=== PATIENT | male | born 1940 | race Caucasian/White ===

== ENCOUNTER 2020-04-15 13:35 | Outpatient (CLI) | payer MEDICARE, BC, SELFPAY | END 2020-04-15 13:36 | disposition home or self-care (01) | LOC: ANHCOVIDVC 13:35 | PROVIDERS: PCP Urology | DX: Z23 Encounter for immunization (principal) | CPT/HCPCS: 0001A; 91300 ==

== ENCOUNTER 2020-05-06 13:25 | Outpatient (CLI) | payer MEDICARE, BC, SELFPAY | END 2020-05-06 13:26 | disposition home or self-care (01) | LOC: ANHCOVIDVC 13:25 | PROVIDERS: PCP Urology | DX: Z23 Encounter for immunization (principal) | CPT/HCPCS: 0002A; 91300 ==

== ENCOUNTER 2020-09-10 15:49 | Outpatient (CLI) | payer MEDICARE, BC, SELFPAY ==
--- NOTE | ~2020-09-10 | XR_ITS ---
EXAMINATION: XR abdomen/kub 1V INDICATION: Right flank pain TECHNIQUE: Supine views of the abdomen were obtained on 2 radiographs. COMPARISON: None FINDINGS: There is a 9 mm calcification projecting in the expected location of the proximal right ure ter at the level of the L4 vertebral body. Stones measuring 7 mm and 5 mm are present in the right ki dney. There are multiple stones of the left kidney which measure up to 11 mm. There are phleboliths o f the pelvis. The bowel gas pattern is normal. There is moderate osteoarthritis of the hips. The visu alized lung bases are clear. Surgical clips in the right upper quadrant are likely from prior cholecy stectomy. IMPRESSION: 1. 9 mm stone projecting in the expected location of the proximal right ureter. 2. Bilateral nephrolithiasis. Reviewed, dictated and finalized at location A.
--- NOTE | ~2020-09-10 | CT_ITS ---
EXAMINATION: CT abdomen pelvis wo con EXAM DATE: 09/10/2020 16:18 INDICATION: Right flank pain. TECHNIQUE: Spiral CT of the abdomen and pelvis was performed without contrast. Axial, coronal and sag ittal images were reviewed. The dose-length product (DLP) for this examination was 413.18 mGy-cm. T he exposure was tailored according to patient size (auto mA exposure control), and iterative reconstr uction (ASIR) was used as additional dose reduction technique. There is no prior study for compariso n. FINDINGS: There is a right renal mass measuring 2.2 cm off the lower pole of the right kidney, hemorr hagic cyst versus renal cell cancer. There is a right proximal ureteral stone measuring 8 mm. There i s mild to moderate right-sided obstructive nephropathy. Multiple other bilateral calyceal stones, up to about 1 cm on the left. There is moderate prostatomegaly. Small bilateral inguinal fat-containing hernias. The bladder is unremarkable. The liver, spleen, adrenal glands and pancreas are unremarka ble. There are cholecystectomy clips. There is no retroperitoneal or pelvic lymphadenopathy. There are no findings to suggest appendicitis. The stomach and small bowel are unremarkable. There is expected amount of colonic stool. There is moderate sigmoid colonic diverticulosis. There is no a djacent inflammatory change to suggest diverticulitis. No free intraperitoneal gas. The heart is normal in size. There are no pericardial or pleural effusions. The lung bases are unremarkable. Th ere are no osteoblastic or osteolytic lesions identified. IMPRESSION: 1. Right-sided hemorrhagic cyst versus renal cell cancer. Follow-up ultrasound or contrast-enhanced CT recommended. 2. Right proximal ureteral 7 mm stone, mild to moderate obstructive nephropathy. 3. Bilateral nephrolithiasis. 4. Moderate sigmoid diverticulosis. 5. Moderate prostatomegaly. Reviewed, dictated and finalized at location B. IMPRESSION: 1. Right-sided hemorrhagic cyst versus renal cell cancer. Follow-up ultrasound or contrast-enhanced CT recommended. 2. Right proximal ureteral 7 mm stone, mild to moderate obstructive nephropath y. 3. Bilateral nephrolithiasis. 4. Moderate sigmoid diverticulosis. 5. Moderate prostatomegaly.
== END 2020-09-10 15:50 | disposition home or self-care (01) ==
LOC: ANHIMG 15:54
PROVIDERS: PCP Internal Medicine; Visit Provider Nurse Practitioner Adult Health
DX: K57.30 Diverticulosis of large intestine without perforation or abscess without bleeding (principal); N40.0 Benign prostatic hyperplasia without lower urinary tract symptoms; N20.2 Calculus of kidney with calculus of ureter
CPT/HCPCS: 74018; 74176

== ENCOUNTER 2020-09-23 10:51 | Outpatient (CLI) | payer MEDICARE, BC, SELFPAY ==
--- NOTE | ~2020-09-23 | XR_ITS ---
EXAMINATION: XR abdomen/kub 1V INDICATION: Right ureteral stone followup TECHNIQUE: Supine views of the abdomen were obtained on 2 radiographs. COMPARISON: 09/10/2020 FINDINGS: The previously described 9 mm right proximal ureteral stone is no longer identified. There are smaller stones, likely stone fragments, in the expected location of the distal right ureter which measure up to 4 mm. Stones measuring 7 mm and 5 mm are present in the right kidney. There are multip le stable stones of the left kidney which measure up to 11 mm. The bowel gas pattern is normal. There is moderate osteoarthritis of the hips. There are phleboliths of the left pelvis. IMPRESSION: 1. Likely interval treatment of the previously described right proximal ureteral stone with small sto ne fragments in the expected location of the distal right ureter. Reviewed, dictated and finalized at location B. IMPRESSION: 1. Likely interval treatment of the previously described right proximal uretera l stone with small stone fragments in the expected location of the distal right ureter.
== END 2020-09-23 10:52 | disposition home or self-care (01) ==
PROVIDERS: PCP Internal Medicine; Visit Provider Nurse Practitioner Adult Health
DX: N20.1 Calculus of ureter (principal)
CPT/HCPCS: 74018

== ENCOUNTER 2020-09-30 16:24 | Outpatient (CLI) | payer MEDICARE, BC, SELFPAY ==
[2020-09-30 17:07] LABS: Hematocrit 43.3 % (42.0-52.0); Hemoglobin 14.8 g/dL (14.0-18.0)
== END 2020-09-30 16:25 | disposition home or self-care (01) ==
PROVIDERS: PCP Internal Medicine; Referring Provider Anesthesiology; Visit Provider Urology
DX: N20.1 Calculus of ureter (principal); D64.9 Anemia, unspecified; Z01.818 Encounter for other preprocedural examination
CPT/HCPCS: 36415; 85014; 85018; 87086

== ENCOUNTER 2020-10-02 05:17 | Day surgery (SDC) | payer MEDICARE, BC, SELFPAY ==
[2020-09-30 15:43] VITALS: BMI 30.4
--- NOTE | ~2020-10-02 | XR_ITS ---
EXAMINATION: XR retrograde pyelo w/stent RT DATE: 10/02/2020 10:51 INDICATION: Right internal ureteral stent placement TECHNIQUE: Fluoroscopic images from a right internal ureteral stent placement are submitted for max varma 19 seconds of fluoroscopy time. 11 fluoroscopic images. FINDINGS: There is a right double-J internal ureteral stent projecting in expected position, with proximal [place] loop at the level of the renal pelvis and distal loop in the pelvis within the bladder lumen. IMPRESSION: 1. Right internal ureteral stent placement. Please refer to real-time procedural findings for kelley romero. Reviewed, dictated and finalized at location A. IMPRESSION: 1. Right internal ureteral stent placement. Please refer to real-time procedu ral findings for details.
--- NOTE | 2020-10-02 08:34 | ECG_ITS ---
Measurements Intervals [place] Rate: 88 P: 0 ID: [id number] QRS: -12 QRSD: 106 T: 12 QT: 375 QTc: 456 Interpretive Statements SINUS RHYTHM WITH FIRST DEGREE AV BLOCK DELAYED PRECORDIAL R/S TRANSITION BORDERLINE T WAVE ABNORMALITY- INFERIOR LEADS BASELINE ARTIFACT- I, II, AVR, AVF ABNORMAL ECG Electronically Signed On 10-02-2020 9:44:54 CDT by Titus Thompson D.O.
--- NOTE | 2020-10-02 08:38 | WPDHPUPDATE1 ---
History and Physical Update Update Date/Time: 10/02/20 08:38 History and Physical has been reviewed, including an updated exam of the patient. There are NO changes in the patient's condition. Risks, benefits, and alternatives have been discussed and questions answered. Patient agrees to proceed with procedure.
[2020-10-02] MEDS: LACTATED RINGERS 1,000 ML 30 ML IV CONT (08:44)
[2020-10-02 08:49] VITALS: BP 148/85; PULSE 93; RESP 18; TEMP 36.9; O2SAT 99
--- NOTE | 2020-10-02 09:00 | WPDHPUPDATE1 ---
History and Physical Update Update Date/Time: 10/02/20 09:00 History and Physical has been reviewed, including an updated exam of the patient. There are NO changes in the patient's condition. Risks, benefits, and alternatives have been discussed and questions answered. Patient agrees to proceed with procedure. Proceed with cysto, right retrograde, right ureteroscopy with stone extraction , stent possible laser
--- NOTE | 2020-10-02 09:11 | WPDANESEPPF ---
Anes - Initial Pre Proc Eval Procedure: Operation Date: 10/02/20 10:00 Proposed Procedures p Cystoscopy, Right Ureteroscopy, Right Retrograde Pyelogram, Right Stone Extraction, Possible Right Stent Placement, - Angel Howell MD s Possible Holmium Laser Procedure - Angel Howell MD Date/Time: 10/02/20 09:11 Surgeon: Angel Howell MD Pre Op Diagnosis: right ureteral stone Patient Data Age: 80 Gender: M Height: 1.83 m Weight: 101.6 kg Last Vital Signs Temp 36.9 C 10/02/20 08:49 Pulse 93 10/02/20 08:49 Resp 18 10/02/20 08:49 BP 148/85 H 10/02/20 08:49 Pulse Ox 99 10/02/20 08:49 Allergies Allergy/AdvReac Type Severity Reaction Status Date / Time No Known Allergies Allergy Verified 10/02/20 08:48 Home Medications Medication Instructions Recorded Confirmed Type allopurinol 300 mg PO DAILY 09/30/20 10/02/20 History amlodipine 10 mg PO HS 09/30/20 10/02/20 History atorvastatin 40 mg PO HS 09/30/20 10/02/20 History calcium carbonate [Caltrate 600] 600 mg PO BID 09/30/20 10/02/20 History ferrous sulfate 325 mg PO DAILY 09/30/20 10/02/20 History hydrocodone-acetaminophen 1 tablet PO Q4-6H PRN 09/30/20 10/02/20 History irbesartan 150 mg PO QAM 09/30/20 10/02/20 History magnesium 200 mg PO DAILY 09/30/20 10/02/20 History multivitamin [Multiple Vitamin] 1 tablet PO DAILY 09/30/20 10/02/20 History omega-3 fatty acids-vitamin E 1 cap PO BID 09/30/20 10/02/20 History [Fish Oil] ondansetron 4 mg PO QID PRN 09/30/20 10/02/20 History selenium 200 mcg PO DAILY 09/30/20 10/02/20 History ustekinumab [Stelara] 90 mg SUBCUT USEASDIRECTD 09/30/20 10/02/20 History vitamin B complex 1 cap PO DAILY 09/30/20 10/02/20 History Patient hx anesthesia problems: none Family hx anesthesia problems: none [facility] Past Medical History Medical History (Updated 10/02/20 @ 09:12 by Robbie Valle MD) HTN (hypertension) Hyperlipidemia Obesity BOSSMAN (obstructive sleep apnea) Surgical History Surgical History (Updated 10/02/20 @ 09:12 by Robbie Valle MD) H/O lithotripsy Social History Social History Smoking status: Former smoker Tobacco type: cigars Smoking end date: 08/13/84 Additional smoking assessment comments: 3 CIGARS/DAY X 10 Alcohol intake: current Drinks per week: 5 Substance use: never Living arrangements: with family Additional living arrangements comments: Spiritual care concerns: No Anes - Eval Final PreProcedure Day of Procedure 10/02/20 09:11 Patient weight: obese Heart: regular rate and rhythm Lungs: clear to auscultation Airway: Mallampati scale class II Neurological: alert and oriented Last oral intake: >/= 8 hours ASA classification: III Emergent: no Anesthetic plan: proceed Anesthesia type and monitoring: general GIVS and standard monitoring Informed Consent: The patient's anesthetic plan and its attendant risks and benefits were discussed with the patient/family/POA. Questions were solicited and answers provided to the satisfaction of the patient/family/POA.
[2020-10-02] MEDS: ceFAZolin 2 GM/D5W 50 ML 2 GM/50 ML BAG IVPB (09:49)
[2020-10-02] MEDS: LIDOCAINE HCL 2% JELLY 5 ML TUBE 1 APPLIC MUCOUS MEM (10:40)
--- NOTE | 2020-10-02 10:44 | W.PM.PROC2 ---
Procedure Note - Detailed Date of Procedure 10/02/20 Pre-op Diagnosis right ureteral stone, right renal stone Post-op Diagnosis same Procedure Performed Cystoscopy, right retrograde pyelogram, right ureteroscopy with stone extraction, holmium laser of right renal calculus, right ureteral stent placement 4.8 Pan[place]ian contour Surgeon Angel Howell MD Anesthesia general Description of Procedure Patient is taken the operative suite correctly identified. Once anesthesia was obtained he was placed in dorsal lithotomy position and prepped and draped usual sterile fashion. Nineteen Panamanian scope inserted the bladder. He does have an enlarged prostate. The right ureteral orifice was cannulated with a guidewire. We dilated with an 810 dilator. Rigid ureteral scope was inserted. He has a very large fragment in the distal ureter which we were able to actually extract and sent for analysis. There were no residual stones in the distal ureter. He had also had a couple of small fragments in the bladder which were retrieved sent for analysis. The ureteral access sheath was then placed. Mini flexible ureteroscope was inserted up in the kidney. He had 1 stone that was in a calyx just for treating from mucosa. We used the holmium laser fiber to fragment this multiple small pieces of retrieve some of those. He had another stone located in a more medial calyx which the scope could not fully flex to get into. We were able to fragment the tip of this off. At this point we terminated procedure. The stone may not be an issue going forward if it is will deal with it appropriately at that time. Pyelogram was then performed to confirm placement of the stent. 4.8 Panamanian contour stent was then placed with the proximal end coiled in the renal pelvis and the distal. Bladder was drained. 2% viscous lidocaine was inserted into the urethra patient was taken recovery room stable condition. He will follow up in a week's time for stent removal. Drains Yes Packing No Pathology yes Complications No immediate complications Condition stable Disposition PACU
[2020-10-02 10:53] VITALS: BP 129/69; PULSE 75; RESP 14; TEMP 36.7; O2SAT 98
[2020-10-02 11:04] VITALS: BP 125/65; PULSE 74; RESP 14; O2SAT 100
--- NOTE | 2020-10-02 11:15 | SUR.PHASEI ---
PT AWAKE, ALERT, TALKATIVE. DENIES PAIN OR NAUSEA.
[2020-10-02 11:20] VITALS: BP 151/77; PULSE 80; RESP 16; O2SAT 95
--- NOTE | 2020-10-02 11:27 | SUR.PHASEI ---
PT AWAKE AND ALERT. TALKATIVE. DENIES PAIN. READY TO SEE SPOUSE.
[2020-10-02 11:40] VITALS: BP 147/55; PULSE 89
[2020-10-02 12:20] VITALS: BP 156/62; PULSE 92; RESP 20
== END 2020-10-02 12:28 | disposition home or self-care (01) ==
PROVIDERS: PCP Internal Medicine; Visit Provider Urology
PROC: (CPT 52352; principal; 2020-10-02 10:00)
PROC: (CPT 52356; 2020-10-02 10:00)
DX: N20.2 Calculus of kidney with calculus of ureter (principal); I10 Essential (primary) hypertension; E78.5 Hyperlipidemia, unspecified; G47.33 Obstructive sleep apnea (adult) (pediatric); Z87.891 Personal history of nicotine dependence; E66.9 Obesity, unspecified; Z68.30 Body mass index [BMI] 30.0-30.9, adult; I44.0 Atrioventricular block, first degree
CPT/HCPCS: 52356; 74420; 82365; 88300; 93005; A9270; C1769; C1894; C2617; J0690; J1100; J2405; J2704; J3010; J7120; Q9966

== ENCOUNTER 2020-11-24 14:50 | Outpatient (CLI) | payer MEDICARE, BC, SELFPAY ==
--- NOTE | ~2020-11-24 | XR_ITS ---
XR abdomen/kub 1V DATE: 11/24/2020 15:13 INDICATION: Right ureteral stone TECHNIQUE: AP projection, 2 views COMPARISON: 10/02/2020 right retrograde pyelogram. Or directly 09/23/2020 KUB FINDINGS: There is an approximately 8 x 11 mm calcification overlying the proximal left ureter. Multiple calcifications overlie the renal silhouettes. Surgical clips overlie right upper quadrant, likely due to cholecystectomy. The psoas shadows are intact. No visceromegaly is evident. There is no evidence of bowel obstruction. Degenerative changes of the thoracic and lumbar spine. There is a benign lucent lesion of the subtroc hanteric area of the proximal left femur with thin sclerotic margin. IMPRESSION: 11 mm proximal left ureteral calcified calculus Bilateral nephrolithiasis Status post cholecystectomy. Cartilage Reviewed, dictated and finalized at Location A. Reviewed, dictated and finalized at location B.
== END 2020-11-24 14:51 | disposition home or self-care (01) ==
LOC: ANHIMG 14:55
PROVIDERS: PCP Internal Medicine; Visit Provider Urology
DX: N20.2 Calculus of kidney with calculus of ureter (principal); Z90.49 Acquired absence of other specified parts of digestive tract
CPT/HCPCS: 74018

== ENCOUNTER 2020-11-30 10:26 | Outpatient (CLI) | payer MEDICARE, BC, SELFPAY ==
[2020-11-30 10:47] LABS: Hemoglobin 13.6 g/dL (14.0-18.0)
[2020-11-30 10:56] LABS: INR 0.9; Prothrombin Time 12.5 Seconds (11.1-14.7)
[2020-11-30 10:57] LABS: Partial Thromboplastin Time 31.7 SECONDS (22.3-36.8)
== END 2020-11-30 10:27 | disposition home or self-care (01) ==
PROVIDERS: Anesthesiology; PCP Internal Medicine; Visit Provider Urology
DX: N20.0 Calculus of kidney (principal); D64.9 Anemia, unspecified; Z01.818 Encounter for other preprocedural examination
CPT/HCPCS: 36415; 85014; 85018; 85610; 85730; 87077; 87086; 87088; 87186

== ENCOUNTER 2020-12-03 11:29 | Outpatient (CLI) | payer MEDICARE, BC, SELFPAY ==
--- NOTE | ~2020-12-03 | XR_ITS ---
XR abdomen/kub 1V 12/03/2020 11:55 Indication: ESWL Procedure: KUB Comparison: 11/24/2020 Findings: There are left renal stones, largest in the renal pelvis near the expected location of the UPJ measuring 12 x 7 mm. There are cholecystectomy clips. Bowel gas pattern is nonobstructive. There are small right renal stones in the lower pole as well. There are pelvic phleboliths. Moderate lumbar spondylosis. Impression: 1: Bilateral nephrolithiasis. Reviewed, dictated and finalized at location B. Impression: 1: Bilateral nephrolithiasis.
== END 2020-12-03 11:30 | disposition home or self-care (01) ==
LOC: ANHIMG 11:31
PROVIDERS: PCP Internal Medicine; Visit Provider Urology
DX: N20.0 Calculus of kidney (principal)
CPT/HCPCS: 74018

== ENCOUNTER 2020-12-04 02:17 | Day surgery (SDC) | payer MEDICARE, BC, SELFPAY ==
[2020-11-27 13:26] VITALS: BMI 29.2
--- NOTE | 2020-11-27 15:43 | PM.HPGS ---
History of Present Illness History of Present Illness Consent: Risks, benefits, and alternatives have been discussed and questions answered. Patient agrees to proceed with procedure. Chief complaint: kidney stones left upj Narrative: Karen Murphy is a 80 year old male who has recently been troubled by persistent dysuria and urinary tract infections. Evaluation for that led to imaging that demonstrates a calcified 11 mm left proximal ureteral stone. He presents for lithotripsy with possible stent placement. After discussion of options he elects for ESWL. He is aware the risk including, but not limited to, adverse cardiopulmonary events, renal bleeding leading to perinephric hematoma, failure to fracture the stone need for repeat or additional procedures. Review of Systems Cardiovascular: Cardiovascular: Denies chest pain, Denies lightheadedness, Denies palpitations and Denies dyspnea Respiratory: Respiratory: Denies dyspnea Gastrointestinal: Gastrointestinal: Denies diarrhea, Denies nausea and Denies vomiting Genitourinary: Genitourinary: Denies hematuria and Denies dysuria Endocrine: Endocrine: Denies palpitations PMF Past Medical History Medical History HTN (hypertension) Hyperlipidemia Obesity BOSSMAN (obstructive sleep apnea) Surgical History Surgical History H/O lithotripsy Social History Social History Smoking status: Former smoker Tobacco type: cigarettes and cigars Smoking end date: 08/13/84 Additional smoking assessment comments: 3 CIGARS/DAY X 10 Alcohol intake: current Drinks per week: 7 Substance use: never Additional living arrangements comments: Spiritual care concerns: No Meds Home Medications and Allergies Home Medications Medication Instructions Recorded Confirmed Type Stelara 90 mg SUBCUT USEASDIRECTD 09/30/20 11/27/20 History allopurinol 300 mg PO DAILY 09/30/20 11/27/20 History amlodipine 10 mg PO HS 09/30/20 11/27/20 History atorvastatin 40 mg PO HS 09/30/20 11/27/20 History calcium carbonate 600 mg PO BID 09/30/20 11/27/20 History ferrous sulfate 325 mg PO DAILY 09/30/20 11/27/20 History hydrocodone-acetaminophen 1 tablet PO Q4-6H PRN 09/30/20 11/27/20 History irbesartan 150 mg PO QAM 09/30/20 11/27/20 History magnesium 200 mg PO DAILY 09/30/20 11/27/20 History multivitamin 1 tablet PO DAILY 09/30/20 11/27/20 History omega-3 fatty acids-vitamin E 1 cap PO BID 09/30/20 11/27/20 History selenium 200 mcg PO DAILY 09/30/20 11/27/20 History vitamin B complex 1 cap PO DAILY 09/30/20 11/27/20 History sulfamethoxazole-trimethoprim 1 tablet PO BID 11/27/20 11/27/20 History Allergies Allergy/AdvReac Type Severity Reaction Status Date / Time No Known Allergies Allergy Verified 11/27/20 13:25 Exam Const: General: no acute distress Resp: Effort & Inspection: normal respiratory effort GI: Inspection: non-distended GI Palp: No abdominal tenderness and No Guarding due to palpation present (GI) Auscultation: normal bowel sounds Assessment and Plan Assessment and plan (1) Left ureteral stone: Code(s): N20.1 - Calculus of ureter Status: Acute Assessment and Plan: Left ESWL, possible cystoscopy with left ureteral stent placement
--- NOTE | ~2020-12-04 | XR_ITS ---
EXAMINATION: XR abdomen/kub 1V DATE: 12/04/2020 06:48 INDICATION: Kidney stone. TECHNIQUE: A supine view of the abdomen on 2 radiographs was obtained. COMPARISON: CT abdomen and pelvis 09/10/2020 FINDINGS: There are no dilated loops of bowel. Surgical clips in the right upper quadrant are likely from cholecystectomy. There are least 4 stones in right kidney measuring up to 4 mm. There are at mami st 5 stones in left kidney measuring up to 7 mm. There is an 7 x 12 mm stone in proximal left ureter. There are phleboliths in left pelvis. IMPRESSION: 1. Stones in the kidneys and proximal left ureter. Reviewed, dictated and finalized at location A.
--- NOTE | 2020-12-04 06:53 | WPDHPUPDATE1 ---
History and Physical Update Update Date/Time: 12/04/20 06:53 History and Physical has been reviewed, including an updated exam of the patient. There are NO changes in the patient's condition. Risks, benefits, and alternatives have been discussed and questions answered. Patient agrees to proceed with procedure.
--- NOTE | 2020-12-04 07:51 | WPDANESEPPF ---
Anes - Initial Pre Proc Eval Procedure: Operation Date: 12/04/20 08:30 Proposed Procedures p Left Extracorporeal Shock Wave Lithotripsy - Gerard Lombardi MD Date/Time: 12/04/20 07:51 Surgeon: Gerard Lombardi MD Pre Op Diagnosis: kidney stones left upj Patient Data Age: 80 Gender: M Height: 1.83 m Weight: 100.4 kg Allergies Allergy/AdvReac Type Severity Reaction Status Date / Time No Known Allergies Allergy Verified 12/04/20 07:02 Home Medications Medication Instructions Recorded Confirmed Type Stelara 90 mg SUBCUT USEASDIRECTD 09/30/20 11/27/20 History allopurinol 300 mg PO DAILY 09/30/20 12/04/20 History amlodipine 10 mg PO HS 09/30/20 12/04/20 History atorvastatin 40 mg PO HS 09/30/20 12/04/20 History calcium carbonate 600 mg PO BID 09/30/20 12/04/20 History ferrous sulfate 325 mg PO DAILY 09/30/20 12/04/20 History hydrocodone-acetaminophen 1 tablet PO Q4-6H PRN 09/30/20 11/27/20 History irbesartan 150 mg PO QAM 09/30/20 12/04/20 History magnesium 200 mg PO DAILY 09/30/20 12/04/20 History multivitamin 1 tablet PO DAILY 09/30/20 12/04/20 History omega-3 fatty acids-vitamin E 1 cap PO BID 09/30/20 12/04/20 History selenium 200 mcg PO DAILY 09/30/20 12/04/20 History vitamin B complex 1 cap PO DAILY 09/30/20 12/04/20 History Patient hx anesthesia problems: none Family hx anesthesia problems: none Results Review: All pre-operative results and documents have been reviewed as part of the pre-operative evaluation. [facility] Past Medical History Medical History HTN (hypertension) Hyperlipidemia Obesity BOSSMAN (obstructive sleep apnea) Surgical History Surgical History (Updated 12/04/20 @ 07:52 by Robbie Valle MD) H/O colonoscopy H/O lithotripsy Social History Social History Smoking status: Former smoker Tobacco type: cigarettes and cigars Smoking end date: 08/13/84 Additional smoking assessment comments: 3 CIGARS/DAY X 10 Alcohol intake: current Drinks per week: 7 Substance use: never Living arrangements: with family Additional living arrangements comments: Spiritual care concerns: No Anes - Eval Final PreProcedure Day of Procedure 12/04/20 07:51 Patient weight: obese Heart: regular rate and rhythm Lungs: clear to auscultation Airway: Mallampati scale class II Neurological: alert and oriented Last oral intake: >/= 8 hours ASA classification: III Emergent: no Anesthetic plan: proceed Anesthesia type and monitoring: general LMA and standard monitoring Results Review: All pre-operative results and documents have been reviewed as part of the pre-operative evaluation. Informed Consent: The patient's anesthetic plan and its attendant risks and benefits were discussed with the patient/family/POA. Questions were solicited and answers provided to the satisfaction of the patient/family/POA.
[2020-12-04] MEDS: LACTATED RINGERS 1,000 ML 30 ML IV CONT (08:10)
[2020-12-04] MEDS: ceFAZolin 2 GM/D5W 50 ML 2 GM/50 ML BAG IVPB (08:13)
--- NOTE | 2020-12-04 08:37 | W.PM.PROC2 ---
Procedure Note - Detailed Date of Procedure 12/04/20 Pre-op Diagnosis Left proximal ureteral stone Post-op Diagnosis same Procedure Performed Left ESWL Surgeon Gerard Lombardi MD Anesthesia general Description of Procedure The patient was brought to the operative suite where he was placed in the supine position on the Dornier lithotripsy table. The focal point of the lithotripter was placed at a 7x12mm left proximal ureteral calculus. A total of 3000 shocks were delivered at a power setting of 4. There appeared to be good fragmentation of the stone. The patient tolerated the procedure well and was taken to the recovery room in good condition. Estimated Blood Loss 0 Drains No Packing No Pathology none sent Complications No immediate complications Condition stable Disposition PACU
[2020-12-04 09:05] VITALS: BP 113/77; PULSE 87; RESP 8; TEMP 36.5; O2SAT 100
[2020-12-04 09:20] VITALS: BP 116/65; PULSE 78; RESP 17; O2SAT 100
[2020-12-04 09:34] VITALS: BP 125/68; PULSE 81; RESP 16; O2SAT 96
[2020-12-04 09:49] VITALS: BP 123/69; PULSE 86; RESP 16; O2SAT 96
[2020-12-04 10:00] VITALS: BP 149/84; PULSE 89
[2020-12-04 10:20] VITALS: BP 150/71; PULSE 90
== END 2020-12-04 10:31 | disposition home or self-care (01) ==
PROVIDERS: PCP Internal Medicine; Visit Provider Urology
PROC: (CPT 50590; principal; 2020-12-04 08:30)
DX: N20.1 Calculus of ureter (principal); I10 Essential (primary) hypertension; E78.5 Hyperlipidemia, unspecified; G47.33 Obstructive sleep apnea (adult) (pediatric); E66.9 Obesity, unspecified; Z68.30 Body mass index [BMI] 30.0-30.9, adult; Z87.891 Personal history of nicotine dependence
CPT/HCPCS: 50590; 74018; J0690; J1100; J2405; J2704; J3010; J7120

== ENCOUNTER 2020-12-10 14:57 | Outpatient (CLI) | payer MEDICARE, BC, SELFPAY ==
--- NOTE | ~2020-12-10 | XR_ITS ---
XR abdomen/kub 1V 12/10/2020 15:27 Indication: Renal stones. Lithotripsy. Procedure: KUB Comparison: Comparison to multiple prior studies sequentially, with oldest reviewed study dated 09/23. Findings: Stable bilateral renal stone burden compared with 12/04/2020. There are more stones in the left kidney compared with the right. Largest presumably in the left renal pelvis measuring 14 x 7 mm. There are cholecystectomy clips. Bowel gas pattern is nonobstructive. Stable benign-appearing circum scribed radiolucent lesion proximal aspect of the left femur. No acute osseous abnormality. Impression: 1: Stable bilateral nephrolithiasis. Largest stone burden in the left kidney. Reviewed, dictated and finalized at location A. Impression: 1: Stable bilateral nephrolithiasis. Largest stone burden in the left kidney.
== END 2020-12-10 14:58 | disposition home or self-care (01) ==
PROVIDERS: PCP Internal Medicine; Visit Provider Urology
DX: N20.0 Calculus of kidney (principal)
CPT/HCPCS: 74018

== ENCOUNTER 2020-12-24 13:41 | Outpatient (CLI) | payer MEDICARE, BC, SELFPAY ==
--- NOTE | ~2020-12-24 | XR_ITS ---
XR abdomen/kub 1V 12/24/2020 14:06 Indication: Renal stone Procedure: KUB Comparison: Comparison to multiple prior studies sequentially, with oldest reviewed study dated 11/13. Findings: There are left renal stones. There is a left pelvic phlebolith. No pattern is nonobstructiv e. There are small right renal stones. Impression: 1: Bilateral nephrolithiasis. Reviewed, dictated and finalized at location A. SCHEDULER Impression: 1: Bilateral nephrolithiasis.
== END 2020-12-24 13:42 | disposition home or self-care (01) ==
PROVIDERS: PCP Internal Medicine; Visit Provider Urology
DX: N20.0 Calculus of kidney (principal)
CPT/HCPCS: 74018

== ENCOUNTER 2020-12-28 15:47 | Emergency (ER) | payer MEDICARE, BC, SELFPAY ==
--- NOTE | ~2020-12-28 | CT_ITS ---
EXAMINATION: CT abdomen pelvis wo con DATE: 12/28/2020 19:41 INDICATION: Nephrolithiasis presenting with left flank pain. TECHNIQUE: Computed tomography (CT) of the abdomen and pelvis was performed without intravenous contr ast. Automated exposure control and iterative reconstruction technique were employed. The dose-length product was 354.59 mGy-cm. COMPARISON: 09/10/2020 FINDINGS: Minimal dependent atelectasis at the bilateral lung bases. Heart size is normal. No pericardial or pl eural effusion. Aortic valve calcification. Cholecystectomy clips the gallbladder fossa. Mild diffuse hepatic steatosis. Spleen and bilateral adrenal glands are normal. Mild fatty atrophy of the pancrea s. Bilateral nephrolithiasis with 4 stones in the right kidney measuring up to 4 mm and 5 stones in t he left kidney measuring up to 6 mm. 9 x 6 x 5 mm proximal left ureteral stone with mild to moderate left hydroureteronephrosis. Bilateral low-attenuation renal cysts. In addition there are couple indet erminate exophytic renal lesions with greater than simple fluid attenuation measuring 9 mm at the upp er pole of the left kidney and 2.3 cm the lower pole of the right kidney which could represent either proteinaceous/hemorrhagic cysts or solid renal cell carcinomas. There is moderate colonic diverticul osis with a sigmoid predominance. There is no adjacent inflammatory change to suggest diverticulitis . Normal appendix. No bowel obstruction. Bladder is normal. Prostatomegaly. Small fat-containing left inguinal hernia. No free intraperitoneal gas or fluid. No pathologically enlarged abdominal or pelvi c lymphadenopathy. Moderate to severe bilateral sacroiliitis versus osteoarthritis. IMPRESSION: 1. Bilateral nephrolithiasis with obstructing 9 x 6 x 5 mm proximal left ureteral stone with mild to moderate left hydroureteronephrosis. 2. Couple indeterminate exophytic lesions at the left and right kidneys, the larger on the right susy uring 2.3 cm which are equivocal for complex cyst versus renal cell carcinoma. Recommend follow-up pr e and postcontrast MRI or CT. 3. Moderate diverticulosis. 4. Moderate prostatomegaly. Reviewed, dictated and finalized at location A. OR PYTHON DEVELOPER IMPRESSION: 1. Bilateral nephrolithiasis with obstructing 9 x 6 x 5 mm proximal left ureter al stone with mild to moderate left hydroureteronephrosis. 2. Couple indeterminate exophytic lesions at the left and right kidneys, the la rger on the right measuring 2.3 cm which are equivocal for complex cyst versus renal cell carcinoma. Recommend follow-up pre and postcontrast MRI or CT. 3. Moderate diverticulosis. 4. Moderate prostatomegaly.
[2020-12-28 16:01] VITALS: BP 157/82; PULSE 108; RESP 20; TEMP 37.7; O2SAT 99
[2020-12-28 16:20] LABS: Basophils Percent Auto 0.3 % (0.2-1.2); Eosinophils Absolute Auto 0.1 K/mm3 (0-0.3); Hematocrit 39.6 % (42.0-52.0); Hemoglobin 13.3 g/dL (14.0-18.0); Immature Granulocyte Absolute 0.07 K/mm3 (0.00-0.031); Immature Granulocyte Percent A 1.1 % (0-0.5); Lymphocytes Absolute Auto 1.51 K/mm3 (0.9-3.2); Lymphocytes Percent Auto 24.3 % (18.3-44.2); Mean Corpuscular HGB Conc 33.6 g/dl (32-36); Mean Corpuscular Hemoglobin 30.9 pg (26-34); Mean Corpuscular Volume 92.1 fl (80-100); Mean Platelet Volume 10.5 fl (7.4-10.4); Monocytes Absolute Auto 0.5 K/mm3 (0.1-0.6); Monocytes Percent Auto 8.5 % (2.6-8.5); Neutrophils Percent Auto 64.8 % (45.5-73.1); Platelet Count Result 213 k/mm3 (150-375); Red Cell Distribution Width 14.7 % (11.5-14.5); White Blood Count 6.2 K/mm3 (4.5-10.0)
[2020-12-28 16:37] LABS: Alanine Aminotransferase 24 U/L (4-50); Albumin Level 4.3 g/dL (3.5-5.1); Alkaline Phosphatase 125 U/L (38-126); Anion Gap 13 mmol/L (8-16); Aspartate Amino Transferase 26 U/L (17-59); Bilirubin,Total 0.5 mg/dL (0.2-1.3); Blood Urea Nitrogen 24 mg/dL (9-20); Calcium 9.5 mg/dL (8.4-10.2); Carbon Dioxide 22 mmol/L (22-30); Chloride 105 mmol/L (98-107); Estimated CRCL calculation 45 ml/min; Estimated Glomerular Filt Rate 53; Glucose 159 mg/dL (65-110); Lipase 76 U/L (23-300); Potassium 3.9 mmol/L (3.4-5.0); Sodium 140 mmol/L (137-145)
[2020-12-28 17:06] LABS: Add Urine Microscopic? YES; Appearance Urine Cloudy (Clear); Bacteria Urine Trace /hpf; Bilirubin Urine Negative (Negative); Color Urine Yellow (Yellow); Glucose Urine UA Negative (Negative); Ketones Urine Negative (Negative); Leukocyte Esterase Ur 3+ LEU/UL (Negative); Mucus Urine Rare /lpf; Nitrate Urine Negative (Negative); Protein Urine 1+ mg/dL (Negative); Specific Grav Ur 1.013 (1.001-1.035); Urobilinogen Urine Negative mg/dL (<2.0); WBC Urine >75 /hpf
[2020-12-28 17:08] LABS: Blood Urine Negative (Negative)
[2020-12-28 19:30] VITALS: BP 157/82; PULSE 82; RESP 16; TEMP 37.7; O2SAT 99
--- NOTE | 2020-12-28 20:14 | PC.NURSE ---
charted on wrong pt= this patient- at 2008= disregard the notes from 2008 fo this patient.
--- NOTE | 2020-12-28 20:25 | ED.GENADULT ---
HPI - General Adult General Chief complaint: Fever Stated complaint: kidney stone Time Seen by Provider: 12/28/20 19:15 Source: patient Mode of arrival: ambulatory Limitations: no limitations History of Present Illness HPI narrative: Patient is a 80-year-old male male presenting with chief complaint of intermittent left-sided flank pain and fevers over the past week. Patient reports that on 04 December he had a lithotripsy performed by Dr. Contreras. He states that he was told that additional stones were seen that were very large and they were unsure if he will pass it. Patient states that he had a follow-up on December 15 and was told that he has still not passed a large stone and they were going to give an additional 10 days. Patient reports that he has had some intermittent fevers some low-grade and some as high as 102 ?F. Patient reports that he last took Tylenol at 8 AM this morning. Patient denies any nausea or vomiting. He denies any abdominal pain or flank pain at this time. Patient reports that he urinates frequently and notices states of irritation. Patient reports that he saw Dr. Contreras' office and spoke to Sheri the nurse practitioner who directed him to the emergency department. Related Data Home Medications Medication Instructions Recorded Confirmed Stelara 90 mg SUBCUT USEASDIRECTD 09/30/20 11/27/20 allopurinol 300 mg PO DAILY 09/30/20 12/04/20 amlodipine 10 mg PO HS 09/30/20 12/04/20 atorvastatin 40 mg PO HS 09/30/20 12/04/20 calcium carbonate 600 mg PO BID 09/30/20 12/04/20 ferrous sulfate 325 mg PO DAILY 09/30/20 12/04/20 hydrocodone-acetaminophen 1 tablet PO Q4-6H PRN 09/30/20 11/27/20 irbesartan 150 mg PO QAM 09/30/20 12/04/20 magnesium 200 mg PO DAILY 09/30/20 12/04/20 multivitamin 1 tablet PO DAILY 09/30/20 12/04/20 omega-3 fatty acids-vitamin E 1 cap PO BID 09/30/20 12/04/20 selenium 200 mcg PO DAILY 09/30/20 12/04/20 vitamin B complex 1 cap PO DAILY 09/30/20 12/04/20 Allergies Allergy/AdvReac Type Severity Reaction Status Date / Time No Known Allergies Allergy Verified 12/28/20 19:32 Review of Systems Review of Systems: CONSTITUTIONAL: Reports fever, denies chills, or sweats. EYES: Denies visual changes, redness, or discharge. ENT: Denies rhinorrhea, congestion, sore throat, or otalgia. CARDIOVASCULAR: Denies chest pain, palpitations, or edema. RESPIRATORY: Denies cough or dyspnea. GASTROINTESTINAL: Denies abdominal pain, nausea, vomiting, or diarrhea. GENITOURINARY: Reports dysuria and intermittent flank pain denies hematuria. SKIN: Denies rash or itching. MUSCULOSKELETAL: Denies back pain, joint pain, or myalgia. NEUROLOGIC: Denies headache, numbness, dizziness, or weakness. PSYCHIATRIC: Denies anxiety or depression. [facility]LY [facility] Past Medical History Medical History (Updated 12/28/20 @ 20:53 by Jeimy Montiel PA-C) HTN (hypertension) Hyperlipidemia Obesity BOSSMAN (obstructive sleep apnea) Surgical History Surgical History (Updated 12/04/20 @ 07:52 by Robbie Valle MD) H/O colonoscopy H/O lithotripsy Social History Social History Smoking status: Former smoker Tobacco type: cigarettes and cigars Smoking end date: 08/13/84 Additional smoking assessment comments: 3 CIGARS/DAY X 10 Alcohol intake: current Drinks per week: 7 Substance use: never Additional living arrangements comments: Spiritual care concerns: No Exam Narrative: GENERAL: Well-appearing, well-nourished, and in no acute distress. Nontoxic in appearance. HEAD: Normocephalic, atraumatic. EYES: PERRLA and EOMI. ENT: Nares clear, no rhinorrhea or epistaxis. Mucous membranes moist. Oropharynx without tonsillar hypertrophy exudate or other lesions. Bilateral TMs pearly resendez nonbulging CHEST: Clear to auscultation. No respiratory distress. No wheezes rales or rhonchi HEART: Sinus arrhythmia auscultated. ABDOMEN: Soft, nontender, nondistended, n
[2020-12-28 21:13] VITALS: BP 146/74; PULSE 98; RESP 16; TEMP 37.6; O2SAT 99
--- NOTE | 2020-12-28 21:25 | PC.NURSE ---
Cefriaxone hung and given. Medication would not scan due to broken label.
== END 2020-12-28 21:25 | disposition home or self-care (01) ==
PROVIDERS: Emergency Medicine; Emergency Provider Emergency Medicine; PCP Internal Medicine
DX: N13.2 Hydronephrosis with renal and ureteral calculous obstruction (principal); R82.998 Other abnormal findings in urine; I10 Essential (primary) hypertension; E78.5 Hyperlipidemia, unspecified; G47.33 Obstructive sleep apnea (adult) (pediatric); E66.9 Obesity, unspecified; Z68.29 Body mass index [BMI] 29.0-29.9, adult; Z87.891 Personal history of nicotine dependence; K57.90 Diverticulosis of intestine, part unspecified, without perforation or abscess without bleeding; N40.0 Benign prostatic hyperplasia without lower urinary tract symptoms; N28.9 Disorder of kidney and ureter, unspecified
CPT/HCPCS: 36415; 74176; 80053; 81001; 83690; 85025; 87086; 87147; 87181; 87186; 99284

== ENCOUNTER 2021-01-01 02:09 | Day surgery (SDC) | payer MEDICARE, BC, SELFPAY ==
--- NOTE | 2020-12-30 11:17 | PC.NURSE ---
Report to the Outpatient Waiting Room, entrance under the green pavilion located off [facility], at time _1000 on date __01/01/21 . OR Time: _1200 . - You and your visitor will be asked a series of questions to screen for COVID 19 for your protection. - A mask is required within the hospital. - Only one visitor is allowed at this time. Patient visitors will be guided where to wait when not with patient. Preoperative COVID Testing Requirements: No COVID Test needed if: (proof is required; if not received patient will have Rapid Test prior to entry) - Patient has received COVID Vaccine at least 14 days prior to procedure date or - Patient has positive COVID test result within last 90 days of surgery date. COVID Test needed if above criteria is not met If not COVID vaccinated a COVID test must be conducted within 72 hours of surgery and patient is asked to isolate self from time of testing until procedure. You will go to the [facility] for your COVID testing. The [facility] is located at the corner of [address] [facility]. You will only be called if COVID results are positive and your surgeon may reschedule your elective surgery date. Patients may have clear liquids (water, carbonated beverages, clear teas, apple juice) until 3 hours prior to surgery with a maximum of 20 ounces. - No food from midnight until time of surgery - Infants may have breast milk until 4 hours before surgery, infant formula 6 hours prior to surgery. - Children will be allowed to drink immediately following surgery. If applicable, please bring a bottle or sippy cup to assist with drinking. Juice, water, soda, and popsicles are readily available. For infants on formula, please bring formula the day of surgery. Pacifiers are allowed. Take the following medications with a SIP of water the morning of surgery: ___CIPRO,PAIN PILL IF NEEDED Medications to discontinue per physician ___ALL VITAMINS AND SUPPLEMENTS 3 DAYS PRE OP Date to take last dose__12/28/20 Please no make-up, nail bulgarian, hairspray, perfume, deodorant, or body powder the day of surgery. No jewelry (including any body piercings) or valuables the day of surgery, leave them at home. Please take a shower or bath the night before, or the morning of, surgery with an antibacterial soap. Wear comfortable, loose fitting clothing. Children are encouraged to wear pajamas. - Jewelry must be removed prior to entering the operating room. Rings and piercings that are not removed may be cut off. - The hospital will not accept responsibility for valuables. - Please leave all valuables, including medications, at home the day of surgery. If you are going home after surgery, a licensed maintenance truck driver must drive you home. - NO public transportation without another adult. - We recommend that an adult stay with you for 24 hours following discharge. - We also recommend that you do not drive, make important decision, drink alcoholic beverages, or take any drugs that were not prescribed by your health care provider for at least 24 hours after your discharge time. For Pediatric surgeries, we recommend two adults accompany the child home (only one inside the building at this time). Follow any additional instructions given to you from your surgeon. Telephone instructions given to PATIENTS RICK PEREZ and asked if any additional questions and then verbalized understanding. Patient advised to call surgeon office or pre surgery nurse liaison [phone] if any additional questions.
--- NOTE | 2020-12-30 11:21 | PC.NURSE ---
CHRIS STATES NO CHANGE IN HEALTH HX SINCE LAST INTERVIEW ON 12/28/20
[2020-12-30 11:29] VITALS: BMI 29.8
[2021-01-01] VITALS (7 sets, daily range): BP systolic 121–157; BP diastolic 68–83; PULSE 88–107; RESP 16–20; TEMP 36.1–36.5; O2SAT 96–100; BMI 29.7
--- NOTE | ~2021-01-01 | XR_ITS ---
EXAMINATION: XR abdomen/kub 1V DATE: 01/01/2021 10:18 INDICATION: Kidney stone. TECHNIQUE: A supine view of the abdomen on 2 radiographs was obtained. COMPARISON: Abdomen radiographs 12/24/2020, CT abdomen and pelvis 12/28/2020 FINDINGS: There are no dilated loops of bowel. Surgical clips in the right upper quadrant are likely from cholecystectomy. There are 5 mm and 4 mm stones in right kidney. There are 4 visible stones in l eft kidney measuring up to 7 mm. There is a 12 x 6 mm stone in proximal left ureter. There are phlebo liths in left pelvis. IMPRESSION: 1. Stones in the kidneys and proximal left ureter. Reviewed, dictated and finalized at location A. IN[employer] LOUNGE RECEPTIONIST
[2021-01-01] MEDS: LACTATED RINGERS 1,000 ML 30 ML IV CONT (11:00)
--- NOTE | 2021-01-01 11:02 | WPDANESEPPF ---
Anes - Initial Pre Proc Eval Procedure: Operation Date: 01/01/21 12:00 Proposed Procedures p Left Extracorporeal Shock Wave Lithotripsy, - Gerard Lombardi MD s Possible Cystoscopy, Possible Left Ureteral Stent Placement - Gerard Lombardi MD Date/Time: 01/01/21 11:02 Surgeon: Gerard Lombardi MD Pre Op Diagnosis: left ureteral and renal stones Patient Data Age: 80 Gender: M Height: 1.83 m Weight: 99.8 kg Allergies Allergy/AdvReac Type Severity Reaction Status Date / Time No Known Allergies Allergy Verified 12/30/20 11:06 Home Medications Medication Instructions Recorded Confirmed Type Stelara 90 mg SUBCUT USEASDIRECTD 09/30/20 12/30/20 History allopurinol 300 mg PO DAILY 09/30/20 12/30/20 History amlodipine 10 mg PO HS 09/30/20 12/30/20 History atorvastatin 40 mg PO HS 09/30/20 12/30/20 History calcium carbonate 600 mg PO BID 09/30/20 12/30/20 History ferrous sulfate 325 mg PO DAILY 09/30/20 12/30/20 History hydrocodone-acetaminophen 1 tablet PO Q4-6H PRN 09/30/20 12/30/20 History irbesartan 150 mg PO QAM 09/30/20 01/01/21 History magnesium 200 mg PO DAILY 09/30/20 12/30/20 History multivitamin 1 tablet PO DAILY 09/30/20 12/30/20 History omega-3 fatty acids-vitamin E 1 cap PO BID 09/30/20 12/30/20 History selenium 200 mcg PO DAILY 09/30/20 12/30/20 History vitamin B complex 1 cap PO DAILY 09/30/20 12/30/20 History ciprofloxacin HCl [Cipro] 500 mg PO Q12H #14 tablet 12/28/20 01/01/21 Rx Laboratory Tests 01/01/21 10:47 PT Pending INR Pending APTT Pending Patient hx anesthesia problems: none Family hx anesthesia problems: none Results Review: All pre-operative results and documents have been reviewed as part of the pre-operative evaluation. [facility] Past Medical History Medical History HTN (hypertension) Hyperlipidemia Obesity BOSSMAN (obstructive sleep apnea) Surgical History Surgical History H/O colonoscopy H/O lithotripsy Social History Social History Smoking status: Former smoker Tobacco type: cigars Smoking end date: 08/13/84 Additional smoking assessment comments: CIGARS 3 DAY X 10 YRS Alcohol intake: current Drinks per week: 7 Substance use: never Living arrangements: with family Additional living arrangements comments: Spiritual care concerns: No Anes - Eval Final PreProcedure Day of Procedure 01/01/21 11:02 Patient weight: overweight Heart: regular rate and rhythm Lungs: clear to auscultation Airway: Mallampati scale Neurological: alert and oriented Last oral intake: >/= 8 hours ASA classification: III Emergent: no Anesthetic plan: proceed Anesthesia type and monitoring: general LMA and standard monitoring Results Review: All pre-operative results and documents have been reviewed as part of the pre-operative evaluation. Informed Consent: The patient's anesthetic plan and its attendant risks and benefits were discussed with the patient/family/POA. Questions were solicited and answers provided to the satisfaction of the patient/family/POA.
--- NOTE | 2021-01-01 11:23 | WPDHPUPDATE1 ---
History and Physical Update Update Date/Time: 01/01/21 11:23 Pt. in ER recently with infected urine. Today, will plan cysto/left stent placement without ESWL or endoscopic stone manipulation. History and Physical has been reviewed, including an updated exam of the patient. There are NO changes in the patient's condition. Risks, benefits, and alternatives have been discussed and questions answered. Patient agrees to proceed with procedure.
--- NOTE | 2021-01-01 12:39 | W.PM.PROC2 ---
Procedure Note - Detailed Date of Procedure 01/01/21 Pre-op Diagnosis Left ureteral and renal stones Post-op Diagnosis same Procedure Performed Cystoscopy, left retrograde pyelography and left ureteral stent placement Surgeon Gerard Lombardi MD Anesthesia general Description of Procedure The patient was brought to the operative suite where he was prepped and draped in a routine sterile fashion while in the dorsal lithotomy position. A 16F flexible cystoscope was placed in her bladder and the bladder was circumferentially inspected. There were no urethral strictures. The prostatic urethral estimated length was 2.0cm. There was mild obstruction of the prostatic urethra with a small median lobe. The bladder mucosa was without hyperemia. There was no intravesical foreign body or neoplasm. There was a single orthotopic ureteral orifice bilaterally. using an angiographic catheter I obtained a left retrograde pyelogram to ensure proper positioning of the ureteral stent. I advanced .035 glidewire into the left renal pelvis under fluoroscopy. A 4.8F variable length ureteral stent was positioned with the proximal coil in the renal pelvis and the distal coil in the bladder. Scopes and wires were removed after emptying the patient's bladder. Estimated Blood Loss 0 Urine Output 100 Drains Yes Packing No Pathology none sent Complications No immediate complications Condition stable Disposition PACU
--- NOTE | 2021-01-01 13:59 | SUR.PHASEII ---
PT STATED A LITTLE BLOODY ON HIS LAST URINATION, 1344, HE UNDERSTOOD THIS IS EXPECTED AND DISCHARGED HOME WITH , CHRIS.
== END 2021-01-01 14:00 | disposition home or self-care (01) ==
PROVIDERS: PCP Internal Medicine; Visit Provider Urology
PROC: (CPT 50590; principal; 2021-01-01 12:00)
DX: N20.2 Calculus of kidney with calculus of ureter (principal); Z79.51 Long term (current) use of inhaled steroids; I10 Essential (primary) hypertension; E78.5 Hyperlipidemia, unspecified; G47.33 Obstructive sleep apnea (adult) (pediatric); F51.9 Sleep disorder not due to a substance or known physiological condition, unspecified; Z87.891 Personal history of nicotine dependence
CPT/HCPCS: 52332; 36415; 74018; A9270; C1769; C1887; C2617; J1100; J2405; J2704; J3010; J7120; Q9966

== ENCOUNTER 2021-01-12 13:40 | Outpatient (CLI) | payer MEDICARE, BC, SELFPAY ==
[2021-01-12 14:11] LABS: INR 0.9; Partial Thromboplastin Time 26.9 SECONDS (22.3-36.8); Prothrombin Time 12.3 Seconds (11.1-14.7)
== END 2021-01-12 13:41 | disposition home or self-care (01) ==
LOC: ANHSURGERY 13:43
PROVIDERS: PCP Internal Medicine; Visit Provider Urology
DX: Z01.812 Encounter for preprocedural laboratory examination (principal); N20.1 Calculus of ureter; Z51.81 Encounter for therapeutic drug level monitoring; Z79.899 Other long term (current) drug therapy
CPT/HCPCS: 36415; 85610; 85730; 87086

== ENCOUNTER 2021-01-15 00:59 | Day surgery (SDC) | payer MEDICARE, BC, SELFPAY ==
[2021-01-12 13:21] VITALS: BMI 29.2
--- NOTE | 2021-01-12 13:38 | PC.NURSE ---
Report to the Outpatient Waiting Room, entrance under the green pavilion located off [facility], at time _10:00AM on date 01/15/21 . OR Time: _12:00PM . - You and your visitor will be asked a series of questions to screen for COVID 19 for your protection. - A mask is required within the hospital. - Only one visitor is allowed at this time. Patient visitors will be guided where to wait when not with patient. Preoperative COVID Testing Requirements: No COVID Test needed if: (proof is required; if not received patient will have Rapid Test prior to entry) - Patient has received COVID Vaccine at least 14 days prior to procedure date or - Patient has positive COVID test result within last 90 days of surgery date. COVID Test needed if above criteria is not met If not COVID vaccinated a COVID test must be conducted within 72 hours of surgery and patient is asked to isolate self from time of testing until procedure. You will go to the [facility] for your COVID testing. The [facility] is located at the corner of [address] [facility]. You will only be called if COVID results are positive and your surgeon may reschedule your elective surgery date. Patients may have clear liquids (water, carbonated beverages, clear teas, apple juice) until 3 hours prior to surgery with a maximum of 20 ounces. - No food from midnight until time of surgery - Infants may have breast milk until 4 hours before surgery, formula 6 hours prior to surgery. - Children will be allowed to drink immediately following surgery. If applicable, please bring a bottle or sippy cup to assist with drinking. Juice, water, soda, and popsicles are readily available. For infants on formula, please bring formula the day of surgery. Pacifiers are allowed. Take the following medications with a SIP of water the morning of surgery: ___NONE Medications to discontinue per physician ALL VITAMINS/SUPPLEMENTS Date to take last dose____01/12/21 Please no make-up, nail burkinan, hairspray, perfume, deodorant, or body powder the day of surgery. No jewelry (including any body piercings) or valuables the day of surgery, leave them at home. Please take a shower or bath the night before, or the morning of, surgery with an antibacterial soap. Wear comfortable, loose fitting clothing. Children are encouraged to wear pajamas. - Jewelry must be removed prior to entering the operating room. Rings and piercings that are not removed may be cut off. - The hospital will not accept responsibility for valuables. - Please leave all valuables, including medications, at home the day of surgery. If you are going home after surgery, a licensed taxi cab driver must drive you home. - NO public transportation without another adult. - We recommend that an adult stay with you for 24 hours following discharge. - We also recommend that you do not drive, make important decision, drink alcoholic beverages, or take any drugs that were not prescribed by your health care provider for at least 24 hours after your discharge time. For Pediatric surgeries, we recommend two adults accompany the child home (only one inside the building at this time). Follow any additional instructions given to you from your surgeon. Telephone instructions given to ___PATIENT and asked if any additional questions and then verbalized understanding. Patient advised to call surgeon office or pre surgery nurse liaison [phone] if any additional questions.
--- NOTE | 2021-01-12 15:58 | PM.HPGS ---
History of Present Illness History of Present Illness Consent: Risks, benefits, and alternatives have been discussed and questions answered. Patient agrees to proceed with procedure. Chief complaint: left ureteral and renal stones Narrative: Karen Murphy is a 80 year old male Who is status post left renal ESWL for large stones in his left kidney several weeks ago. Was partial fragmentation in passage. He was set up for a 2nd lithotripsy but developed a UTI prompting simple placement of ureteral stent. He now presents for definitive follow-up lithotripsy. He is aware of the risk of this procedure as previously outlined. Review of Systems Cardiovascular: Cardiovascular: Denies chest pain, Denies lightheadedness, Denies palpitations and Denies dyspnea Respiratory: Respiratory: Denies dyspnea Gastrointestinal: Gastrointestinal: Denies diarrhea, Denies nausea and Denies vomiting Genitourinary: Genitourinary: Denies hematuria and Denies dysuria Endocrine: Endocrine: Denies palpitations [facility] Past Medical History Medical History HTN (hypertension) Hyperlipidemia Obesity BOSSMAN (obstructive sleep apnea) Surgical History Surgical History H/O colonoscopy H/O lithotripsy Social History Social History Smoking status: Former smoker Tobacco type: cigars Smoking end date: 08/14/83 Additional smoking assessment comments: CIGARS 3 DAY X 10 YRS Alcohol intake: current Drinks per week: 5 Substance use: never Additional living arrangements comments: Spiritual care concerns: No Meds Home Medications and Allergies Home Medications Medication Instructions Recorded Confirmed Type Stelara 90 mg SUBCUT USEASDIRECTD 09/30/20 01/12/21 History allopurinol 300 mg PO DAILY 09/30/20 01/12/21 History amlodipine 10 mg PO HS 09/30/20 01/12/21 History atorvastatin 40 mg PO HS 09/30/20 01/12/21 History calcium carbonate 600 mg PO BID 09/30/20 01/12/21 History ferrous sulfate 325 mg PO DAILY 09/30/20 01/12/21 History irbesartan 150 mg PO QAM 09/30/20 01/12/21 History magnesium 200 mg PO DAILY 09/30/20 01/12/21 History multivitamin 1 tablet PO DAILY 09/30/20 01/12/21 History omega-3 fatty acids-vitamin E 1 cap PO BID 09/30/20 01/12/21 History selenium 200 mcg PO DAILY 09/30/20 01/12/21 History vitamin B complex 1 cap PO DAILY 09/30/20 01/12/21 History hydrocodone-acetaminophen 1 - 2 tablet PO Q6H PRN #20 tablet 01/01/21 01/12/21 Rx Allergies Allergy/AdvReac Type Severity Reaction Status Date / Time No Known Allergies Allergy Verified 01/12/21 13:20 Exam Const: General: no acute distress Resp: Effort & Inspection: normal respiratory effort GI: Inspection: non-distended GI Palp: No abdominal tenderness and No Guarding due to palpation present (GI) Auscultation: normal bowel sounds Assessment and Plan Assessment and plan (1) Left ureteral stone: Code(s): N20.1 - Calculus of ureter Status: Acute Assessment and Plan: Left ESWL
[2021-01-15] VITALS (7 sets, daily range): BP systolic 123–159; BP diastolic 69–82; PULSE 72–94; RESP 11–16; TEMP 36.9; O2SAT 96–99
--- NOTE | ~2021-01-15 | XR_ITS ---
EXAMINATION: XR abdomen/kub 1V EXAM DATE: 01/15/2021 10:11 INDICATION: ESWL TECHNIQUE: Frontal projection(s) of the abdomen for interpretation. Comparison is made to prior exami nation from 01/01/2021. FINDINGS: Left double-J ureteral stent. Approximately 1 cm stone projecting along its course probabl y at the ureteropelvic junction. Additional bilateral nephrolithiasis indicated. Nonobstructive bowel gas pattern. There are cholecystectomy clips. IMPRESSION: Left UPJ stone. Bilateral nephrolithiasis. Stent in position. Reviewed, dictated and finalized at location B. TH CONSULTANT
--- NOTE | 2021-01-15 06:58 | WPDHPUPDATE1 ---
History and Physical Update Update Date/Time: 01/15/21 06:58 History and Physical has been reviewed, including an updated exam of the patient. There are NO changes in the patient's condition. Risks, benefits, and alternatives have been discussed and questions answered. Patient agrees to proceed with procedure.
[2021-01-15] MEDS: LACTATED RINGERS 1,000 ML 30 ML IV CONT (10:40)
--- NOTE | 2021-01-15 10:59 | WPDANESEPPF ---
Anes - Initial Pre Proc Eval Procedure: Operation Date: 01/15/21 12:00 Proposed Procedures p Left Extracorporeal Shock Wave Lithotripsy, Left Ureteral Stent Exchange - Gerard Lombardi MD Date/Time: 01/15/21 10:59 Surgeon: Gerard Lombardi MD Pre Op Diagnosis: left ureteral and renal stones Patient Data Age: 80 Gender: M Height: 1.83 m Weight: 100.3 kg Last Vital Signs Temp 36.9 C 01/15/21 10:44 Pulse 94 01/15/21 10:44 Resp 16 01/15/21 10:44 BP 150/81 H 01/15/21 10:44 Pulse Ox 98 01/15/21 10:44 Allergies Allergy/AdvReac Type Severity Reaction Status Date / Time No Known Allergies Allergy Verified 01/15/21 10:21 Home Medications Medication Instructions Recorded Confirmed Type Stelara 90 mg SUBCUT USEASDIRECTD 09/30/20 01/12/21 History allopurinol 300 mg PO DAILY 09/30/20 01/12/21 History amlodipine 10 mg PO HS 09/30/20 01/12/21 History atorvastatin 40 mg PO HS 09/30/20 01/12/21 History calcium carbonate 600 mg PO BID 09/30/20 01/12/21 History ferrous sulfate 325 mg PO DAILY 09/30/20 01/12/21 History irbesartan 150 mg PO QAM 09/30/20 01/12/21 History magnesium 200 mg PO DAILY 09/30/20 01/12/21 History multivitamin 1 tablet PO DAILY 09/30/20 01/12/21 History omega-3 fatty acids-vitamin E 1 cap PO BID 09/30/20 01/12/21 History selenium 200 mcg PO DAILY 09/30/20 01/12/21 History vitamin B complex 1 cap PO DAILY 09/30/20 01/12/21 History hydrocodone-acetaminophen 1 - 2 tablet PO Q6H PRN #20 tablet 01/01/21 01/12/21 Rx Patient hx anesthesia problems: none Family hx anesthesia problems: none Results Review: All pre-operative results and documents have been reviewed as part of the pre-operative evaluation. [facility], [facility] Past Medical History Medical History (Updated 01/14/21 @ 13:10 by Renato Mccollum DO) Crohn's disease HTN (hypertension) Hyperlipidemia Obesity BOSSMAN (obstructive sleep apnea) Surgical History Surgical History H/O colonoscopy H/O lithotripsy Social History Social History Smoking status: Former smoker Tobacco type: cigars Smoking end date: 08/14/83 Additional smoking assessment comments: CIGARS 3 DAY X 10 YRS Alcohol intake: current Drinks per week: 5 Substance use: never Living arrangements: with family Additional living arrangements comments: Spiritual care concerns: No Anes - Eval Final PreProcedure Day of Procedure 01/15/21 10:59 Patient weight: obese Heart: regular rate and rhythm Lungs: clear to auscultation and normal air movement Airway: Mallampati scale class II Neurological: alert and oriented Last oral intake: >/= 8 hours ASA classification: III Emergent: no Anesthetic plan: proceed Anesthesia type and monitoring: general LMA and standard monitoring Results Review: All pre-operative results and documents have been reviewed as part of the pre-operative evaluation. Informed Consent: The patient's anesthetic plan and its attendant risks and benefits were discussed with the patient/family/POA. Questions were solicited and answers provided to the satisfaction of the patient/family/POA.
[2021-01-15] MEDS: ceFAZolin 2 GM/D5W 50 ML 2 GM/50 ML BAG IVPB (11:39)
--- NOTE | 2021-01-15 11:46 | SUR.OPER ---
plastic tape over wedding ring finger to hand, tape over ears bilateral hearing aids left in bilateral waiver signed in preop.
--- NOTE | 2021-01-15 12:05 | W.PM.PROC2 ---
Procedure Note - Detailed Date of Procedure 01/15/21 Pre-op Diagnosis Left ureteral and renal stones Post-op Diagnosis same Procedure Performed Left ESWL Surgeon Gerard Lombardi MD Anesthesia general Description of Procedure The patient was brought to the operative suite where he was placed in the supine position on the Dornier lithotripsy table. The focal point of the lithotripter was placed at a 1cm left proximal ureteral calculus. A total of 300 shocks were delivered at a power setting of 6. There appeared to be good fragmentation of the stone. Because of the proximity of this stone to his kidney, I did not treat the renal stone. The patient tolerated the procedure well and was taken to the recovery room in good condition. Drains No Packing No Pathology none sent Complications No immediate complications Condition stable Disposition PACU
== END 2021-01-15 14:01 | disposition home or self-care (01) ==
PROVIDERS: PCP Internal Medicine; Visit Provider Urology
PROC: (CPT 50590; principal; 2021-01-15 12:00)
DX: N20.2 Calculus of kidney with calculus of ureter (principal); I10 Essential (primary) hypertension; E78.5 Hyperlipidemia, unspecified; G47.33 Obstructive sleep apnea (adult) (pediatric); E66.9 Obesity, unspecified; Z68.30 Body mass index [BMI] 30.0-30.9, adult; Z87.891 Personal history of nicotine dependence
CPT/HCPCS: 50590; 74018; J0690; J1100; J2405; J2704; J3010; J7120

== ENCOUNTER 2021-01-28 10:41 | Outpatient (CLI) | payer MEDICARE, BC, SELFPAY ==
--- NOTE | ~2021-01-28 | XR_ITS ---
EXAMINATION: XR abdomen/kub 1V INDICATION: Calcium kidney stones TECHNIQUE: Supine views of the abdomen were obtained on 2 radiographs. COMPARISON: 01/15/2021 FINDINGS: A left internal ureteral stent is in expected position. There is a persistent 12 mm stone a djacent to the proximal stent. No additional stones are identified adjacent to the stent. There are a t least six persistent stones throughout the left kidney which measure two 9 mm. A small cluster of s tones measuring up to 3 mm is seen in the lower pole of the right kidney. The bowel gas pattern is no rmal. There is moderate osteoarthritis of the hips. Surgical clips in the right upper quadrant are kaylie sanchez from prior cholecystectomy. IMPRESSION: 1. Left internal ureteral stent in expected position with unchanged stone adjacent to the proximal st ent. 2. Bilateral nephrolithiasis. Reviewed, dictated and finalized at location A. EASTERN ARCHAEOLOGY LECTURER IMPRESSION: 1. Left internal ureteral stent in expected position with unchanged stone adjac ent to the proximal stent. 2. Bilateral nephrolithiasis.
== END 2021-01-28 10:42 | disposition home or self-care (01) ==
PROVIDERS: PCP Internal Medicine; Visit Provider Urology
DX: N20.0 Calculus of kidney (principal)
CPT/HCPCS: 74018

== ENCOUNTER 2021-02-08 13:19 | Outpatient (CLI) | payer MEDICARE, BC, SELFPAY ==
--- NOTE | ~2021-02-08 | XR_ITS ---
XR abdomen/kub 1V DATE: 02/08/2021 13:38 INDICATION: Calcium kidney stone. Recent lithotripsy. TECHNIQUE: AP projection, 2 views COMPARISON: 01/28/2021 KUB FINDINGS: Stable bilateral calcified nephrolithiasis. Left internal urinary stent is in expected position, unchanged since 01/28/2021. No change in position of 12 mm calcified proximal left ureteral stone L3 level since 01/28/2021. Status post cholecystectomy. The psoas shadows are intact. No visceromegaly is evident. No evidence of bowel obstruction. Benign lucent lesion of the subtrochanteric area of the left femur. IMPRESSION: Left internal urinary stent; no change in position of the 12 mm calcified proximal left u reteral calculus since 01/28/2021 Bilateral nephrolithiasis Reviewed, dictated and finalized at Location A. Reviewed, dictated and finalized at location A. L SALVAGER IMPRESSION: Left internal urinary stent; no change in position of the 12 mm carolann cified proximal left ureteral calculus since 01/28/2021 Bilateral nephrolithiasis
== END 2021-02-08 13:20 | disposition home or self-care (01) ==
LOC: ANHIMG 13:26
PROVIDERS: PCP Internal Medicine; Visit Provider Urology
DX: N20.0 Calculus of kidney (principal)
CPT/HCPCS: 74018

== ENCOUNTER 2021-02-19 01:23 | Day surgery (SDC) | payer MEDICARE, BC, SELFPAY ==
[2021-02-17 10:55] VITALS: BMI 29.9
--- NOTE | 2021-02-17 11:08 | PC.NURSE ---
Report to the Outpatient Waiting Room, entrance under the green pavilion located off [facility], at time __6:15AM on date ___02/19/21____. OR Time: __8:15 AM . - You and your visitor will be asked a series of questions to screen for COVID 19 for your protection. - A mask is required within the hospital. - Only one visitor is allowed at this time. Patient visitors will be guided where to wait when not with patient. Preoperative COVID Testing Requirements: No COVID Test needed if: (proof is required; if not received patient will have Rapid Test prior to entry) - Patient has received COVID Vaccine at least 14 days prior to procedure date or - Patient has positive COVID test result within last 90 days of surgery date. COVID Test needed if above criteria is not met If not COVID vaccinated a COVID test must be conducted within 72 hours of surgery and patient is asked to isolate self from time of testing until procedure. You will go to the [facility] for your COVID testing. The [facility] is located at the corner of [address] from [facility]. You will only be called if COVID results are positive and your surgeon may reschedule your elective surgery date. Patients may have clear liquids (water, carbonated beverages, clear teas, apple juice) until 3 hours prior to surgery with a maximum of 20 ounces. - No food from midnight until time of surgery - Infants may have breast milk until 4 hours before surgery, infant formula 6 hours prior to surgery. - Children will be allowed to drink immediately following surgery. If applicable, please bring a bottle or sippy cup to assist with drinking. Juice, water, soda, and popsicles are readily available. For infants on formula, please bring formula the day of surgery. Pacifiers are allowed. Take the following medications with a SIP of water the morning of surgery: HYDROCODONE NEEDED Medications to discontinue per physician ALL VITAMINS/SUPPLEMENTS 3 DAYS PRE-OP Date to take last dose____02/17/20 Please no make-up, nail spanish, hairspray, perfume, deodorant, or body powder the day of surgery. No jewelry (including any body piercings) or valuables the day of surgery, leave them at home. Please take a shower or bath the night before, or the morning of, surgery with an antibacterial soap. Wear comfortable, loose fitting clothing. Children are encouraged to wear pajamas. - Jewelry must be removed prior to entering the operating room. Rings and piercings that are not removed may be cut off. - The hospital will not accept responsibility for valuables. - Please leave all valuables, including medications, at home the day of surgery. If you are going home after surgery, a licensed intermodal owner operator truck driver must drive you home. - NO public transportation without another adult. - We recommend that an adult stay with you for 24 hours following discharge. - We also recommend that you do not drive, make important decision, drink alcoholic beverages, or take any drugs that were not prescribed by your health care provider for at least 24 hours after your discharge time. For Pediatric surgeries, we recommend two adults accompany the child home (only one inside the building at this time). Follow any additional instructions given to you from your surgeon. Telephone instructions given to __PATIENT and asked if any additional questions and then verbalized understanding. Patient advised to call surgeon office or pre surgery nurse liaison [phone] if any additional questions.
--- NOTE | ~2021-02-19 | XR_ITS ---
EXAMINATION: XR retrograde pyelo w/stent LT DATE: 02/19/2021 11:12 INDICATION: Renal stone extraction and left ureteral stenting. TECHNIQUE: 31 fluoroscopic images of the abdomen and pelvis were obtained during procedure performed by Dr. Lombardi. Radiologist was not present for the imaging or procedure. The amount of fluoroscopy ti me used during this procedure was 1.2 minutes. COMPARISON: None. FINDINGS: Cluster small stones at the lower pole of the left kidney. The stone previously seen at the proximal left ureter is not visualized on the provided images. There is mild hydronephrosis at the left kidney . Final image demonstrates the proximal loop of a left internal ureteral stent coiled in the dilated infundibulum to the calyces at the upper pole of the left kidney. IMPRESSION: 1. Fluoroscopy utilized during urologic procedure including placement of a left internal ureteral dary nt as detailed above. See procedure note for further detail. Reviewed, dictated and finalized at location B. MATIC SPINNING LATHE OPERATOR IMPRESSION: 1. Fluoroscopy utilized during urologic procedure including placement of a left internal ureteral stent as detailed above. See procedure note for further deta il.
--- NOTE | 2021-02-19 06:48 | WPDHPUPDATE1 ---
History and Physical Update Update Date/Time: 02/19/21 06:48 History and Physical has been reviewed, including an updated exam of the patient. There are NO changes in the patient's condition. Risks, benefits, and alternatives have been discussed and questions answered. Patient agrees to proceed with procedure.
[2021-02-19 08:26] VITALS: BP 142/83; PULSE 99; RESP 16; TEMP 37.1; O2SAT 98
[2021-02-19] MEDS: LACTATED RINGERS 1,000 ML 30 ML IV CONT (09:01)
--- NOTE | 2021-02-19 09:22 | WPDANESEPPF ---
Anes - Initial Pre Proc Eval Procedure: Operation Date: 02/19/21 10:15 Proposed Procedures p Left Ureteroscopy, Stone Extraction, Possible Stent Placement - Gerard Lombardi MD s Holmium Laser Procedure - Gerard Lombardi MD Date/Time: 02/19/21 09:22 Surgeon: Gerard Lombardi MD Pre Op Diagnosis: kidney stones Patient Data Age: 80 Gender: M Height: 1.83 m Weight: 102.8 kg Last Vital Signs Temp 37.1 C 02/19/21 08:26 Pulse 99 02/19/21 08:26 Resp 16 02/19/21 08:26 BP 142/83 H 02/19/21 08:26 Pulse Ox 98 02/19/21 08:26 Allergies Allergy/AdvReac Type Severity Reaction Status Date / Time No Known Allergies Allergy Verified 02/19/21 08:41 Home Medications Medication Instructions Recorded Confirmed Type Stelara 90 mg SUBCUT USEASDIRECTD 09/30/20 02/19/21 History allopurinol 300 mg PO DAILY 09/30/20 02/19/21 History amlodipine 10 mg PO HS 09/30/20 02/19/21 History atorvastatin 40 mg PO HS 09/30/20 02/19/21 History calcium carbonate 600 mg PO BID 09/30/20 02/19/21 History ferrous sulfate 325 mg PO DAILY 09/30/20 02/19/21 History irbesartan 150 mg PO QAM 09/30/20 02/19/21 History magnesium 200 mg PO DAILY 09/30/20 02/19/21 History multivitamin 1 tablet PO DAILY 09/30/20 02/19/21 History omega-3 fatty acids-vitamin E 1 cap PO BID 09/30/20 02/19/21 History selenium 200 mcg PO DAILY 09/30/20 02/19/21 History vitamin B complex 1 cap PO DAILY 09/30/20 02/19/21 History hydrocodone-acetaminophen 1 - 2 tablet PO Q6H PRN #20 tablet 01/01/21 02/19/21 Rx Patient hx anesthesia problems: none Family hx anesthesia problems: none Results Review: All pre-operative results and documents have been reviewed as part of the pre-operative evaluation. [facility] Past Medical History Medical History Crohn's disease HTN (hypertension) Hyperlipidemia Obesity BOSSMAN (obstructive sleep apnea) Surgical History Surgical History H/O colonoscopy H/O lithotripsy Social History Social History Smoking status: Former smoker Tobacco type: cigars Smoking end date: 08/14/83 Additional smoking assessment comments: CIGARS 3 DAY X 10 YRS Alcohol intake: current Drinks per week: 5 Substance use: never Living arrangements: with family Additional living arrangements comments: Spiritual care concerns: No Anes - Eval Final PreProcedure Day of Procedure 02/19/21 09:22 Patient weight: obese Heart: regular rate and rhythm Lungs: clear to auscultation Airway: Mallampati scale class II Neurological: alert and oriented Last oral intake: >/= 8 hours ASA classification: III Emergent: no Anesthetic plan: proceed Anesthesia type and monitoring: general LMA and standard monitoring Results Review: All pre-operative results and documents have been reviewed as part of the pre-operative evaluation. Informed Consent: The patient's anesthetic plan and its attendant risks and benefits were discussed with the patient/family/POA. Questions were solicited and answers provided to the satisfaction of the patient/family/POA.
[2021-02-19] MEDS: ceFAZolin 2 GM/D5W 50 ML 2 GM/50 ML BAG IVPB (10:23)
--- NOTE | 2021-02-19 10:40 | SUR.OPER ---
laser safety precautions initiated
[2021-02-19] MEDS: LIDOCAINE HCL 2% GEL UROJET 10 ML PKG MUCOUS MEM (10:42)
[2021-02-19 11:15] VITALS: BP 118/68; PULSE 76; RESP 14; TEMP 36.1; O2SAT 100
--- NOTE | 2021-02-19 11:17 | W.PM.PROC2 ---
Procedure Note - Detailed Date of Procedure 02/19/21 Pre-op Diagnosis Left ureteral stones Post-op Diagnosis same Procedure Performed About cystoscopy, left ureteral stent removal, left ureteroscopy with laser lithotripsy and stone extraction, left retrograde pyelogram and ureteral stent replacement Surgeon Gerard Lombardi MD Anesthesia general Description of Procedure patient brought to the operative suite where he has prepped draped in routine sterile fashion while in dorsal lithotomy position after the uneventful induction of a general anesthetic. He is given 2% xylocaine jelly intraurethrally. Cystoscopy is undertaken with a 19 F rigid cystoscope. The indwelling ureteral stent is brought to the external urethral meatus. A 0.035 in glidewire was advanced in the left renal pelvis. The distal ureter was dilated 1st with an 8 F/10 F dilator and then a 12/14 F access sheath was placed. Ureteroscopy undertaken with a 7.5 F flexible ureteral scope. The large 1 cm proximal ureteral stone is identified. It is not been fractured by prior ESWL. Using a 273 micron holmium laser fiber I fractured the stone a tiny pieces using a dusting technique. All sizable pieces were extracted with a 1.9 F disposable escape stone basket. Retrograde pyelogram was obtained to ensure appropriate placement of 4.58 F variable length ureteral stent with the proximal coil in renal pelvis and distal coil in the bladder. Scopes and wires removed the patient was taken recovery room good condition. Estimated Blood Loss 0 Drains Yes Packing No Pathology yes Complications No immediate complications Condition stable Disposition PACU
[2021-02-19 11:30] VITALS: BP 142/86; PULSE 80; RESP 17; TEMP 36.1; O2SAT 97
[2021-02-19 11:45] VITALS: BP 149/77; PULSE 90; RESP 18; O2SAT 93
[2021-02-19 12:15] VITALS: BP 159/80; PULSE 106; RESP 20
== END 2021-02-19 12:50 | disposition home or self-care (01) ==
PROVIDERS: PCP Internal Medicine; Visit Provider Urology
PROC: (CPT 52352; principal; 2021-02-19 10:15)
PROC: (CPT 52356; 2021-02-19 10:15)
DX: N20.1 Calculus of ureter (principal); I10 Essential (primary) hypertension; E78.5 Hyperlipidemia, unspecified; G47.33 Obstructive sleep apnea (adult) (pediatric); K50.90 Crohn's disease, unspecified, without complications; E66.9 Obesity, unspecified; Z68.30 Body mass index [BMI] 30.0-30.9, adult; Z87.891 Personal history of nicotine dependence
CPT/HCPCS: 52356; 74420; 82365; 88300; A9270; C1769; C1894; C2617; J0690; J1100; J2405; J2704; J7120; Q9966

== ENCOUNTER 2021-02-23 10:16 | Outpatient (CLI) | payer MEDICARE, BC, SELFPAY | END 2021-02-23 10:17 | disposition home or self-care (01) | LOC: ANHLAB 10:20 | PROVIDERS: PCP Internal Medicine; Visit Provider Urology | DX: N20.0 Calculus of kidney (principal) | CPT/HCPCS: 87324 ==

== ENCOUNTER 2021-03-16 15:30 | Outpatient (CLI) | payer MEDICARE, BC, SELFPAY ==
--- NOTE | ~2021-03-16 | XR_ITS ---
EXAMINATION: XR abdomen/kub 1V EXAM DATE: 03/16/2021 15:53 INDICATION: LEFT URETERAL STONE . TECHNIQUE: Frontal projection of the upper abdomen, frontal projection lower abdomen/pelvis for inter pretation. Comparison is made to prior examination from 02/08/2021. Correlation was made with CT abdo men pelvis 03/16/2021. FINDINGS: Small bilateral nephrolithiasis. Left distal ureteral stone was suspected on CT obtained s rasheeda date. This could project over the left aspect of the sacrum, region indicated, but there are also vascular calcifications. Previously seen left double-J ureteral stent has been removed. There is mo derate bilateral sacroiliac osteoarthritis and bilateral hip osteoarthritis. There are cholecystectom y clips. IMPRESSION: 1. Region of left distal ureteral stone indicated. 2. Bilateral nephrolithiasis. Reviewed, dictated and finalized at location G. INE CELL TUBER
--- NOTE | ~2021-03-16 | CT_ITS ---
EXAMINATION: CT abdomen pelvis wo con DATE: 03/16/2021 15:49 INDICATION: Left ureteral stone TECHNIQUE: Computed tomography (CT) of the abdomen and pelvis was performed without intravenous contr ast. Automated exposure control and iterative reconstruction technique were employed. Exam dose: 406 .90 mGy-cm total exam DLP. COMPARISON: 03/16/2021 KUB 12/28/2020 CT abdomen pelvis FINDINGS: Normal heart size. The lung bases are clear. No pericardial or pleural effusion. Status post cholecystectomy. There are bilateral nonobstructive kidney stones, including 3 left renal calculi measuring up to appr oximately 6.3 mm and at least 5 right renal calculi, measuring up to 8.5 mm. There is an approximately 6.4 x 11.6 mm calculus of the distal left ureter with proximal left mild hy droureteronephrosis and some periureteral stranding. There are multiple small stones in the dependent aspect of the urinary bladder. No right ureteral calculus or right-sided hydroureteronephrosis. There is prostate enlargement and calcification. Normal caliber of the abdominal aorta; no evidence of abdominal aortic aneurysm. No intraperitoneal o r retroperitoneal or pelvic mass lesion or adenopathy or ascites. 1.7 cm lower pole right renal probable cyst. There is a 2.1 cm soft tissue mass or hyperdense cyst at the inferior pole of the right kidney with a ttenuation of 38 Hounsfield units; hypernephroma is not excluded. However, this is stable since 2020. Consider renal MRI as clinically appropriate. 1.6 cm left renal upper pole probable cyst. Normal appendix. There is diverticulosis of the sigmoid and to a lesser extent descending colon; no CT evidence of div erticulitis. No bowel obstruction, bowel wall thickening, pneumatosis or intraperitoneal free air. No suspicious osteolytic or osteoblastic lesions are noted. IMPRESSION: Approximately 6.4 x 11.6 mm distal left ureteral calculus with proximal left mild hydrou reteronephrosis and periureteral stranding Bilateral nephrolithiasis Urinary bladder stones Indeterminate 2.1 cm soft tissue mass or proteinaceous or hemorrhagic cyst at the lower pole of the r ight kidney, stable since 09/10/2020. Consider renal MRI as clinically appropriate Bilateral renal cysts Diverticulosis of the left colon; no CT evidence of diverticulitis Status post cholecystectomy Reviewed, dictated and finalized at Location A. Reviewed, dictated and finalized at location B. TIC WELDING OPERATOR IMPRESSION: Approximately 6.4 x 11.6 mm distal left ureteral calculus with pro ximal left mild hydroureteronephrosis and periureteral stranding Bilateral nephrolithiasis Urinary bladder stones Indeterminate 2.1 cm soft tissue mass or proteinaceous or hemorrhagic cyst at t he lower pole of the right kidney, stable since 09/10/2020. Consider renal MRI a s clinically appropriate Bilateral renal cysts Diverticulosis of the left colon; no CT evidence of diverticulitis Status post cholecystectomy
== END 2021-03-16 15:31 | disposition home or self-care (01) ==
LOC: ANHIMG 15:36
PROVIDERS: PCP Internal Medicine; Visit Provider Nurse Practitioner Adult Health
DX: N20.2 Calculus of kidney with calculus of ureter (principal); Z90.49 Acquired absence of other specified parts of digestive tract; N28.1 Cyst of kidney, acquired; K57.30 Diverticulosis of large intestine without perforation or abscess without bleeding; N21.0 Calculus in bladder
CPT/HCPCS: 74018; 74176

== ENCOUNTER 2021-03-19 02:51 | Day surgery (SDC) | payer MEDICARE, BC, SELFPAY ==
--- NOTE | 2021-03-18 09:46 | PC.NURSE ---
Report to the Outpatient Waiting Room, entrance under the green pavilion located off [address], at time __1130 on date _03/19/21 . OR Time: __1329 . - You will be asked a series of questions to screen for COVID 19 for your protection. - A mask is required within the hospital. - No visitors are allowed at this time. Preoperative COVID Testing Requirements: No COVID Test needed if: (proof is required; if not received patient will have Rapid Test prior to entry) - Patient has received COVID Vaccine at least 14 days prior to procedure date or - Patient has positive COVID test result within last 90 days of surgery date. COVID Test needed if above criteria is not met If not COVID vaccinated a COVID test must be conducted within 72 hours of surgery and patient is asked to isolate self from time of testing until procedure. You will go to the [facility] for your COVID testing. The [facility] site is located at the corner of [address] [facility]. You will only be called if COVID results are positive and your surgeon may reschedule your elective surgery date. Patients may have clear liquids (water, carbonated beverages, clear teas, apple juice) until 3 hours prior to surgery with a maximum of 20 ounces. - No food from midnight until time of surgery - Infants may have breast milk until 4 hours before surgery, infant formula 6 hours prior to surgery. - Children will be allowed to drink immediately following surgery. If applicable, please bring a bottle or sippy cup to assist with drinking. Juice, water, soda, and popsicles are readily available. For infants on formula, please bring formula the day of surgery. Pacifiers are allowed. Take the following medications with a SIP of water the morning of surgery: ____NONE Medications to discontinue per physician __ALL VITAMINS AND SUPPLEMENTS NOW Date to take last dose Please no make-up, nail slovenian, hairspray, perfume, deodorant, or body powder the day of surgery. No jewelry (including any body piercings) or valuables the day of surgery, leave them at home. Please take a shower or bath the night before, or the morning of, surgery with an antibacterial soap. Wear comfortable, loose fitting clothing. Children are encouraged to wear pajamas. - Jewelry must be removed prior to entering the operating room. Rings and piercings that are not removed may be cut off. - The hospital will not accept responsibility for valuables. - Please leave all valuables, including medications, at home the day of surgery. If you are going home after surgery, a licensed miniature train driver must drive you home. - NO public transportation without another adult. - We recommend that an adult stay with you for 24 hours following discharge. - We also recommend that you do not drive, make important decision, drink alcoholic beverages, or take any drugs that were not prescribed by your health care provider for at least 24 hours after your discharge time. For Pediatric surgeries, we recommend two adults accompany the child home (only one inside the building at this time). Follow any additional instructions given to you from your surgeon. Telephone instructions given to _PATIENT and asked if any additional questions and then verbalized understanding. Patient advised to call surgeon office or pre surgery nurse liaison [phone] if any additional questions.
--- NOTE | 2021-03-18 09:48 | PC.NURSE ---
PT STATES NO CHANGE IN HEALTH HX FOR LAST INTERVIEW 02/17/21
[2021-03-18 09:50] VITALS: BMI 29.8
--- NOTE | 2021-03-18 15:15 | P.PNAN_ITS ---
Anes - Eval Pre Procedure Procedure: Operation Date: 03/19/21 13:30 Proposed Procedures p Cystoscopy, Left Ureteroscopy, Left Retrograde Pyelogram, Left Stone Extraction, Left Stent Placement, - Angel Howell MD s Possible Holmium Laser Procedure - Angel Howell MD Date/Time: 03/18/21 15:15 Pre Op Diagnosis: left ureteral stone Patient Data Age: 80 Gender: M Height: 1.83 m Weight: 99.8 kg Allergies Allergy/AdvReac Type Severity Reaction Status Date / Time No Known Allergies Allergy Verified 03/18/21 09:38 Home Medications Medication Instructions Recorded Confirmed Type Stelara 90 mg SUBCUT USEASDIRECTD 09/30/20 03/18/21 History allopurinol 300 mg PO DAILY 09/30/20 03/18/21 History amlodipine 10 mg PO HS 09/30/20 03/18/21 History atorvastatin 40 mg PO HS 09/30/20 03/18/21 History calcium carbonate 600 mg PO BID 09/30/20 03/18/21 History ferrous sulfate 325 mg PO DAILY 09/30/20 03/18/21 History irbesartan 150 mg PO QAM 09/30/20 03/18/21 History magnesium 200 mg PO DAILY 09/30/20 03/18/21 History multivitamin 1 tablet PO DAILY 09/30/20 03/18/21 History omega-3 fatty acids-vitamin E 1 cap PO BID 09/30/20 03/18/21 History selenium 200 mcg PO DAILY 09/30/20 03/18/21 History vitamin B complex 1 cap PO DAILY 09/30/20 03/18/21 History cephalexin 500 mg PO Q8H #9 cap 02/19/21 03/18/21 Rx hydrocodone-acetaminophen 1 - 2 tablet PO Q6H PRN #20 tablet 02/19/21 03/18/21 Rx Patient hx anesthesia problems: none Family hx anesthesia problems: none Results Review: All pre-operative results and documents have been reviewed as part of the pre-operative evaluation. [facility] Past Medical History Medical History Crohn's disease HTN (hypertension) Hyperlipidemia Obesity BOSSMAN (obstructive sleep apnea) Surgical History Surgical History H/O colonoscopy H/O lithotripsy Social History Social History Smoking status: Former smoker Tobacco type: cigars Smoking end date: 08/14/83 Additional smoking assessment comments: CIGARS 3 DAY X 10 YRS Alcohol intake: current Drinks per week: 5 Substance use: never Additional living arrangements comments: Gender identity (if verbalized by the patient): Male Sexual Orientation (if Verbalized by the Patient): Straight or Heterosexual Spiritual care concerns: No Exam Day of Procedure 03/18/21 15:15
[2021-03-19] VITALS (8 sets, daily range): BP systolic 139–150; BP diastolic 68–89; PULSE 76–103; RESP 10–20; TEMP 36.4–37.1; O2SAT 92–100
--- NOTE | ~2021-03-19 | XR_ITS ---
EXAMINATION: XR retrograde pyelo w/stent LT EXAM DATE: 03/19/2021 15:25 INDICATION: Left-sided ureteral stone, stent placement. TECHNIQUE: Fluoroscopy used during XR retrograde pyelo w/stent LT performed by Dr. Angel lanier MD, urologist. The radiologist Sidney Darby M.D. dictating this report of the image(s) availabl e was not present for the procedure. Total fluoroscopic time of 36 seconds. The DAP for this proced ure was 0.67 mGym2. A total of 8 images sent to PACS from the exam. FINDINGS: Cannulated and injected. There is mild left hydronephrosis. A double-J ureteral stent was placed. Correlate with procedure note. IMPRESSION: Mild left hydronephrosis. Stent in position. Reviewed, dictated and finalized at location G. D [employer]
[2021-03-19] MEDS: LACTATED RINGERS 1,000 ML 30 ML IV CONT (12:50)
[2021-03-19 13:10] LABS: Hemoglobin 14.1 g/dL (14.0-18.0)
--- NOTE | 2021-03-19 13:16 | WPDHPUPDATE1 ---
History and Physical Update Update Date/Time: 03/19/21 13:16 History and Physical has been reviewed, including an updated exam of the patient. There are NO changes in the patient's condition. Risks, benefits, and alternatives have been discussed and questions answered. Patient agrees to proceed with procedure. Proceed with cystoscopy, left retrograde pyelogram, left ureteroscopy with stone extraction, possible laser, stent placement
--- NOTE | 2021-03-19 13:32 | WPDANESEFPP ---
Anes - Eval Final PreProcedure Day of Procedure 03/19/21 13:32 Patient weight: overweight Lungs: clear to auscultation Airway: Mallampati scale class II Neurological: alert and oriented Last oral intake: >/= 8 hours ASA classification: III Emergent: no Anesthetic plan: proceed Anesthesia type and monitoring: general LMA and standard monitoring Results Review: All pre-operative results and documents have been reviewed as part of the pre-operative evaluation. Informed Consent: The patient's anesthetic plan and its attendant risks and benefits were discussed with the patient/family/POA. Questions were solicited and answers provided to the satisfaction of the patient/family/POA.
[2021-03-19] MEDS: ceFAZolin 2 GM/D5W 50 ML 2 GM/50 ML BAG IVPB (14:40)
[2021-03-19] MEDS: LIDOCAINE HCL 2% GEL UROJET 10 ML PKG MUCOUS MEM (14:52)
--- NOTE | 2021-03-19 15:25 | W.PM.PROC2 ---
Procedure Note - Detailed Date of Procedure 03/19/21 Pre-op Diagnosis left ureteral stone Post-op Diagnosis same Procedure Performed Cystoscopy, left retrograde pyelogram, left ureteroscopy with holmium laser of stone, stone extraction, left ureteral stent placement 4.8 Turkish contour Surgeon Angel Howell MD Anesthesia general Description of Procedure Patient is taken to the operative suite correctly identified. Once anesthesia was obtained he was placed in dorsal lithotomy position and prepped and draped usual sterile fashion. Twenty-two Turkish scope was inserted bladder there is no tumors noted. The left orifice was cannulated with a guidewire. Rigid ureteral scope was inserted. Multiple stone fragments were seen. The almost had the appearance of a prior lithotripsy. None the less they were too large to retrieve. At this point time an escape basket was used to grasp these. A 273 micron fiber was then used to fragment all the stones. Specimens were retrieved and sent for analysis. Ureteral access sheath was then placed in there were no other stones in the ureter. Pyelogram was then performed to confirm placement of the stent. 4.8 Turkish contour stent was then placed with the proximal end coiled in the renal pelvis and the distal in the bladder. Bladder was drained. 2% viscous lidocaine was inserted into the urethra patient is taken recovery stable condition. She will follow up in a week's time for stent removal. Drains Yes Packing No Pathology yes Complications No immediate complications Condition stable Disposition PACU
[2021-03-19] MEDS: fentaNYL CITRATE INJ (*CRX) 100 MCG/2 ML VIAL 25 MCG IV PUSH ×4 (15:50→16:02)
[2021-03-19] MEDS: OXYBUTYNIN CHLORIDE 5 MG TABLET PO (16:39)
[2021-03-19] MEDS: oxyCODONE HCL (*CRX) 5 MG TAB IR PO (16:40)
== END 2021-03-19 17:12 | disposition home or self-care (01) ==
PROVIDERS: Anesthesiology; PCP Internal Medicine; Visit Provider Urology
PROC: (CPT 52352; principal; 2021-03-19 13:30)
PROC: (CPT 52356; 2021-03-19 13:30)
DX: N13.2 Hydronephrosis with renal and ureteral calculous obstruction (principal); I10 Essential (primary) hypertension; E78.5 Hyperlipidemia, unspecified; G47.33 Obstructive sleep apnea (adult) (pediatric); K50.90 Crohn's disease, unspecified, without complications; E66.9 Obesity, unspecified; Z68.27 Body mass index [BMI] 27.0-27.9, adult; Z87.891 Personal history of nicotine dependence
CPT/HCPCS: 52356; 36415; 74420; 82365; 85014; 85018; 88300; A9270; C1769; C2617; J0690; J1100; J2405; J2704; J3010; J7120; Q9966

== ENCOUNTER 2021-06-08 13:45 | Outpatient (RCR) | payer MEDICARE, BC, SELFPAY ==
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
--- NOTE | 2021-06-08 14:40 | PCPTNOTE ---
Admitting Provider: Attending Provider: Jose Ellis, Patient:Karen Murphy Date of :1940 Physical Therapy Discharge Note Pt referred to therapy due to chronic sacro-iliac pain. He has had symptoms on/off since his 20's with increased pain and limitations since his complications with kidney stones. He has attended 5 therapy visits from 05/11/21 to 06/08/21. As a result of skilled therapy services he reports slight improved pain during the day, but not in the morning. He demonstrates improved trunk motion with slight pain increase. He cont to demonstrate trunk and glut med weakness. Demonstrates improved tissue restriction with joint/muscle flexibility and tissue restriction with palpation. He has been instructed in a HEP and demonstrates compliance and understanding. His therapy goals have been partially met at this time. He has reached maximal potential with skilled therapy services at this time. Will DC skilled therapy services with recommendations for him to f/u with his doctor for additional management of his symptoms. Thank you for referring this patient to [facility]. Please review, sign, date and return this discharge summary BHARATH. I have been updated about the patient's current status and I agree with discharge from the above service at this time. Referring Physician Date
== END 2021-06-09 09:20 | disposition home or self-care (01) ==
LOC: ANHPT 13:45
PROVIDERS: PCP Internal Medicine; Visit Provider Internal Medicine
DX: M53.3 Sacrococcygeal disorders, not elsewhere classified (principal)
CPT/HCPCS: 97110; 97112; 97140; 97161; 97530

== ENCOUNTER 2021-07-18 13:14 | Emergency (ER) | payer MEDICARE, BC, SELFPAY ==
[2021-07-18 13:24] VITALS: BP 147/91; PULSE 100; RESP 18; TEMP 37.4; O2SAT 98
--- NOTE | 2021-07-18 13:25 | ED.FEVER ---
HPI - Fever General Chief Complaint: Urogenital-Male Stated Complaint: fever Time Seen by Provider: 07/18/21 13:25 Source: patient and RN notes reviewed Mode of arrival: ambulatory Limitations: no limitations History of Present Illness HPI Narrative: 81-year-old male presents [facility] with complaints of an intermittent fever at night over the last week. Patient denies any complaints other than having fevers at night. Denies any upper respiratory issues. Denies any chest pain or abdominal pain. Has a history of UTIs and kidney stones. Patient stating he just wants to know the source of his fever is. MD elicited complaint: fever Related Data Home Medications Medication Instructions Recorded Confirmed allopurinol 300 mg tablet 300 mg PO DAILY 09/30/20 03/19/21 amlodipine 10 mg tablet 10 mg PO HS 09/30/20 03/19/21 atorvastatin 40 mg tablet 40 mg PO HS 09/30/20 03/19/21 calcium carbonate 600 mg calcium 600 mg PO BID 09/30/20 03/19/21 (1,500 mg) tablet ferrous sulfate 325 mg (65 mg 325 mg PO DAILY 09/30/20 03/19/21 iron) tablet irbesartan 150 mg tablet 150 mg PO QAM 09/30/20 03/19/21 magnesium 200 mg tablet 200 mg PO DAILY 09/30/20 03/19/21 multivitamin 1 tablet PO DAILY 09/30/20 03/19/21 omega-3 fatty acids-vitamin E 1 cap PO BID 09/30/20 03/19/21 1,000 mg capsule selenium 200 mcg capsule 200 mcg PO DAILY 09/30/20 03/19/21 ustekinumab 90 mg/mL subcutaneous 90 mg subcut USEASDIRECTD 09/30/20 03/18/21 syringe (Stelara) vitamin B complex 1 cap PO DAILY 09/30/20 03/19/21 Allergies Allergy/AdvReac Type Severity Reaction Status Date / Time No Known Allergies Allergy Verified 07/18/21 14:21 Review of Systems Review of Systems: All systems reviewed & are unremarkable except as noted in HPI and below Constitutional: Constitutional: Reports as per HPI, Reports chills and Reports fever(s) Eyes: Eyes: Reports no additional eye complaints ENT: Reports system reviewed and no additional complaints, except as documented Cardiovascular: Cardiovascular: Reports no additional cardiovascular complaints Respiratory: Respiratory: Reports no additional respiratory complaints Gastrointestinal: Gastrointestinal: Reports no additional gastrointestinal complaints Musculoskeletal: Musculoskeletal: Reports no additional musculoskeletal complaints Integumentary/Breasts: Skin/Breast: Reports system reviewed and no additional complaints, except as docu Neurologic: Reports system reviewed and no additional complaints, except as documented Psychiatric: Psychiatric: Reports no additional psychiatric complaints Allergic/Immunologic: Allergic/Immunologic: Reports no additional allergic/immunologic complaints [facility] Past Medical History Medical History Crohn's disease HTN (hypertension) Hyperlipidemia Obesity BOSSMAN (obstructive sleep apnea) Surgical History Surgical History H/O colonoscopy H/O lithotripsy Social History Social History Smoking status: Former smoker Tobacco type: cigars Smoking end date: 08/14/83 Additional smoking assessment comments: CIGARS 3 DAY X 10 YRS Alcohol intake: current Drinks per week: 5 Substance use: never Additional living arrangements comments: Gender identity (if verbalized by the patient): Male Sexual Orientation (if Verbalized by the Patient): Straight or Heterosexual Spiritual care concerns: No Comments At the time of my signature, I reviewed and agree with the nursing past medical, surgical, social, and family history. There is no relevant family history pertinent to the patient complaint. Exam Const: General: no acute distress, alert and ill appearing chronically; not acutely Nutritional Appearance: well nourished Orientation/consciousness: patient oriented x3 Limitations: no limitatio
[2021-07-18 18:54] LABS: SARS-CoV-2 RNA PCR Negative
== END 2021-07-18 14:22 | disposition home or self-care (01) ==
PROVIDERS: Emergency Provider Nurse Practitioner; PCP Internal Medicine
DX: R50.9 Fever, unspecified (principal); R80.9 Proteinuria, unspecified; R31.9 Hematuria, unspecified; Z20.822 Contact with and (suspected) exposure to COVID-19; Z87.891 Personal history of nicotine dependence; I10 Essential (primary) hypertension; E78.5 Hyperlipidemia, unspecified; K50.90 Crohn's disease, unspecified, without complications; E66.9 Obesity, unspecified; Z68.29 Body mass index [BMI] 29.0-29.9, adult; G47.33 Obstructive sleep apnea (adult) (pediatric)
CPT/HCPCS: 81003; 87086; 87804; 99213; C9803; G0463; U0003; U0005

== ENCOUNTER 2021-07-19 15:06 | Outpatient (CLI) | payer MEDICARE, BC, SELFPAY ==
--- NOTE | ~2021-07-19 | XR_ITS ---
XR abdomen/kub 1V 07/19/2021 15:30 Indication: Bilateral kidney stones Procedure: KUB Comparison: Comparison to multiple prior studies sequentially, with oldest reviewed study dated 02/2021. Findings: There are bilateral renal stones. There are cholecystectomy clips. There is nonobstructive bowel gas pattern. No acute osseous abnormality. There is lumbar spondylosis. Impression: 1: Stable bilateral nephrolithiasis. Reviewed, dictated and finalized at location B. Impression: 1: Stable bilateral nephrolithiasis.
== END 2021-07-19 15:07 | disposition home or self-care (01) ==
PROVIDERS: PCP Internal Medicine; Visit Provider Nurse Practitioner Adult Health
DX: N20.0 Calculus of kidney (principal)
CPT/HCPCS: 74018

== ENCOUNTER 2021-07-23 09:18 | Outpatient (CLI) | payer MEDICARE, BC, SELFPAY ==
--- NOTE | ~2021-07-23 | CT_ITS ---
EXAMINATION: CT abdomen pelvis wo con DATE: 07/23/2021 09:41 INDICATION: Gross hematuria. TECHNIQUE: Computed tomography (CT) of the abdomen and pelvis was performed without intravenous contr ast. Automated exposure control and iterative reconstruction technique were employed. The dose-length product was 866.63 mGy-cm. COMPARISON: CT abdomen and pelvis 03/16/2021 FINDINGS: The visualized portions of the lung bases demonstrate mild atelectasis. No pleural effusion . The heart size is normal. There are calcifications of the aortic valve. No pericardial effusion. Th ere is diffuse hepatic steatosis. There are changes of cholecystectomy. The spleen, pancreas, and adr enal glands are normal. There are cysts in the kidneys measuring up to 1.7 cm on the right. There is a 2.5 cm mass of right kidney inferior pole measuring soft tissue attenuation. There is an 8 mm mass of left kidney measuring soft tissue attenuation. There are 8 stones in right kidney measuring up to 6 mm. There are 2 stones in left kidney measuring up to 4 mm. There is a 2 mm stone in the bladder. T he prostate is severely enlarged. There is diverticulosis of the colon without evidence of diverticul itis. There are no dilated loops of bowel. The appendix is normal. There is chronic fat stranding in the small bowel mesentery. There is prominent fat in left inguinal canal that may be a hernia. There are no pathologically enlarged lymph nodes. There is no free intraperitoneal fluid. There is moderate lumbar spondylosis. IMPRESSION: 1. Bilateral nonobstructing kidney stones. 2. 2 mm bladder stone. 3. 2.5 cm right kidney mass and 0.8 cm left kidney mass, which may be hemorrhagic cysts and/or neopla sms. Abdomen MRI without and with contrast is recommended. Reviewed, dictated and finalized at location A. IMPRESSION: 1. Bilateral nonobstructing kidney stones. 2. 2 mm bladder stone. 3. 2.5 cm right kidney mass and 0.8 cm left kidney mass, which may be hemorrhag ic cysts and/or neoplasms. Abdomen MRI without and with contrast is recommended .
--- NOTE | ~2021-07-23 | XR_ITS ---
EXAMINATION: XR abdomen/kub 1V DATE: 07/23/2021 09:38 INDICATION: Gross hematuria. Fever. TECHNIQUE: A supine view of the abdomen on 2 radiographs was obtained. COMPARISON: CT abdomen and pelvis 03/16/2021 FINDINGS: There are no dilated loops of bowel. Surgical clips in the right upper quadrant are likely from cholecystectomy. There are phleboliths in left pelvis. There are stones in the kidneys measuring up to 4 mm on the right. IMPRESSION: 1. Bilateral kidney stones. Reviewed, dictated and finalized at location A. IMPRESSION: 1. Bilateral kidney stones.
== END 2021-07-23 09:19 | disposition home or self-care (01) ==
LOC: ANHIMG 09:18
PROVIDERS: PCP Internal Medicine; Visit Provider Nurse Practitioner Adult Health
DX: R31.0 Gross hematuria (principal); N20.0 Calculus of kidney; N21.0 Calculus in bladder
CPT/HCPCS: 74018; 74176

== ENCOUNTER 2021-07-31 09:52 | Outpatient (CLI) | payer MEDICARE, BC, SELFPAY ==
--- NOTE | ~2021-07-31 | MR_ITS ---
EXAMINATION: MR abdomen wo/w con INDICATION: Bilateral kidney masses TECHNIQUE: Coronal SSFSE ARC, WATER:coronal LAVA-FLEX, Coronal 2D FIESTA FatSat, Axial SSFSE BH ARC, Axial 3D DualEcho BH, Axial SSFSE-IR, Axial DWI b=500, Axial 2D FIESTA FatSat, pre and dynamic postco ntrast Axial LAVA ARC, postcontrast Coronal In and Opposed phase LAVA FLEX COMPARISON: CT, 07/23/2021 CONTRAST: Multihance, 20 cc FINDINGS: The heart size is normal. There is loss of hepatic parenchymal signal on opposed phase imag ing, consistent with hepatic steatosis. The spleen, pancreas, and adrenal glands are normal. The gall bladder is surgically absent. There are multiple cysts of the kidneys, some of which are simple and s ome hemorrhagic. There is a 2.5 cm mass of the right kidney lower pole which demonstrates intermediat e T1 and T2 signal intensity and no enhancement after contrast administration, consistent with a prot einaceous cyst. An 8 mm exophytic lesion of the left mid kidney with similar signal characteristics i s also consistent with a proteinaceous cyst. There are no pathologically enlarged abdominal lymph nod es. No dilated loops of bowel are identified. IMPRESSION: 1. Proteinaceous cysts of the kidneys corresponding to the lesions in question on recent CT. Reviewed, dictated and finalized at location A.
--- NOTE | ~2021-07-31 | MR_ITS ---
EXAMINATION: MR pelvis wo/w con INDICATION: Bilateral kidney masses on CT TECHNIQUE: Coronal SSFSE ARC, WATER:coronal LAVA-FLEX, Coronal 2D FIESTA FatSat, Axial SSFSE BH ARC, Axial 3D DualEcho BH, Axial SSFSE-IR, Axial DWI, Axial 2D FIESTA FatSat, postcontrast Axial LAVA FLEX , postcontrast WATER:coronal,axial, and sagittal LAVA-FLEX COMPARISON: CT, 07/23/2021 CONTRAST: Multihance, 20 cc FINDINGS: No urothelial lesion is identified. The bladder is unremarkable. The prostate is enlarged. There are no pathologically enlarged pelvic lymph nodes. Colonic diverticulosis is noted. There are n o dilated loops of bowel. No abnormal enhancement is present after contrast administration. IMPRESSION: 1. Unremarkable pelvic MRI. Reviewed, dictated and finalized at location A. IMPRESSION: 1. Unremarkable pelvic MRI.
[2021-07-31 10:29] LABS: Estimated Glomerular Filt Rate > 60
== END 2021-07-31 09:53 | disposition home or self-care (01) ==
PROVIDERS: PCP Internal Medicine; Visit Provider Nurse Practitioner Adult Health
DX: N28.1 Cyst of kidney, acquired (principal)
CPT/HCPCS: 72197; 74183; A9577

== ENCOUNTER 2022-12-02 15:08 | Outpatient (CLI) | payer MEDICARE, BC, SELFPAY ==
--- NOTE | ~2022-12-02 | XR_ITS ---
XR abdomen/kub 1V DATE: 12/02/2022 15:24 INDICATION: Bilateral kidney stones. No pain. TECHNIQUE: 2 supine AP views COMPARISON: 07/23/2021 CT abdomen pelvis FINDINGS: There are multiple bilateral renal calcifications. The psoas shadows are intact. No bowel obstruction is detected. Status post cholecystectomy. Degenerative spurring of the thoracic and lumbar spine. 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 IMPRESSION: Bilateral nephrolithiasis Reviewed, dictated and finalized at Location A. Reviewed, dictated and finalized at location B. IMPRESSION: Bilateral nephrolithiasis
== END 2022-12-02 15:09 | disposition home or self-care (01) ==
PROVIDERS: PCP Internal Medicine; Visit Provider Nurse Practitioner Adult Health
DX: N20.0 Calculus of kidney (principal)
CPT/HCPCS: 74018

== ENCOUNTER 2023-01-28 15:53 | Emergency (ER) | payer MEDICARE, BC, SELFPAY ==
--- NOTE | ~2023-01-28 | CT_ITS ---
EXAMINATION: CT cervical spine wo con DATE: 01/28/2023 17:20 INDICATION: trauma TECHNIQUE: Computed tomography (CT) of the cervical spine was performed without intravenous contrast. Automated exposure control and iterative reconstruction technique were employed. The dose-length pro duct was 424.47 mGy-cm. COMPARISON: None. FINDINGS: Vertebral Body Alignment: Intact. Trace multilevel anterolisthesis, likely on a degenerative basis. Craniocervical and atlantoaxial alignment: Moderate degenerative change. Alignment intact. Osseous structures/fracture: No evidence of a lytic or blastic process in the visualized spine. No e vidence of acute fracture. Vertebral body and facet fusion at C2-3. Cervical soft tissues: The paraspinal soft tissues planes are maintained. Degenerative changes: Multilevel moderate degenerative disc disease and facet arthropathy. Multilevel left-sided severe neural foraminal narrowing secondary to degenerative uncovertebral joint and facet change. IMPRESSION: No acute fracture or traumatic malalignment in the cervical spine. Reviewed, dictated and finalized at location K. E TECHNICIAN
--- NOTE | ~2023-01-28 | CT_ITS ---
EXAMINATION: CT brain wo con DATE: 01/28/2023 17:20 INDICATION: head injury . TECHNIQUE: Computed tomography (CT) of the head was performed without intravenous contrast. The mA wa s adjusted according to patient size. Iterative reconstruction technique was employed. The dose-lengt h product was 605.33 mGy-cm. COMPARISON: None. FINDINGS: No acute intracranial hemorrhage or extra-axial fluid collection. No hydrocephalus, mass, or herniation. No acute ischemic infarct. Unremarkable dural venous sinus attenuation. No acute osseous abnormality. Right frontotemporal scalp hematoma/contusion. Retention cyst/polyp in a posterior right ethmoid air cell, the remaining aerated spaces are clear. Mild atrophy and chronic white matter change. Atherosclerotic intracranial calcification. Bilateral l ens replacements. IMPRESSION: No acute intracranial process. Reviewed, dictated and finalized at location K. ER TENDER
[2023-01-28 15:54] VITALS: BP 165/86; PULSE 71; RESP 16; TEMP 36.3; O2SAT 99
--- NOTE | 2023-01-28 16:51 | ED.GENADULT ---
HPI - General Adult General Chief complaint: Head Injury Stated complaint: HEAD INJURY Time Seen by Provider: 01/28/23 16:07 History of Present Illness HPI narrative: 82-year-old male presenting to the emergency department for evaluation after having a fall from bed and injuring his right forehead. Patient is unsure how he fell from bed. Patient does strike his head but had no loss of consciousness. Patient also hit his right ear on a bedside table. Patient did not present to the ED after the injury but present greater than 12 hours after the injury. laceration to right denominational as closely approximated with no active bleeding. Patient denies any other pain or injury. Related Data Home Medications Medication Instructions Recorded Confirmed allopurinol 300 mg tablet 300 mg PO DAILY 09/30/20 08/25/21 amlodipine 10 mg tablet 10 mg PO HS 09/30/20 08/25/21 atorvastatin 40 mg tablet 40 mg PO HS 09/30/20 08/25/21 calcium carbonate 600 mg calcium 600 mg PO BID 09/30/20 08/25/21 (1,500 mg) tablet ferrous sulfate 325 mg (65 mg 325 mg PO DAILY 09/30/20 08/25/21 iron) tablet irbesartan 150 mg tablet 150 mg PO QAM 09/30/20 08/25/21 magnesium 200 mg tablet 200 mg PO DAILY 09/30/20 08/25/21 multivitamin 1 tablet PO DAILY 09/30/20 08/25/21 omega-3 fatty acids-vitamin E 1 cap PO BID 09/30/20 08/25/21 1,000 mg capsule selenium 200 mcg capsule 200 mcg PO DAILY 09/30/20 08/25/21 ustekinumab 90 mg/mL subcutaneous 90 mg subcut USEASDIRECTD 09/30/20 08/25/21 syringe (Stelara) vitamin B complex 1 cap PO DAILY 09/30/20 08/25/21 Allergies Allergy/AdvReac Type Severity Reaction Status Date / Time No Known Allergies Allergy Verified 01/28/23 16:29 Review of Systems Review of Systems: All systems reviewed & are unremarkable except as noted in HPI and below PMFSH Past Medical History Medical History Crohn's disease HTN (hypertension) Hyperlipidemia Obesity BOSSMAN (obstructive sleep apnea) Surgical History Surgical History H/O colonoscopy H/O lithotripsy Social History Social History Smoking status: Former smoker Tobacco type: cigars Smoking end date: 08/14/83 Additional smoking assessment comments: CIGARS 3 DAY X 10 YRS Alcohol intake: current Drinks per week: 5 Substance use: never Living arrangements: with family Additional living arrangements comments: Gender identity (if verbalized by the patient): Male Sexual Orientation (if Verbalized by the Patient): Straight or Heterosexual Spiritual care concerns: No Exam Narrative: APPEARANCE: Well appearing, no pain, no distress, well-nourished. HEAD: normocephalic, forehead laceration EYES: PERRLA/EOMI, conjunctivae clear. NOSE: Normal no drainage EARS:TMS clear with good light reflex. THROAT: Pharynx clear, no exudate. NECK: Supple. No adenopathy, no masses. RESPIRATORY: Airway patent, respirations nonlabored. Clear to auscultation bilaterally, no rales, rhonchi, wheezing. CARDIOVASCULAR: Regular rate and rhythm without murmurs rubs or gallops. ABDOMINAL: Soft, nontender, nondistended, normal bowel sounds MUSCULOSKELETAL: Moves all extremities. Strength/ROM intact, No edema, No calf tenderness. NEURO: Alert. Cranial nerves II through XII intact. Good gait. Good coordination SKIN: Laceration on right denominational with associated hematoma. No active bleeding. Does suture repair was performed Course Course Emergency Course: 82-year-old male presenting ED for evaluation after having a head injury. Laceration was well approximated and hemostasis was achieved. Steri-Strips were placed on the wound. Patient had negative head and neck CT. Patient was updated on results of the workup patient was comfortable with plan discharge and close follow-up with his primary care physician. Rabia
== END 2023-01-28 17:51 | disposition home or self-care (01) ==
PROVIDERS: Emergency Provider Emergency Medicine; PCP Internal Medicine
DX: K50.90 Crohn's disease, unspecified, without complications (principal); E78.5 Hyperlipidemia, unspecified; I10 Essential (primary) hypertension; E66.9 Obesity, unspecified; Z68.29 Body mass index [BMI] 29.0-29.9, adult; G47.33 Obstructive sleep apnea (adult) (pediatric); Z87.891 Personal history of nicotine dependence; W06.XXXA Fall from bed, initial encounter
CPT/HCPCS: 70450; 72125; 99284

== ENCOUNTER 2023-02-17 15:43 | Outpatient (CLI) | payer MEDICARE, BC, SELFPAY ==
--- NOTE | ~2023-02-17 | XR_ITS ---
EXAMINATION: XR abdomen/kub 1V DATE: 02/17/2023 16:03 INDICATION: Bilateral kidney stones. TECHNIQUE: A supine view of the abdomen on 2 radiographs was obtained. COMPARISON: Abdomen radiographs 12/02/2022, CT abdomen and pelvis 07/23/2021 FINDINGS: There are no dilated loops of bowel. Surgical clips in the right upper quadrant are likely from cholecystectomy. The kidneys are obscured by bowel. There are least 4 stones in right kidney and 2 stones in left kidney measuring up to 4 mm on the right. IMPRESSION: 1. Bilateral kidney stones. Reviewed, dictated and finalized at location E. ICATING MACHINE OPERATOR IMPRESSION: 1. Bilateral kidney stones.
== END 2023-02-17 15:44 | disposition home or self-care (01) ==
PROVIDERS: PCP Internal Medicine; Visit Provider Physician Assistant
DX: N20.0 Calculus of kidney (principal)
CPT/HCPCS: 74018

== ENCOUNTER 2024-06-05 13:06 | Outpatient (CLI) | payer MEDICARE, BC, SELFPAY ==
--- NOTE | ~2024-06-05 | XR_ITS ---
XR abdomen/kub 1V Ordering provider: Angel Howell History: . HX BI kidney stones. NO CURRENT SYMPTOMS . Comparison: February 17, 2023 FINDINGS: BOWEL: Nonobstructive bowel gas pattern. ORGANOMEGALY: None. SIGNIFICANT PATHOLOGIC CALCIFICATIONS: Stone is highly suggestive in the left lower ureter which is n ot seen in the previous study and measures 7 mm. Clinical correlation and if warranted noncontrast CT is advised. Bilateral kidney stones are noted. OTHER: No free air is seen under the diaphragm. IMPRESSION: NO ACUTE ABDOMINAL FINDINGS. Bilateral kidney stones. Highly suggestive cyst stone in the left kidney lower ureter. Noncontrast CT is better for evaluation . Reviewed, dictated and finalized at location A. IMPRESSION: NO ACUTE ABDOMINAL FINDINGS. Bilateral kidney stones. Highly suggestive cyst stone in the left kidney lower ureter. Noncontrast CT is better for evaluation.
--- OUTSIDE RECORDS SUMMARY | 2024-06-05 14:43 | XMS_ITS | Encounter Summary ---
Author Organization [facility] Address [address] [place] [address] Phone Care Team Providers Care Linux Network Administrator Name Role Phone Jose Ellis MD Primary Care Provider Encounter Details Date Type Department Care Team (Late st Contact Info) Description 04/11/2017 Orders Only [facility] ProviderSita MD [address] [place] [id number] Social History Tobacco Use Types Packs/Day Years Used Date Smoking Tobacco: Never Smokeless Tobacco: Never Alcohol Use Standard Drinks/Week Comments Yes 0 (1 standard drink = 0.6 oz pur e alcohol) Sex and Gender Information Value Date Recorded Sex Assigned at Not on file Legal 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 Historical Provider LAB BLOOD ORDERABLES Celeste l Result documented in this encounter Visit Diagnoses Not on filedocumented in this encounter Care Teams Linux Network Administrator Relationship Specialty Start Date End Date Jose Ellis MD [address] [facility] [address] [place] [address] PCP - General 05/13/16 documented as of this encounter
--- OUTSIDE RECORDS SUMMARY | 2024-06-05 14:43 | XMS_ITS | Encounter Summary ---
Author Organization [facility] Address [address] [place] [address] Care Team Providers Care Hat Lining Paster Name Role Phone Jose Ellis MD Primary Care Provider Encounter Details Date Type Department Care Team (Late st Contact Info) Description 04/24/2024 Results Follow-Up [facility] Medical Group Primary Care at [facility] [address] [facility] [address] [place] [phone] Jose Ellis MD [facility] [address] Social History Tobacco Use Types Packs/Day Years Used Date Smoking Tobacco: Former Cigars Smokeless Tobacco: Never Alcohol Use Standard Drinks/Week Comments Yes 4 (1 standard drink = 0.6 oz pur e alcohol) AUDIT-C Answer Date Recorded Q1: How often do you have a drink containing alcohol? 4 or more times a week 05/04/2020 Q2: How many drinks containi ng alcohol do you have on a typical day when you are drinking? 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
--- OUTSIDE RECORDS SUMMARY | 2024-06-05 14:43 | XMS_ITS | Encounter Summary ---
Author Organization [facility] Address [address] [facility] [place] [address] Care Team Providers Care Vegetable Worker Name Role Phone Jose Ellis MD Primary Care Provider [phone] Encounter Details Date Type Department Care Team (Late st Contact Info) Description 11/22/2017 Lab Requisition [facility] Care Derm[facility] Lab [address] [facility] [place] [phone] Faisal Narvaez MD [address] [place] [address] Social History Tobacco Use Types Packs/Day Years Used Date Smoking Tobacco: Never Assessed Sex and Gender Information Value Date Recorded Sex Assigned at Not on file Legal 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 Gender Identity Not on file Sexual Orientation Not on file documented as of this encounter Plan of Treatment Not on file documented as of this encounter Procedures Procedure Name Priority Date/Time Associated Diagnosis Comments DERMATOPATHOLOGY Routine 11/21/2017 12:0 0 AM CDT documented in this encounter Results * DERMATOPATHOLOGY (11/21/2017 12:00 AM CDT) Case Report Dermatopathology Report Case: [id number] Authorizing Provider: Faisal Narvaez MD Collected: 11/21/2017 12:00 AM Pathologist: Mackenzie Ferrell MD Received: 11/22/2017 12:20 PM Specimens: A) - Skin, right preauric cheek B) - Skin, right med cheek 3:17 PM [facility] DERMAT[facility]ATHOLOGY [facility]ORAT[facility] Final Diagnosis Specimen A. 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 SKIN, right med cheek: BASAL CELL CARCINOMA (C44.319) NOT PRESENT AT MARGIN 3:17 PM [facility] DERMATOPATHOLOGY [facility]ORAT[facility] Clinical History A: R/O SCC. B: R/O BCC. 3:17 PM [facility]MAT[facility] Gross Description Specimen A: Received is one formalin filled container labeled with the patient's name and designated right preauric cheek. The specimen consists of a shave biopsy measuring [id number]. Jar 0. Specimen B: Received is one formalin filled container labeled with the patient's name and designated right med cheek.The specimen consists of an ellipse measuring [id number] and is oriented with the notch at the 12 o'clock position labeled on the requisition as sup pole. The epidermal surface consists of centrally located [id number] papule. The 12 to 6 o'clock margin is inked green. The 6 o'clock to 12 o'clock margin is inked black. The 12 o'clock tip is submitted in cassette 1. The 6 o'clock tip is submitted in cassette 2. The remainder of the ellipse is serially sectioned and submitted in cassettes 3-4. Jar 0. 3:17 PM [facility] Microscopic Description Specimen A. SKIN, right preauric cheek: There is hyperkeratosis alternating with parakeratosis. There is epidermal hyperplasia with disorderly maturation of keratinocytes with nuclear pleomorphism confined to the lower half of the epidermis. Specimen B. SKIN, right med cheek: Within the dermis there are aggregates of basaloid cells with a high nuclear to cytoplasmic ratio and peripheral palisading. This lesion is not present at the margin of the specimen. The 12 o'clock tip is flipped and bisected. 3:17 PM [facility]MAT[facility]ATHOLOG[facility]OR[facility] Disclaimer An external and internal positive and negative controls are appropriate for the histochemical, immunohistochemical and immunofluorescence stain(s) in this case (if any), except where stated explicitly. The performance characteristics of the stain(s) cited in this report were developed and its performance characteristic determined by the Dermatopathology Laboratory at [facility]. These tests need not be, and therefore are not, approved by the [place] Food and Drug Administration. The tests are used for clinical purposes. Billing Codes Specimen Charges Stain Charges 04641 [id number] 1 1 8 3:17 PM CDT DERMATOPATHOLOGY LABORATORY Embedded Images 8 3:17 PM CDT DERMATOPATHOLOGY LABORATORY Pathology/Cytology TISSUE SPECIMEN FROM SKIN / Unknown 11/21/2017 11/22/2017 12:20 PM CDT Miscellaneous samples (specimen) TISSUE SPECIMEN FROM SKIN / Unknown 11/21/2017 11/22/2017 12:20 PM CDT Faisal Narvaez MD LAB - PATHOLOGY/CYTOLOGY ORD ERABLES Final Result DERMATOPATHOLOGY LABORATORY [facility] - Department of Dermatology [address] [place] [address] [address]th Floor Lab [address] [phone] documented in this encounter Visit Diagnoses Not on filedocumented in this encounter Care Teams Vegetable Worker Relationship Specialty Start Date End Date Jose Ellis MD PCP - General 06/28/17 documented as of this encounter
--- OUTSIDE RECORDS SUMMARY | 2024-06-05 14:43 | XMS_ITS | Encounter Summary ---
Author Organization [facility] Address [address] [place] [address] Care Team Providers Care Purchasing Officer Name Role Phone Jose Ellis MD Primary Care Provider [phone] Encounter Details Date Type Department Care Team (Late st Contact Info) Description 08/12/2020 Lab Requisition [facility] Care [facility] Lab [address] [facility] [place] [phone] Faisal Narvaez MD [address] [place] [address] Social History Tobacco Use Types Packs/Day Years Used Date Smoking Tobacco: Never Smokeless Tobacco: Never Alcohol Use Standard Drinks/Week Comments Yes 0 (1 standard drink = 0.6 oz pur e alcohol) Sex and Gender Information Value Date Recorded Sex Assigned at Not on file 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 Gender Identity Not on file Sexual Orientation Not on file documented as of this encounter Plan of Treatment Not on file documented as of this encounter Procedures Procedure Name Priority Date/Time Associated Diagnosis Comments DERMATOPATHOLOGY Routine 08/11/2020 12:0 0 AM CDT documented in this encounter Results * DERMATOPATHOLOGY (08/11/2020 12:00 AM CDT) Case Report Dermatopathology Report Case: [id number] Authorizing Provider: Faisal Narvaez MD Collected: 08/11/2020 12:00 AM Ordering Location: [facility] Received: 08/12/2020 01:33 PM Pathologist: Holly Erazo MD Specimens: A) - Skin, right upper chest B) - Skin, right upper back 2:04 PM [facility] DERMATOPATHOLOGY [facility]ORATORY Final Diagnosis Specimen A. SKIN, right upper chest: LICHEN PLANUS-LIKE KERATOSIS (BENIGN LICHENOID KERATOSIS) (L82.1) Specimen B. SKIN, right upper back: HYPERPLASTIC (HYPERTROPHIC) ACTINIC KERATOSIS (L57.0) 2:04 PM [facility] DERMATOPATH[facility]Y [facility]OR[facility] Clinical History A: R/O BCC, Cummings, SCC, LPLK. B: R/O BCC, rash nos, SCC. 2:04 PM [facility] DERMATOPATHOLOGY [facility]OR[facility] Gross Description Specimen A: Received is one formalin filled container labeled with the patient's name and designated right upper chest. The specimen consists of a shave biopsy measuring [id number]. Jar 0. Specimen B: Received is one formalin filled container labeled with the patient's name and designated right upper back. The specimen consists of a shave biopsy measuring [id number]. Jar 0. 2:04 PM [facility] DERMATOPATHOLOGY [facility] Microscopic Description Specimen A. SKIN, right upper chest: The epidermis is mildly acanthotic. There is a lichenoid infiltrate with vacuolar changes of basilar keratinocytes and scattered necrotic keratinocytes. Specimen B. SKIN, right upper back: There is hyperkeratosis alternating with parakeratosis. There is epidermal hyperplasia with disorderly maturation of keratinocytes with nuclear pleomorphism confined to the lower half of the epidermis. 2:04 PM [facility] Disclaimer An external and internal positive and negative controls are appropriate for the histochemical, immunohistochemical and immunofluorescence stain(s) in this case (if any), except where stated explicitly. The performance characteristics of the stain(s) cited in this report were developed and its performance characteristic determined by the Dermatopathology Laboratory at [facility], directed by Dr. Rosina Ferrell. These tests need not be, and therefore are not, approved by the [place] Food and Drug Administration. The tests are used for clinical purposes. Billing Codes Specimen Charges Stain Charges 88743 [id number] 1 1 07/01/202 1 2:04 PM CDT DERMATOPATHOLOGY LABORATORY Embedded Images 1 2:04 PM CDT DERMATOPATHOLOGY LABORATORY Pathology/Cytology TISSUE SPECIMEN FROM SKIN / Unknown 08/11/2020 08/12/2020 1:33 PM CDT Miscellaneous samples (specimen) TISSUE SPECIMEN FROM SKIN / Unknown 08/11/2020 08/12/2020 1:33 PM CDT Faisal Narvaez MD LAB - PATHOLOGY/CYTOLOGY ORD ERABLES Final Result DERMATOPATHOLOGY LABORATORY [facility] - Department of Dermatology [facility] Medicine [address] [place] [address], [address] [phone] documented in this encounter Visit Diagnoses Not on filedocumented in this encounter Care Teams Purchasing Officer Relationship Specialty Start Date End Date Jose Ellis MD PCP - General 06/28/17 documented as of this encounter
--- OUTSIDE RECORDS SUMMARY | 2024-06-05 14:43 | XMS_ITS | Clinical Summary ---
Author Organization [facility] Address [address] [place] [address] Care Team Providers Care Associate Professor Of Musicology Name Role Phone Jose Ellis MD Primary Care Provider [phone] Source Comments [facility],non-owned Affiliates and Associated Physician Practices is amultiple site organization consisting of ambulatory clinics and hospital sitesin [place], [place], [place] and [place]. This disclosure is being madepursuant to the Care Everywhere program and may not contain all information available regarding this patient. Last updated 17.[facility] Allergies No known active allergies Medications * Be aware that medications may not be up to date on this document. Alwaysverify current medications with the patient. allopurinol (ZYLOPRIM) 300 MG tablet Take 300 mg by mouth once daily 1 8 Active amLODIPine (NORVASC) 10 MG tablet Take 10 mg by mouth once daily 3 8 Active atorvastatin (LIPITOR) 40 MG tablet Take 40 mg by mouth once daily 3 8 Active B Complex Vitamins (B COMPLEX PO) Take 1 tablet by mouth once daily 7 Active Calcium Carbonate-Rohini min D3 600-400 MG-UNIT Take 1 tablet by mouth once daily 7 Active ferrous sulfate 325 (65 FE) MG tablet Take 325 mg by mouth once daily 4 Active irbesartan (AVAPRO) 150 MG tablet Take 150 mg by mouth once daily 11 8 Active Magnesium Gluconate 550 MG Take 30 mg by mouth once daily 5 Active Multiple Vitamins-Academic Adviser als (MULTI COMPLETE PO) Take 1 tablet by mouth once daily 7 Active OMEGA-3 FATTY ACIDS-VITAMIN E PO Take 2,000 mg by mouth once daily 7 Active Selenium 200 MCG Take 200 mcg by mouth once daily 7 Active ustekinumab (STELARA) 90 MG/ML prefilled syringe Inject 90 mg subcutaneously Every 90 days Active melatonin 3 MG tablet Take 3 mg by mouth once daily Active omeprazole (PRILOSEC) 20 MG capsule Take 20 mg by mouth daily before breakfast Active Active Problems Problem Noted Date Diagnosed Date Subjective tinnitus, bilateral 12/12/2018 Sensorineural hearing loss, bilateral 05/18/2018 Abdominal pain 08/18/2017 Overview (12/08/2017): Overview: Was in the back right hip and right abd yesterday and is now better Urine is dark though - since starting bactrim Nauseated and low grade fever with fatigue Last Assessment & Plan: Getting stat CMP Dark urine 08/18/2017 Overview (12/08/2017): Overview: Started after starting the Bactrim for prostatitis Was having abd/hip/back pain - now improved Nausea, low grade fever, and vomiting. No diarrhea. Last Assessment & Plan: Discussed with Dr. Ellis. Will get stat CMP Push fluids Can use zofran for nausea For now continue the Bactrim Medicare annual wellness visit, subsequent 07/25 Overview (12/08/2017): Last Assessment & Plan: Please see below for a list of your medical conditions and recommendations. BMI 30.0-30.9,adult 01/31/2017 Overview (12/19/2018): Last Assessment & Plan: He needs to continue efforts at weight loss through regular exercise and calorie restriction, making sure to avoid high fat foods, simple carbohydrates (sugars) and any beverages containing sugar. To work at eating at least 4-5 servings of fruits and vegetables a day. The ideal BMI is 25.0. Hypertension 11/06/2014 Overview (12/08/2017): Overview: He is taking his medications regularly. Now on amlodipine and lisinopril along with spironolactone BP readings at home have been: back to normal Light exercise is not causing pain Last Assessment & Plan: The blood pressure is adequately controlled. Ideally, I want it below 130/80. Will continue with the same medications as prescribed. Salt intake needs to be restricted to keep the sodium level at less than 2000 mg a day. Regular exercise is also important and should be at least four days a week. Pure hyperglyceridemia 11/06/2014 Overview (12/08/2017): Overview: PURE HYPERGLYCERIDEMIA Last Assessment & Plan: To continue to efforts at getting 4-5 servings of fruits and/or vegetables a day. A fasting lipid profile will be checked today. 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 No known recurrence. Continued surveillance by ENT. Tongue carcinoma 11/07/2013 Crohn's disease of small intestine 04/22/2013 Overview (12/08/2017): Overview: REG ENTERITIS, SM INTEST Last Assessment & Plan: Remains on meds. Follows with GI. Gout 04/22/2013 Overview (12/08/2017): Overview: GOUT NOS History of SCC (squamous cell carcinoma) of skin 02/16/2011 Gastroesophageal reflux disease 09/10/2009 Overview (12/08/2017): Overview: ESOPHAGEAL REFLUX Atopic rhinitis 07/11/2006 Overview (12/08/2017): Overview: ALLERGIC RHINITIS NOS History of kidney stones 07/11/2006 Overview (12/08/2017): Overview: 7-18 CT KUB: 8 mm rt sided stone Immunizations Immunization Administration Dates Next Due INFLUENZA VACCINE, TRIV. (AF LURIA, FLUZONE TRIVALENT; 6MO+) (IIV3) 11/06/2014,12/07/2012,11/17/2011,2007 INFLUENZA A Q6T5-39 VACCINE 02/09/2009 INFLUENZA VACCINE 11/13/2010,01/10/2009 INFLUENZA VACCINE, HIGH-DOSE , QUADR. (FLUZONE HIGH-DOSE QUADRIVALENT; 65Y+), 0.7 ML (HD-IIV4) 11/15/2018,11/02/2017,12/21/2016,2015,11/12/2009 INFLUENZA VACCINE, RECOM-CARREON, TRIV. (FLUBLOCK TRIVALENT; 18Y+) (RIV3) 11/13/2013 PNEUMOCOCCAL PPSV23 04/14/2011 Pneumococcal Pcv13 Conj 05/27/2015 TDAP (7yrs+) 04/22/2013 ZOSTER VACCINE, LIVE 03/16/2010 Social History Tobacco Use Types Packs/Day Years Used Date Smoking Tobacco: Never Smokeless Tobacco: Never Alcohol Use Standard Drinks/Week Comments Yes 0 (1 standard drink = 0.6 oz pur e alcohol) Sex and Gender Information Value Date Recorded Sex Assigned at Not on file Legal 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 RECORDER Gender Identity Not on file Sexual Orientation Not on file Last Filed Vital Signs Vital Sign Reading Time Taken Comments Blood Pressure 131/74 12/19/2018 10:43 AM PRODUCTION RECORDER Pulse 68 12/19/2018 10:43 AM PRODUCTION RECORDER Temperature 36.5 C (97.7 F) 12/11/2015 10:31 AM CDT Respiratory Rate 14 12/11/2015 10:31 AM CDT Oxygen Saturation 97% 06/05/2015 9:44 AM CDT Inhaled Oxygen Concentration - - Weight 101.2 kg (223 lb) 12/19/2018 10:43 AM PRODUCTION RECORDER Height 182.9 cm (6') 12/19/2018 10:43 AM PRODUCTION RECORDER Body Mass Index 30.24 12/19/2018 10:43 AM PRODUCTION RECORDER Plan of Treatment Health Maintenance Due Date Last Done Comments MEDICARE AWV 12 MONTHS 1940 ZOSTER VACCINE (2 of 3) 05/11/2010 03/16/2010 Respiratory Syncytial Virus (RSV) Vaccine Pt: or over 60 yrs (1 - 1-dose 75+ series) 07/14/2015 DTAP/TDAP/TD VACCINES (2 - Td or Tdap) 04/23/2023 04/22/2013 COVID-19 VACCINE (2 - season) 2023 11/06/2020 DEPRESSION SCREENING 02/14/2024 INFLUENZA VACCINE (Season Ended) 2024 11/13/2020, 11/15/2018, 11/02/2017, Additional history exists PNEUMOCOCCAL VACCINE 50+ Completed 05/27/2015, 02/2011 HEPATITIS B VACCINE Aged Out No longe r eligible based on patient's age to complete this topic HIB VACCINE Aged Out No longer eligi ble based on patient's age to complete this topic HPV VACCINE Aged Out No longer eligi ble based on patient's age to complete this topic MENINGOCOCCAL (Group B) VACCINE SHARED DECISION-MAKING Aged Out No longer eligible based on patient's age to complete this topic MENINGOCOCCAL GROUPS A/C/Y/W VACCINE Aged Out No longer eligible based on patient's age to complete this topic Insurance MEDICARE [facility], [facility] MEDICARE [facility], [facility] Address: [address] [place] [address] MEDICARE Advance Directives Documents on File Type Date Recorded Patient Program Mgr Expl anation Advance Directives and Livin g Will 11/07/2013 12:00 AM Care Teams Associate Professor Of Musicology Relationship Specialty Start Date End Date Jose Ellis MD PCP - General 06/28/17
--- OUTSIDE RECORDS SUMMARY | 2024-06-05 14:43 | XMS_ITS | Clinical Summary ---
Author Organization [facility] Address [address] [place] [address] Care Team Providers Care Certified Court/Medical Interpreter Name Role Phone Jose Ellis MD Primary Care Provider Allergies No known active allergies Medications omega-3 fatty acids-vitamin E 1,000 mg capsule Take two by mouth one time per day 0 0 07/12/19 07 Active multivitamin capsule Take one by mouth one time per day 0 0 07/12/19 07 Active omeprazole OTC (PriLOSEC OTC) 20 mg EC tablet every other day 0 10/13/19 11 Active selenium 200 mcg tablet,delayed release (DR/EC) Take one by mouth one time per day 0 0 01/03/20 07 Active b complex vitamins tablet Take as directed 0 0 01/03/20 07 Active magnesium 30 mg tablet daily 0 0 11/07/19 15 Active albuterol HFA (PROAIR HFA) 90 mcg/actuation inhaler Inhale 2 puffs every 4 (four) hours as needed for wheezing or shortness of breath. 8.5 g 03/21/19 18 Active ustekinumab (STELARA) injection Inject 90 mg under the skin every 8 (eight) weeks Active melatonin tablet Take by mouth Active calcium carbonate-shannan min D3 500 mg(1,250mg) -400 unit chewable tablet Take 2 tablets by mouth daily Active metoprolol XL (TOPROL-XL) 25 mg extended release tablet Take 1 tablet (25 mg total) by mouth daily 05/17/19 24 Active atorvastatin (LIPITOR) 40 mg tablet TAKE 1 TABLET(40 MG) BY MOUTH DAILY 90 tablet 3 06/15/19 24 Active amLODIPine (NORVASC) 10 mg tablet TAKE 1 TABLET(10 MG) BY MOUTH DAILY 90 tablet 1 01/01/20 24 Active irbesartan (AVAPRO) 150 mg tablet TAKE 1 TABLET(150 MG) BY MOUTH EVERY NIGHT 90 tablet 3 03/08/19 25 Active predniSONE (DELTASONE) 10 mg tablet Take 4 tabs (40mg) daily for 4 days, then take 3 tabs (40mg) daily for 4 days. Continue to decrease by 1 tab (10mg) every 4 days until gone. 40 tablet 05/16/19 25 Active febuxostat (ULORIC) 40 mg tablet TAKE 1 TABLET(40 MG) BY MOUTH DAILY 90 tablet 05/21/19 25 Active febuxostat (ULORIC) 40 mg tablet Take 1 tablet (40 mg total) by mouth daily 30 tablet 04/24/19 25 025 Discontinued Active Problems Problem Noted Date Diagnosed Date Advance care planning 10/24/2023 Overview (10/24/2023): 11-06 HCPOA: : Alecia. Limited Code Assessment & Plan (10/24/2023 11:53 AM CDT): Advance Care Planning Advance Care Planning Conversation Pertinent diagnoses: age, Crohn's The patient and/or family consented to a voluntary Advance Care Planning conversation. Individuals present for the conversation: patient Summary of the conversation: Limited Code Outcome of the conversation and documents completed (select all that apply): CHANGE code status to DNR/DNI I spent 16 minutes providing separately identifiable ACP services with the patient and/or surrogate decision maker in a voluntary, in-person conversation discussing the patient's wishes and goals as detailed in the above note. Jose Ellis MD Class 1 obesity due to exces s calories with serious comorbidity and body mass index (BMI) of 30.0 to 30.9 in adult 10/24/2023 Assessment & Plan (04/23/2024 1:19 PM CDT): He needs to continue efforts at weight loss through regular exercise and calorie restriction, making sure to avoid high fat foods, simple carbohydrates (sugars) and any beverages containing sugar. To work at eating at least 4-5 servings of fruits and vegetables a day. The ideal BMI is 25.0. Assessment & Plan (10/24/2023 11:49 AM CDT): He needs to continue efforts at weight loss through regular exercise and calorie restriction, making sure to avoid high fat foods, simple carbohydrates (sugars) and any beverages containing sugar. To work at eating at least 4-5 servings of fruits and vegetables a day. The ideal BMI is 25.0. NSVT (nonsustained ventricular tachycardia) 02/14 Overview (03/10/2023): 1-24 event monitor: 3 episodes of NSVT, start metoprolol, refer to EP Assessment & Plan (04/17/2024 1:20 PM HVAC SALES ENGINEER): Chronic, stable. No symptoms. No PVCs/NSVT on ECG today. Stress testing without any evidence of ischemia. Inferior wall fixed defect with normal wall motion more suggestive of artifact. --Continue metoprolol XL 25 mg daily Assessment & Plan (10/24/2023 11:48 AM CDT): No known recurrence. Continue on low dose betablocker. Assessment & Plan (04/21/2023 10:56 AM HVAC SALES ENGINEER): Continue BB Assessment & Plan (04/12/2023 4:13 PM HVAC SALES ENGINEER): PVCs with moderate burden (7%) and short episodes of nonsustained ventricular tachycardia. Incidentally discovered, asymptomatic. Occurring in context of a structurally normal heart. PVCs appear multifocal. In absence of symptoms or LV dysfunction, no further therapy beyond BB recommended. Will arrange for stress testing to rule out any ischemia. --Treadmill nuclear stress test --Continue metoprolol XL 50 mg daily --F/u annually if testing is reassuring Assessment & Plan (03/10/2023 2:46 PM HVAC SALES ENGINEER): Start on low dose BB Refer to EP. Check echo Check electrolytes, Mg and thyroid Facial laceration 01/31/2023 Tension type headache 07/04/2022 Assessment & Plan (07/04/2022 2:42 PM CDT): Likely related to neck stiffness. Use heating pad to left side of neck and foam roller. Tylenol as needed. Spinal stenosis of lumbar re gion with neurogenic claudication 06/18/2021 Overview (06/28/2021): 07-04 MRI L/S spine: severe spinal stenosis L4-5 Assessment & Plan (06/18/2021 1:03 PM CDT): Suspected. Send for an MRI of the L/S spine as he has failed conservative management. Sacro-iliac pain 04/26/2021 Assessment & Plan (04/26/2021 3:28 PM CDT): Send for formal PT. Renal mass 09/11/2020 Overview (10/07/2021): 09-02 CT abd ([facility]): right renal mass, ureteral stone. I asked him to bring CT to to compare to 2018 CT 01-03 CT abd ([place]) bilateral exophytic masses 09-03 CT abd: right renal cysts: stable Assessment & Plan (09/29/2020 2:21 PM CDT): Follow with urology. Obstructive sleep apnea 05/25/2020 Assessment & Plan (10/24/2023 11:42 AM CDT): Patient is compliant with and continues to benefit from cpap therapy as currently ordered. To continue using it nightly. Assessment & Plan (10/31/2022 1:17 PM CDT): Patient is compliant with and continues to benefit from cpap therapy as currently ordered. To continue using it nightly. Assessment & Plan (10/07/2021 10:25 AM CDT): Patient is compliant with and continues to benefit from cpap therapy as currently ordered. To continue using it nightly. Assessment & Plan (09/29/2020 1:55 PM CDT): Patient is compliant with and continues to benefit from cpap therapy as currently ordered. To continue using it nightly. Subjective tinnitus, bilateral 12/12/2018 Sensorineural hearing loss, bilateral 05/18/2018 Medicare annual wellness visit, subsequent 07/25 Assessment & Plan (10/24/2023 11:40 AM CDT): Please see below for a list of your medical conditions and recommendations. Assessment & Plan (10/31/2022 1:17 PM CDT): Please see below for a list of your medical conditions and recommendations. Assessment & Plan (10/07/2021 10:23 AM CDT): Please see below for a list of your medical conditions and recommendations. Assessment & Plan (09/29/2020 1:52 PM CDT): Please see below for a list of your medical conditions and recommendations. Assessment & Plan (08/27/2019 11:30 AM CDT): Please see below for a list of your medical conditions and recommendations. Assessment & Plan (08/06/2018 11:28 AM CDT): Please see below for a list of your medical conditions and recommendations. Assessment & Plan (07/25/2017 11:43 AM CDT): Please see below for a list of your medical conditions and recommendations. Pure hyperglyceridemia 11/06/2014 Assessment & Plan (10/24/2023 11:42 AM CDT): To continue to efforts at getting 4-5 servings of fruits and/or vegetables a day. A fasting lipid profile will be checked today. Assessment & Plan (10/31/2022 1:17 PM CDT): To continue to efforts at getting 4-5 servings of fruits and/or vegetables a day. A fasting lipid profile will be checked today. Assessment & Plan (10/07/2021 10:24 AM CDT): To continue to efforts at getting 4-5 servings of fruits and/or vegetables a day. A fasting lipid profile will be checked today. Assessment & Plan (04/05/2021 10:32 AM HVAC SALES ENGINEER): To continue to efforts at getting 4-5 servings of fruits and/or vegetables a day. Assessment & Plan (09/29/2020 1:55 PM CDT): To continue to efforts at getting 4-5 servings of fruits and/or vegetables a day. A fasting lipid profile will be checked today. Assessment & Plan (08/27/2019 11:30 AM CDT): To continue to efforts at getting 4-5 servings of fruits and/or vegetables a day. A fasting lipid profile will be checked today. Assessment & Plan (08/06/2018 11:29 AM CDT): To continue to efforts at getting 4-5 servings of fruits and/or vegetables a day. A fasting lipid profile will be checked today. Assessment & Plan (07/25/2017 11:45 AM CDT): To continue to efforts at getting 4-5 servings of fruits and/or vegetables a day. A fasting lipid profile will be checked today. Hypertension 11/06/2014 Overview (05/17/2023): 4-24 decrease metoprolol to 25/d for bradycardia to 30's at night Assessment & Plan (10/24/2023 11:41 AM CDT): The blood pressure is adequately controlled. Ideally, I want it below 130/80. Will continue with the same medications as prescribed (metoprolol, amlodipine, irbesartan). Salt intake needs to be restricted to keep the sodium level at less than 2000 mg a day. Regular exercise is also important and should be at least four days a week. Assessment & Plan (04/21/2023 10:55 AM HVAC SALES ENGINEER): The blood pressure is adequately controlled. Ideally, I want it below 130/80. Will continue with the same medications as prescribed (metoprolol, irbesartan, amlodipine). Salt intake needs to be restricted to keep the sodium level at less than 2000 mg a day. Regular exercise is also important and should be at least four days a week. Assessment & Plan (03/10/2023 2:46 PM HVAC SALES ENGINEER): Watch HR and BP on metoprolol. Assessment & Plan (10/31/2022 1:16 PM CDT): The blood pressure is adequately controlled. Ideally, I want it below 130/80. Will continue with the same medications as prescribed (amlodipine, irbesartan). Salt intake needs to be restricted to keep the sodium level at less than 2000 mg a day. Regular exercise is also important and should be at least four days a week. Assessment & Plan (04/12/2022 1:02 PM HVAC SALES ENGINEER): The blood pressure is adequately controlled. Ideally, I want it below 130/80. Will continue with the same medications as prescribed (irbesartan, amlodipine). Salt intake needs to be restricted to keep the sodium level at less than 2000 mg a day. Regular exercise is also important and should be at least four days a week. Assessment & Plan (10/07/2021 10:23 AM CDT): The blood pressure is adequately controlled. Ideally, I want it below 130/80. Will continue with the same medications as prescribed (irbesartan). Salt intake needs to be restricted to keep the sodium level at less than 2000 mg a day. Regular exercise is also important and should be at least four days a week. Assessment & Plan (04/05/2021 10:32 AM HVAC SALES ENGINEER): The blood pressure is adequately controlled. Ideally, I want it below 130/80. Will continue with the same medications as prescribed (irbesartan, amlodipine). Salt intake needs to be restricted to keep the sodium level at less than 2000 mg a day. Regular exercise is also important and should be at least four days a week. Assessment & Plan (09/29/2020 1:53 PM CDT): The blood pressure is adequately controlled. Ideally, I want it below 130/80. Will continue with the same medications as prescribed (irbesartan, amlodipine). Salt intake needs to be restricted to keep the sodium level at less than 2000 mg a day. Regular exercise is also important and should be at least four days a week. Assessment & Plan (03/30/2020 10:07 AM HVAC SALES ENGINEER): The blood pressure is adequately controlled. Ideally, I want it below 130/80. Will continue with the same medications as prescribed. Salt intake needs to be restricted to keep the sodium level at less than 2000 mg a day. Regular exercise is also important and should be at least four days a week. Assessment & Plan (08/27/2019 11:30 AM CDT): The blood pressure is adequately controlled. Ideally, I want it below 130/80. Will continue with the same medications as prescribed. Salt intake needs to be restricted to keep the sodium level at less than 2000 mg a day. Regular exercise is also important and should be at least four days a week. Assessment & Plan (04/22/2019 10:19 AM CDT): BP a bit elevated today - generally runs in range at home. No changes Assessment & Plan (02/19/2019 11:44 AM HVAC SALES ENGINEER): The blood pressure is adequately controlled. Ideally, I want it below 130/80. Will continue with the same medications as prescribed. Salt intake needs to be restricted to keep the sodium level at less than 2000 mg a day. Regular exercise is also important and should be at least four days a week. Assessment & Plan (08/06/2018 11:54 AM CDT): The blood pressure is adequately controlledat home but a bit high here. To continue to monitor at home. Ideally, I want it below 130/80. Will continue with the same medications as prescribed. Salt intake needs to be restricted to keep the sodium level at less than 2000 mg a day. Regular exercise is also important and should be at least four days a week. Assessment & Plan (01/30/2018 11:33 AM HVAC SALES ENGINEER): The blood pressure is adequately controlled. Ideally, I want it below 130/80. Will continue with the same medications as prescribed. Salt intake needs to be restricted to keep the sodium level at less than 2000 mg a day. Regular exercise is also important and should be at least four days a week. Assessment & Plan (07/25/2017 11:43 AM CDT): The blood pressure is adequately controlled. Ideally, I want it below 130/80. Will continue with the same medications as prescribed. Salt intake needs to be restricted to keep the sodium level at less than 2000 mg a day. Regular exercise is also important and should be at least four days a week. Assessment & Plan (03/08/2017 7:38 AM HVAC SALES ENGINEER): The blood pressure is under good control. Ideally it should be under 130/80. Continue medications without adjustment. Continue efforts to eat well (4-5 fruits and veggies) daily and exercise for about 30 min nearly every day. Adopt the [place] diet. Watch salt intake, keeping to less than 2000mg per day. Limit alcohol. Include stratagies to cope with stress. Labs will be checked today. Assessment & Plan (01/31/2017 1:36 PM HVAC SALES ENGINEER): The blood pressure is not adequately controlled. Ideally, I want it below 130/80. Will continue with the same medications as prescribed and add spironolactone 12.5 mg a day. Salt intake needs to be restricted to keep the sodium level at less than 2000 mg a day. Regular exercise is also important and should be at least four days a week. Reassess with a BMP in three weeks. Malignant neoplasm of tongue (CMS/HCC) 5 Overview (04/12/2022): Resected Assessment & Plan (04/23/2024 1:27 PM CDT): Has follow up in May. To ask about ethmoid retention cyst seen on CT. Assessment & Plan (10/24/2023 11:41 AM CDT): Resected. No known recurrence. Assessment & Plan (04/21/2023 10:55 AM HVAC SALES ENGINEER): No known recurrence. Assessment & Plan (10/31/2022 1:16 PM CDT): No recurrence after resection. Assessment & Plan (04/12/2022 1:03 PM HVAC SALES ENGINEER): Followed by ENT Assessment & Plan (10/07/2021 10:23 AM CDT): Follows with ENT Assessment & Plan (09/29/2020 1:53 PM CDT): No evidence of recurrence. Follows with ENT. Assessment & Plan (08/27/2019 11:31 AM CDT): No clinical evidence of recurrent disease. Assessment & Plan (02/19/2019 11:44 AM HVAC SALES ENGINEER): Resected. No known recurrence. Gout 04/22/2013 Overview (04/23/2024): 3-25 change allopurinol to uloric (for rash). Assessment & Plan (04/23/2024 1:19 PM CDT): Change allopurinol to uloric for rash. Assessment & Plan (10/07/2021 10:24 AM CDT): Continue with Allopurinol. Check uric acid today to ensure good control. Assessment & Plan (04/26/2021 3:30 PM CDT): Check uric acid level on allopurinol. Assessment & Plan (08/27/2019 11:31 AM CDT): Continue with Allopurinol. Check uric acid today to ensure good control. Crohn's disease of small intestine 04/22/2013 Overview (09/29/2020): 3-19 colon: stricture Assessment & Plan (04/23/2024 1:19 PM CDT): Currently quiescent. Assessment & Plan (10/24/2023 11:42 AM CDT): Follows with GI. On Stelara to good effect. Assessment & Plan (04/21/2023 10:56 AM HVAC SALES ENGINEER): No recent exacerbations. Assessment & Plan (10/31/2022 1:15 PM CDT): Follows with GI. Assessment & Plan (04/12/2022 1:03 PM HVAC SALES ENGINEER): Now on stelara. Followed by GI. Assessment & Plan (10/07/2021 10:24 AM CDT): Not currently active. Follows with GI. Assessment & Plan (04/26/2021 3:29 PM CDT): I doubt that his pain is due to inflammatory arthritis but will check CRP, CBC. Assessment & Plan (04/05/2021 10:32 AM HVAC SALES ENGINEER): Currently stable. Follows with GI. Assessment & Plan (09/29/2020 1:55 PM CDT): Follows with GI. Symptoms are currently stable. Assessment & Plan (03/30/2020 10:07 AM HVAC SALES ENGINEER): Currently stable. Follows with GI. Assessment & Plan (08/27/2019 11:31 AM CDT): Currently stable. Assessment & Plan (02/19/2019 11:44 AM HVAC SALES ENGINEER): Follows with GI. Relatively stable currently. Assessment & Plan (08/06/2018 11:29 AM CDT): Followed by GI. Currently stable. Assessment & Plan (01/30/2018 11:33 AM HVAC SALES ENGINEER): Currently stable on current regimen. Assessment & Plan (07/25/2017 11:44 AM CDT): Remains on meds. Follows with GI. Gastroesophageal reflux disease 09/10/2009 Overview (09/22/2020): ESOPHAGEAL REFLUX Overview: ESOPHAGEAL REFLUX Atopic rhinitis 07/11/2006 Overview (09/22/2020): ALLERGIC RHINITIS NOS Overview: ALLERGIC RHINITIS NOS History of kidney stones 07/11/2006 Overview (04/08/2021): 08-30 CT KUB: 8 mm rt sided stone Overview: 08-30 CT KUB: 8 mm rt sided stone - recurrence. 01-03: s/p ESWL 04/06: recent retrieval procedure with stent placement Assessment & Plan (08/04/2021 2:59 PM CDT): Followed by urology. Assessment & Plan (04/05/2021 10:59 AM HVAC SALES ENGINEER): Drink plenty of water. At least 2 liters a day. Assessment & Plan (09/29/2020 2:17 PM CDT): Following with urology. Recent lithotripsy. Resolved Problems Problem Noted Date Diagnosed Date Resolved Date Fever 08/04/2021 04/12/2022 Assessment & Plan (08/23/2021 2:05 PM CDT): Diagnosis is not readily apparent. Differential diagnosis is infectious, autoimmune conditions, neoplastic. Check labs as listed. Given cough, check CXR. If no disease is readily apparent will send for CT chest/abd/pelvis. Assessment & Plan (08/04/2021 2:58 PM CDT): I don't have a good explanation for his fevers. It is possible that he has seeded his prostate and has chronic prostatitis. He did seem to respond to the cipro but may need to do a two week course. He has previously had a normal WBC and CRP but if it persists would repeat and consider autoimmune work up as well. Upper back pain 06/18/2021 10/07/2021 Assessment & Plan (06/18/2021 1:02 PM CDT): CXR today. Add this to his PT orders. Sleep-disordered breathing 05/04/2020 0 06/02/2020 Fatigue 05/04/2020 09/29/2020 Pneumonia of right middle lo be due to infectious organism 04/22/2019 09/29/2020 Overview (05/07/2019): 39-00 Ongoing for 2 weeks - OTC not helping. Mucus - PND - yellow. No fever or chills. Energy ok. No SOB. Assessment & Plan (05/07/2019 3:40 PM CDT): Clinically he looks to be doing much better. To continue with mucinex to help clear out both the lung and sinuses. He has an appointment in August. I put in an order for CXR to be done on that day to ensure clearing of the infiltrate. Assessment & Plan (04/22/2019 10:16 AM CDT): Will get chest xray For now : Start zpack Use albuterol inhaler every 4 hours while awake Continue mucinex. Dark urine 08/18/2017 09/29/2020 Overview (09/22/2020): Started after starting the Bactrim for prostatitis Was having abd/hip/back pain - now improved Nausea, low grade fever, and vomiting. No diarrhea. Overview: Started after starting the Bactrim for prostatitis Was having abd/hip/back pain - now improved Nausea, low grade fever, and vomiting. No diarrhea. Last Assessment & Plan: Discussed with Dr. Ellis. Will get stat CMP Push fluids Can use zofran for nausea For now continue the Bactrim Assessment & Plan (08/18/2017 10:39 AM CDT): Discussed with Dr. Ellis. Will get stat CMP Push fluids Can use zofran for nausea For now continue the Bactrim Abdominal pain 08/18/2017 09/29/2020 Overview (09/22/2020): Was in the back right hip and right abd yesterday and is now better Urine is dark though - since starting bactrim Nauseated and low grade fever with fatigue Overview: Was in the back right hip and right abd yesterday and is now better Urine is dark though - since starting bactrim Nauseated and low grade fever with fatigue Last Assessment & Plan: Getting stat CMP Assessment & Plan (08/18/2017 10:53 AM CDT): Getting stat CMP Shortness of breath 03/08/2017 07/26/19 18 Assessment & Plan (03/21/2017 11:41 AM HVAC SALES ENGINEER): I suspect this is pulmonary. Will treat for atypical organisms with azithromycin. Will have him start albuterol. Reassess in two weeks. Will consider full PFT's and a chest CT if no better. Assessment & Plan (03/08/2017 9:54 AM HVAC SALES ENGINEER): Will get chest xray Will get echo Will discuss with Dr. Ellis BMI 31.0-31.9,adult 01/31/2017 11/01/19 23 Overview (09/22/2020): Last Assessment & Plan: He needs to continue efforts at weight loss through regular exercise and calorie restriction, making sure to avoid high fat foods, simple carbohydrates (sugars) and any beverages containing sugar. To work at eating at least 4-5 servings of fruits and vegetables a day. The ideal BMI is 25.0. Assessment & Plan (04/05/2021 10:59 AM HVAC SALES ENGINEER): He needs to continue efforts at weight loss through regular exercise and calorie restriction, making sure to avoid high fat foods, simple carbohydrates (sugars) and any beverages containing sugar. To work at eating at least 4-5 servings of fruits and vegetables a day. The ideal BMI is 25.0. Assessment & Plan (09/29/2020 2:20 PM CDT): He needs to continue efforts at weight loss through regular exercise and calorie restriction, making sure to avoid high fat foods, simple carbohydrates (sugars) and any beverages containing sugar. To work at eating at least 4-5 servings of fruits and vegetables a day. The ideal BMI is 25.0. Assessment & Plan (03/30/2020 10:07 AM HVAC SALES ENGINEER): He needs to continue efforts at weight loss through regular exercise and calorie restriction, making sure to avoid high fat foods, simple carbohydrates (sugars) and any beverages containing sugar. To work at eating at least 4-5 servings of fruits and vegetables a day. The ideal BMI is 25.0. Assessment & Plan (08/27/2019 11:31 AM CDT): He needs to continue efforts at weight loss through regular exercise and calorie restriction, making sure to avoid high fat foods, simple carbohydrates (sugars) and any beverages containing sugar. To work at eating at least 4-5 servings of fruits and vegetables a day. The ideal BMI is 25.0. Assessment & Plan (04/22/2019 10:19 AM CDT): BMI Follow-up includes: nutrition counseling and exercise counseling. Assessment & Plan (02/19/2019 11:45 AM HVAC SALES ENGINEER): He needs to continue efforts at weight loss through regular exercise and calorie restriction, making sure to avoid high fat foods, simple carbohydrates (sugars) and any beverages containing sugar. To work at eating at least 4-5 servings of fruits and vegetables a day. The ideal BMI is 25.0. Assessment & Plan (08/06/2018 11:29 AM CDT): He needs to continue efforts at weight loss through regular exercise and calorie restriction, making sure to avoid high fat foods, simple carbohydrates (sugars) and any beverages containing sugar. To work at eating at least 4-5 servings of fruits and vegetables a day. The ideal BMI is 25.0. Assessment & Plan (01/30/2018 11:56 AM HVAC SALES ENGINEER): He needs to continue efforts at weight loss through regular exercise and calorie restriction, making sure to avoid high fat foods, simple carbohydrates (sugars) and any beverages containing sugar. To work at eating at least 4-5 servings of fruits and vegetables a day. The ideal BMI is 25.0. Assessment & Plan (01/31/2017 1:29 PM HVAC SALES ENGINEER): He needs to continue efforts at weight loss through regular exercise and calorie restriction, making sure to avoid high fat foods, simple carbohydrates (sugars) and any beverages containing sugar. To work at eating at least 4-5 servings of fruits and vegetables a day. The ideal BMI is 25.0. 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 Oliver altamirano saw 12/2016 Encounters Date Type Department Care Team Description 05/20/2024 2:00 PM CDT Procedure visit [facility] Otolaryngology [address] [place] [phone] Yomaira Pérez Au.D. Sensorineural hearing loss, bilateral (Primary Dx); Subjective tinnitus, bilateral 05/15/2024 Orders Only [facility] Primary Care at [address] [place] [phone] Jose Ellis MD 04/24/2024 Results Follow-Up [facility] Primary Care at [address] [place] [phone] Jose Ellis MD 04/23/2024 2:15 PM CDT - 04/23/2024 11:59 PM CDT Hospital Encounter [id number] [place] [phone] Discharge Disposition: Discharge to home or self care 04/23/2024 1:45 PM CDT Lab [facility] Primary Care at [address] [place] [phone] Gout, unspecified cause, unspecified chronicity, unspecified site 04/23/2024 1:30 PM CDT Office Visit [facility] Primary Care at [address] [place] [phone] Jose Ellis MD Gout, unspecified cause, unspecified chronicity, unspecified site (Primary Dx); Crohn's disease of small intestine without complication (HCC); Class 1 obesity due to excess calories with serious comorbidity and body mass index (BMI) of 30.0 to 30.9 in adult; Rash; Leukopenia, unspecified type; Malignant neoplasm of tongue (CMS/HCC) (HCC) 04/17/2024 1:00 PM HVAC SALES ENGINEER [facility] [address] [place] [address] Yonis Granda III, MD NSVT (nonsustained ventricular tachycardia) (HCC) (Primary Dx); Cardiac arrhythmia, unspecified cardiac arrhythmia type 04/03/2024 1:45 PM HVAC SALES ENGINEER Office Visit [facility] Primary Care at [facility] [address] [place] [address] Jose Elils MD Left arm pain (Primary Dx); Axillary pain, right from Last 3 Months Immunizations Immunization Administration Dates Next Due COVID-19 mRNA (Safer Minicabs) 0.3 m L (30 mcg) vaccine (12 years and up) 12/21/2022 H1N1 All Forms 02/09/2009 Influenza, Quadrivalent, Hig h Dose, Preservative Free, Intrr 10/31/2022,11/28/2021,12/16/2020,11/05,11/15/2018,11/02/2017,12/21/2016 ,12/16/2015,11/12/2009 Influenza, Quadrivalent, Spl it, Preservative Free, Intramuscular 12/07/2012 Influenza, Split 11/13/2010,01/10/2009 Influenza, Trivalent, Adjuva nted, Intramuscular 11/13/2013 Influenza, Trivalent, High D ose, Split, Preservative Free, Intramuscular 11/22/2023,11/15/2018,11/02/2017,12/21,12/16/2015,11/12/2009 Influenza, Trivalent, IM (MDV) 5,12/07/2012,11/17/2011,12/20 Influenza, Trivalent, Recomb inant, Egg Free, Preservative Free, Antibiotic Free, IM (FLUBLOK) 11/13/2013 Influenza, Unspecified 10/15/2023,2021,11/13/2020,11/13,01/10/2009 Pfizer SARS-CoV-2 Monovalent Vaccination (12+ Yrs) PURPLE 11/18/2020,11/06/2020 Pneumococcal Conjugate PCV 13 05/27/2015 Pneumococcal Polysaccharide PPV23 04/14/2011 RSV, Bivalent, Protein Subun it Rsvpref, Diluent (Abrysvo) 12/21/2022 Tdap 03/13/2024,04/22/2013 ZOSTER LIVE 03/16/2010 ZOSTER Recombinant 03/13/2024 Surgical History Surgery Date Site/Laterality Comments OTHER SURGICAL HISTORY 02/13/2010 - 02/12/2011 basal cell/squamoous cell back/scalp: resected CHOLECYSTECTOMY 02/13/2009 - 02/12/2010 VASECTOMY 02/13/1973 - 02/12/1974 CATARACT EXTRACTION 2021 Medical History Medical History Date Comments Hx Other Medical Hypertriglyceri demia Gout Gout Hx Other Medical h/o renal stone , recurrence 02-13 Hypertension Hypertension Hx Other Medical 2003 Crohns disease w/ ileitis Hx Other Medical 2009 laparoscopic ch olecystectomy Hx Other Medical basal cell/squa moous cell back/scalp GERD (gastroesophageal reflu x disease) 1989 Autoimmune disease 1996 Kidney stone 1976 Pneumonia of right middle lo be due to infectious organism 04/22/2019 04-22-99 Ongoing for 2 weeks - OTC not helping. Mucus - PND - yellow. No fever or chills. Energy ok. No SOB. Cataract 2019 Sleep apnea 2019 Family History Medical History Relation Name Comments Cancer Father Hans Banegas Esophageal cancer Father Hans Banegas Cancer - esophageal; Heart attack Father Hans Banegas Parkinsonism Father Hans Banegas Parkinson's d isease; Cause of : Parkinson's disease Colon polyps Mother Colon polyps; Glaucoma Mother Glaucoma; Relation Name Status Comments Father Hans Banegas Mother Social History Tobacco Use Types Packs/Day Years Used Date Smoking Tobacco: Former Cigars Smokeless Tobacco: Never Tobacco Cessation:Counseling Given: Not Answered Alcohol Use Standard Drinks/Week Comments Yes 4 [...] on file Legal Sex Male 11:21 PM HVAC SALES ENGINEER Gender Identity Male 08/26/2019 8:43 AM CDT Sexual Orientation Straight 08/26/2019 8: 43 AM CDT Obstetrics History Last Filed Vital Signs Vital Sign Reading Time Taken Comments Blood Pressure 139/78 04/23/2024 12:57 PM CDT Pulse 76 04/17/2024 1:07 PM HVAC SALES ENGINEER Temperature 37.2 C (99 F) 01/31/2023 2:52 PM HVAC SALES ENGINEER Respiratory Rate 12 10/06/2020 1:21 PM CDT Oxygen Saturation 97% 04/12/2023 2:53 PM HVAC SALES ENGINEER Inhaled Oxygen Concentration - - Weight 98 kg (216 lb) 04/23/2024 12:57 PM CDT Height 180.3 cm (5' 11 ) 04/23/2024 12:57 PM CDT Body Mass Index 30.13 04/23/2024 12:57 PM CDT Plan of Treatment Health Maintenance Due Date Last Done Comments Covid-19 Vaccine ( season) 2024 11/08/2023, 12/21/2022, 09/01/2022, Additional history exists Zoster Vaccine (3 of 3) 05/08/2024 03/13/2024, 03/16 Depression Screening 10/23/2024 10/24/2023, 10/31/2022, 10/07/2021, Additional history exists Fall Risk Assessment 10/23/2024 10/24/2023, 10/31/2022, 10/07/2021, Additional history exists Well Visit 65+ 10/23/2024 10/24/2023, 10/14, 10/07/2021, Additional history exists DTaP/Tdap/Td Vaccine (3 - Td or Tdap) 03/13/2034 03/13/2024, 04/22/2013 Pneumococcal vaccine 65+ Completed 05/27/2015, 02/2011 Hepatitis B Screening Completed 10/24/2023 Influenza Vaccine Completed 11/22/2023, , 10/31/2022, Additional history exists Procedures Procedure Name Priority Date/Time Associated Diagnosis Comments AUDBASE RESULTS 05/20/2024 1:52 PM CDT MANUAL DIFFERENTIAL Routine 04/23/2024 1 :37 PM CDT Gout, unspecified cause, unspecified chronicity, unspecified site CBC WITH AUTO DIFFERENTIAL Routine 04/23/2024 1:37 PM CDT Gout, unspecified cause, unspecified chronicity, unspecified site ECG 12-LEAD Routine 04/17/2024 1:04 PM HVAC SALES ENGINEER Cardiac arrhythmia, unspecified cardiac arrhythmia type from Last 3 Months Results * AudBase Results (05/20/2024 1:52 PM CDT) us Provider Scanning AUDIOLOGY SERVICES ORDERABLES Final Result * (ABNORMAL) CBC with auto differential (04/23/2024 1:37 PM CDT) WBC 2.3(L) 3.8 - 9.9 K/cumm Hgb 13.8 13.0 - 17.5 g/dL [facility] Hct 42.5 38.9 - 50.3 % [facility] Plt 173 150 - 400 K/cumm [facility] MPV 11.7 9.1 - 12.3 fL [facility] RBC 4.64 4.30 - 5.80 M/cumm [facility] MCV 91.6 81.3 - 96.4 fL [facility] MCH 29.7 27.1 - 33.3 pg [facility] MCHC 32.5 32.3 - 35.7 g/dL [facility] RDW CV 14.1 11.1 - 14.9 % [facility] RDW SD 46.9 35.7 - 48.1 fL [facility] NRBC abs 0.00 0.00 - 0.01 K/cumm [facility] Blood 04/23/2024 1:37 PM CDT 04/23/2024 7:46 PM CDT Jose Ellis MD LAB BLOOD ORDERABLES Final Result [facility] [address] Department [place] [address] * (ABNORMAL) Manual Differential (04/23/2024 1:37 PM CDT) Differential Manual Cells Counted 114 [facility] Neutrophil abs 0.7(L) 1.5 - 6.5 K/cumm [facility] Imm gran abs 0.1 0.0 - 0.1 K/cumm [facility] Lymphocyte abs 1.3 0.8 - 3.3 K/cumm [facility] Monocyte abs 0.2 0.2 - 0.8 K/cumm [facility] Basophil abs 0.0 0.0 - 0.1 K/cumm [facility] Neutrophil pct 31.6 % [facility] Comment: Interpretive Data Percent cell count reference ranges are not reported, since discordance with absolute values may lead to misinterpretation of CBC data. Current Interpretive Data was last revised on 2017. Lymphocyte pct 50.0 % [facility] Comment: Interpretive Data Percent cell count reference ranges are not reported, since discordance with absolute values may lead to misinterpretation of CBC data. Current Interpretive Data was last revised on 2017. Monocyte pct 7.9 % [facility] Comment: Interpretive Data Percent cell count reference ranges are not reported, since discordance with absolute values may lead to misinterpretation of CBC data. Current Interpretive Data was last revised on 2017. Basophil pct 0.9 % [facility] Comment: Interpretive Data Percent cell count reference ranges are not reported, since discordance with absolute values may lead to misinterpretation of CBC data. Current Interpretive Data was last revised on 2017. Myelocyte pct 3.5(H) 0.0 - 0.0 % [facility] Variant lymph pct 6.1(H) 0.0 - 0.0 % [facility] RBC morphology Present(A) [facility] Anisocytosis Slight(A) [facility] Microcytes 3-7/HPF(A) [facility] Morphology scrn See Comment [facility] Comment:PLT: Platelet morpho logy normal Blood 04/23/2024 1:37 PM CDT 04/23/2024 7:46 PM CDT us Jose Ellis MD LAB BLOOD ORDERABLES Final Result [facility] [address] Department [place] [address] * ECG 12 lead (04/17/2024 1:04 PM HVAC SALES ENGINEER) us Yonis Granda III, MD ECG ORDERABLES Fin al Result from Last 3 Months Insurance MEDICARE [facility] MEDICARE [facility] FEDERAL MEDICARE [facility] Advance Directives For more information, please contact: [phone] * LIMITED - No CPR (Latest Code Status on File) Date Activated Date Inactivated Comments 10/24/2023 11:58 AM Question Answer Comments Cardio Resuscitation: No Chest CompressionsNo De fibrillation/Cardioversion Ventilation: No Intubation Care Teams Certified Court/Medical Interpreter Relationship Specialty Start Date End Date Jose Ellis MD [address] [facility] [address] [place] [address] [facility] - General 05/13/16
--- OUTSIDE RECORDS SUMMARY | 2024-06-05 14:43 | XMS_ITS | Referral Summary ---
Author Organization [facility] Address [address] [place] [address] Care Team Providers Care Invoicing Machine Operator Name Role Phone Jose Ellis MD Primary Care Provider Encounters Date Type Department Care Team Description 05/20/2024 2:00 PM CDT Procedure visit [facility] Otolaryngology [facility] Medical Office Building [address] [place] [address] Yomaira Pérez Au.D. Sensorineural hearing loss, bilateral (Primary Dx); Subjective tinnitus, bilateral 05/15/[address] [facility] Primary Care at [address] [place] [phone] Jose Ellis MD 04/24/2024 Results Follow-Up [facility] Primary Care at [address] [place] [phone] Jose Ellis MD 04/23/2024 2:15 PM CDT - 04/23/2024 11:59 PM CDT Hospital Encounter [address] [phone] Discharge Disposition: Discharge to home or self care 04/23/2024 1:[address] [facility] at [facility] [phone] Gout, unspecified cause, unspecified chronicity, unspecified site 04/23/2024 1:30 PM CDT Office Visit [facility] Primary Care at [address] [phone] Jose Ellis MD Gout, unspecified cause, unspecified chronicity, unspecified site (Primary Dx); Crohn's disease of small intestine without complication (HCC); Class 1 obesity due to excess calories with serious comorbidity and body mass index (BMI) of 30.0 to 30.9 in adult; Rash; Leukopenia, unspecified type; Malignant neoplasm of tongue (CMS/HCC) (HCC) 04/17/2024 1:00 PM COAT JOINER Office [facility] [address] [place] [phone] Yonis Granda III, MD NSVT (nonsustained ventricular tachycardia) ([facility]) (Primary Dx); Cardiac arrhythmia, unspecified cardiac arrhythmia type 04/03/2024 1:45 PM COAT JOINER Office Visit [facility] Primary Care at [address] [phone] Jose Ellis MD Left arm pain (Primary Dx); Axillary pain, right from Last 3 Months Allergies No known active allergies Medications omega-3 [...] NSVT (nonsustained ventricular tachycardia) 02/14 Overview (03/10/2023): 124 event monitor: 3 episodes of NSVT, start metoprolol, refer to EP Assessment & Plan (04/17/2024 1:20 PM COAT JOINER): Chronic, stable. No symptoms. No PVCs/NSVT on ECG today. Stress testing without any evidence of ischemia. Inferior wall fixed defect with normal wall motion more suggestive of artifact. --Continue metoprolol XL 25 mg daily Assessment & Plan (10/24/2023 11:48 AM CDT): No known recurrence. Continue on low dose betablocker. Assessment & Plan (04/21/2023 10:56 AM COAT JOINER): Continue BB Assessment & Plan (04/12/2023 4:13 PM COAT JOINER): PVCs with moderate burden (7%) and short [...] reassuring Assessment & Plan (03/10/2023 2:46 PM COAT JOINER): Start on low dose BB Refer to EP. Check echo Check electrolytes, Mg and thyroid Facial laceration 01/31/2023 Tension type headache 07/04/2022 Assessment & Plan (07/04/2022 2:42 PM CDT): Likely related to neck stiffness. Use heating pad to left side of neck and foam roller. Tylenol as needed. Spinal stenosis of lumbar re gion with neurogenic claudication 06/18/2021 Overview (06/28/2021): - MRI L/S spine: severe spinal stenosis L4-5 Assessment & Plan (06/18/2021 1:03 PM CDT): Suspected. Send for an MRI of the L/S spine as he has failed conservative management. Sacro-iliac pain 04/26/2021 Assessment & Plan (04/26/2021 3:28 PM CDT): Send for formal PT. Renal mass 09/11/2020 Overview (10/07/2021): 09-02 CT abd ([facility]): right renal mass, ureteral stone. I asked him to bring CT to to compare to 2018 CT 01-03 CT abd ([place]) bilateral exophytic masses 09-03 CT abd: right [...] today. Assessment & Plan (04/05/2021 10:32 AM COAT JOINER): To continue to efforts at getting 4-5 [...] week. Assessment & Plan (04/21/2023 10:55 AM COAT JOINER): The blood pressure is adequately controlled. Ideally, I want it below 130/80. Will continue with the same medications as prescribed (metoprolol, irbesartan, amlodipine). Salt intake needs to be restricted to keep the sodium level at less than 2000 mg a day. Regular exercise is also important and should be at least four days a week. Assessment & Plan (03/10/2023 2:46 PM COAT JOINER): Watch HR and BP on metoprolol. Assessment [...] week. Assessment & Plan (04/12/2022 1:02 PM COAT JOINER): The blood pressure is adequately controlled. Ideally, [...] week. Assessment & Plan (04/05/2021 10:32 AM COAT JOINER): The blood pressure is adequately controlled. Ideally, [...] week. Assessment & Plan (03/30/2020 10:07 AM COAT JOINER): The blood pressure is adequately controlled. Ideally, [...] changes Assessment & Plan (02/19/2019 11:44 AM COAT JOINER): The blood pressure is adequately controlled. Ideally, [...] week. Assessment & Plan (01/30/2018 11:33 AM COAT JOINER): The blood pressure is adequately controlled. Ideally, [...] week. Assessment & Plan (03/08/2017 7:38 AM COAT JOINER): The blood pressure is under good control. [...] today. Assessment & Plan (01/31/2017 1:36 PM COAT JOINER): The blood pressure is not adequately controlled. [...] recurrence. Assessment & Plan (04/21/2023 10:55 AM COAT JOINER): No known recurrence. Assessment & Plan (10/31/2022 1:16 PM CDT): No recurrence after resection. Assessment & Plan (04/12/2022 1:03 PM COAT JOINER): Followed by ENT Assessment & Plan (10/07/2021 10:23 AM CDT): Follows with ENT Assessment & Plan (09/29/2020 1:53 PM CDT): No evidence of recurrence. Follows with ENT. Assessment & Plan (08/27/2019 11:31 AM CDT): No clinical evidence of recurrent disease. Assessment & Plan (02/19/2019 11:44 AM COAT JOINER): Resected. No known recurrence. Gout 04/22/2013 Overview [...] effect. Assessment & Plan (04/21/2023 10:56 AM COAT JOINER): No recent exacerbations. Assessment & Plan (10/31/2022 1:15 PM CDT): Follows with GI. Assessment & Plan (04/12/2022 1:03 PM COAT JOINER): Now on stelara. Followed by GI. Assessment & Plan (10/07/2021 10:24 AM CDT): Not currently active. Follows with GI. Assessment & Plan (04/26/2021 3:29 PM CDT): I doubt that his pain is due to inflammatory arthritis but will check CRP, CBC. Assessment & Plan (04/05/2021 10:32 AM COAT JOINER): Currently stable. Follows with GI. Assessment & Plan (09/29/2020 1:55 PM CDT): Follows with GI. Symptoms are currently stable. Assessment & Plan (03/30/2020 10:07 AM COAT JOINER): Currently stable. Follows with GI. Assessment & Plan (08/27/2019 11:31 AM CDT): Currently stable. Assessment & Plan (02/19/2019 11:44 AM COAT JOINER): Follows with GI. Relatively stable currently. Assessment & Plan (08/06/2018 11:29 AM CDT): Followed by GI. Currently stable. Assessment & Plan (01/30/2018 11:33 AM COAT JOINER): Currently stable on current regimen. Assessment & Plan (07/25/2017 11:44 AM CDT): Remains on meds. Follows with GI. Gastroesophageal reflux disease 09/10/2009 Overview (09/22/2020): ESOPHAGEAL REFLUX Overview: ESOPHAGEAL REFLUX Atopic rhinitis 07/11/2006 Overview (09/22/2020): ALLERGIC RHINITIS NOS Overview: ALLERGIC RHINITIS NOS History of kidney stones 07/11/2006 Overview (04/08/2021): 7-18 CT KUB: 8 mm rt sided stone Overview: 08-30 CT KUB: 8 mm rt sided stone 10-03 recurrence. 01-03: s/p ESWL 04/06: recent retrieval procedure with stent placement Assessment & Plan (08/04/2021 2:59 PM CDT): Followed by urology. Assessment & Plan (04/05/2021 10:59 AM COAT JOINER): Drink plenty of water. At least 2 [...] to infectious organism 04/22/2019 09/29/2020 Overview (05/07/2019): 3-9-00 Ongoing for 2 weeks - OTC not [...] 18 Assessment & Plan (03/21/2017 11:41 AM COAT JOINER): I suspect this is pulmonary. Will treat for atypical organisms with azithromycin. Will have him start albuterol. Reassess in two weeks. Will consider full PFT's and a chest CT if no better. Assessment & Plan (03/08/2017 9:54 AM COAT JOINER): Will get chest xray Will get echo [...] 25.0. Assessment & Plan (04/05/2021 10:59 AM COAT JOINER): He needs to continue efforts at weight [...] 25.0. Assessment & Plan (03/30/2020 10:07 AM COAT JOINER): He needs to continue efforts at weight [...] counseling. Assessment & Plan (02/19/2019 11:45 AM COAT JOINER): He needs to continue efforts at weight [...] 25.0. Assessment & Plan (01/30/2018 11:56 AM COAT JOINER): He needs to continue efforts at weight loss through regular exercise and calorie restriction, making sure to avoid high fat foods, simple carbohydrates (sugars) and any beverages containing sugar. To work at eating at least 4-5 servings of fruits and vegetables a day. The ideal BMI is 25.0. Assessment & Plan (01/31/2017 1:29 PM COAT JOINER): He needs to continue efforts at weight [...] SCC with wide resection Follows with Dr. Boyd yearly - just saw 12/2016 Immunizations Immunization Administration Dates Next Due COVID-19 mRNA (Propeller) 0.3 m L (30 mcg) vaccine (12 [...] Free, IM (FLUBLOK) 11/13/2013 Influenza, Unspecified 10/15/2023,2021,11/13/2020,11/13,01/10/2009 Bondora (by isePankur) SARS-CoV-2 Monovalent Vaccination (12+ Yrs) PURPLE 11/18/2020,11/06/2020 Pneumococcal Conjugate PCV 13 05/27/2015 Pneumococcal Polysaccharide PPV23 04/14/2011 RSV, Bivalent, Protein Subun it Rsvpref, Diluent (Abrysvo) 12/21/2022 Tdap 03/13/2024,04/22/2013 ZOSTER LIVE 03/16/2010 ZOSTER Recombinant 03/13/2024 Social History Tobacco Use Types Packs/Day Years [...] on file Legal Sex Male 11:21 PM COAT JOINER Gender Identity Male 08/26/2019 8:43 AM CDT Sexual Orientation Straight 08/26/2019 8: 43 AM CDT Last Filed Vital Signs Vital Sign Reading Time Taken Comments Blood Pressure 139/78 04/23/2024 12:57 PM CDT Pulse 76 04/17/2024 1:07 PM COAT JOINER Temperature 37.2 C (99 F) 01/31/2023 2:52 PM COAT JOINER Respiratory Rate 12 10/06/2020 1:21 PM CDT Oxygen Saturation 97% 04/12/2023 2:53 PM COAT JOINER Inhaled Oxygen Concentration - - Weight 98 kg (216 lb) 04/23/2024 12:57 PM CDT Height 180.3 cm (5' 11 ) 04/23/2024 12:57 PM CDT Body Mass Index 30.13 04/23/2024 12:57 PM CDT Plan of Treatment Not on file Procedures Procedure Name Priority Date/Time Associated Diagnosis Comments AUDBASE RESULTS 05/20/2024 1:52 PM CDT MANUAL DIFFERENTIAL Routine 04/23/2024 1 :37 PM CDT Gout, unspecified cause, unspecified chronicity, unspecified site CBC WITH AUTO DIFFERENTIAL Routine 04/23/2024 1:37 PM CDT Gout, unspecified cause, unspecified chronicity, unspecified site ECG 12-LEAD Routine 04/17/2024 1:04 PM COAT JOINER Cardiac arrhythmia, unspecified cardiac arrhythmia type from Last 3 Months Results * AudBase Results (05/20/2024 1:52 PM CDT) Provider Scanning AUDIOLOGY SERVICES ORDERABLES Final Result * (ABNORMAL) CBC with auto differential (04/23/2024 1:37 PM CDT) WBC 2.3(L) 3.8 - 9.9 K/cumm Hgb 13.8 13.0 - 17.5 g/dL [facility] Hct 42.5 38.9 - 50.3 % [facility] Plt 173 150 - 400 K/cumm [facility] MPV 11.7 9.1 - 12.[address] [facility] RBC 4.64 4.30 - 5.80 M/cumm [facility] MCV 91.6 81.3 - 96.[address] [facility] MCH 29.7 27.1 - 33.[address] [facility] MCHC 32.5 32.3 - 35.7 g/dL [facility] RDW CV 14.1 11.1 - 14.9 % [facility] RDW SD 46.9 35.7 - 48.[address] [facility] NRBC abs 0.00 0.00 - 0.01 K/cumm [facility] Blood 04/23/2024 1:37 PM CDT 04/23/2024 7:46 PM CDT Jose Ellis MD LAB BLOOD ORDERABLES Final Result [facility] [address] [place] [address] * (ABNORMAL) Manual Differential (04/23/2024 1:37 PM CDT) Differential Manual Cells Counted 114 [facility] Neutrophil abs 0.7(L) 1.5 - 6.5 K/cumm [facility] Imm gran abs 0.1 0.0 - 0.1 K/cumm [facility] Lymphocyte abs 1.3 0.8 - 3.3 K/cumm [facility] Monocyte abs 0.2 0.2 - 0.8 K/cumm [facility] Basophil abs 0.0 0.0 - 0.1 K/cumm [facility] Neutrophil pct 31.6 % [facility] Comment: Interpretive Data Percent cell count reference ranges are not reported, since discordance with absolute values may lead to misinterpretation of CBC data. Current Interpretive Data was last revised on 2017. Lymphocyte pct 50.0 % [facility] Comment: Interpretive Data Percent cell count reference ranges are not reported, since discordance with absolute values may lead to misinterpretation of CBC data. Current Interpretive Data was last revised on 2017. Monocyte pct 7.9 % [facility] Comment: Interpretive Data Percent cell count reference ranges are not reported, since discordance with absolute values may lead to misinterpretation of CBC data. Current Interpretive Data was last revised on 2017. Basophil pct 0.9 % [facility] Comment: Interpretive Data Percent cell count reference ranges are not reported, since discordance with absolute values may lead to misinterpretation of CBC data. Current Interpretive Data was last revised on 2017. Myelocyte pct 3.5(H) 0.0 - 0.0 % [facility] Variant lymph pct 6.1(H) 0.0 - 0.0 % [facility] RBC morphology Present(A) [facility] Anisocytosis Slight(A) [facility] Microcytes 3-7/HPF(A) [facility] Morphology scrn See Comment [facility] Comment:PLT: Platelet morpho logy normal Blood 04/23/2024 1:37 PM CDT 04/23/2024 7:46 PM CDT Jose Ellis MD LAB BLOOD ORDERABLES Final Result [facility] [address] [place] [address] * ECG 12 lead (04/17/2024 1:04 PM COAT JOINER) Yonis Granda III, MD ECG ORDERABLES Fin al Result from Last 3 Months Insurance MEDICARE [facility] MEDICARE [facility] FEDERAL MEDICARE [facility] FEDERAL Advance Directives For more information, please contact: [phone] * LIMITED - No CPR (Latest Code Status on File) Date Activated Date Inactivated Comments 10/24/2023 11:58 AM Question Answer Comments Cardio Resuscitation: No Chest CompressionsNo De fibrillation/Cardioversion Ventilation: No Intubation Care Teams Invoicing Machine Operator Relationship Specialty Start Date End Date Jose Ellis MD [address] [facility] [address] [place] [address] [facility] - General 05/13/16
--- OUTSIDE RECORDS SUMMARY | 2024-06-05 14:43 | XMS_ITS | Encounter Summary ---
Author Organization [facility] Address [address] [place] [address] Care Team Providers Care Cooler Operator Name Role Phone Jose Ellis MD Primary Care Provider [phone] Encounter Details Date Type Department Care Team (Late st Contact Info) Description 12/12/2022 Lab Requisition [facility] Lab [address] [phone] Faisal Narvaez MD [address] [place] [address] Social History Tobacco Use Types Packs/Day Years Used Date Smoking Tobacco: Never Smokeless Tobacco: Never Alcohol Use Standard Drinks/Week Comments Yes 0 (1 standard drink = 0.6 oz pur e alcohol) Sex and Gender Information Value Date Recorded Sex Assigned at Not on file Legal Sex Male 3:21 PM 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 SALES ADVISOR Gender Identity Not on file Sexual Orientation Not on file documented as of this encounter Plan of Treatment Not on file documented as of this encounter Procedures Procedure Name Priority Date/Time Associated Diagnosis Comments DERMATOPATHOLOGY Routine 12/07/2022 3:33 AM CDT documented in this encounter Results * DERMATOPATHOLOGY (12/07/2022 3:33 AM CDT) Case Report Dermatopathology Report Case: [id number] Authorizing Provider: Faisal Narvaez MD Collected: 12/07/2022 03:33 AM Ordering Location: [facility] Received: 12/12/2022 09:30 AM Pathologist: Mackenzie Ferrell MD Specimen: Skin, ant aspect right sideburn 5:16 PM CDT DERMATOPATHOLOGY LABORATORY Final Diagnosis Specimen A. SKIN, ant aspect right sideburn: SEBORRHEIC KERATOSIS, INFLAMED (L82.0) 5:16 PM CDT DERMATOPATHOLOGY LABORATORY Clinical History R/O SCC, ISK 5:16 PM CDT DERMATOPATHOLOGY LABORATORY Gross Description Specimen A: Received is one formalin filled container labeled with the patient's name and designated ant aspect right sideburn. The specimen consists of a shave biopsy measuring 8x7x3 mm. Jar 0. 5:16 PM CDT DERMATOPATHOLOGY LABORATORY Microscopic Description Specimen A. SKIN, ant aspect right sideburn: There is hyperkeratosis, parakeratosis, papillomatosis, and acanthosis of the epidermis. There is a lymphohistiocytic infiltrate within the papillary dermis that is focally lichenoid. 5:16 PM CDT DERMATOPATHOLOGY LABORATORY Disclaimer An external and internal positive and negative controls are appropriate for the histochemical, immunohistochemical and immunofluorescence stain(s) in this case (if any), except where stated explicitly. The performance characteristics of the stain(s) cited in this report were developed and its performance characteristic determined by the Dermatopathology Laboratory at [facility], directed by Dr. Rosina Ferrell. These tests need not be, and therefore are not, approved by the [place] Food and Drug Administration. The tests are used for clinical purposes. Billing Codes Specimen Charges Stain Charges 28125 1 5:16 PM CDT DERMATOPATHOLOGY LABORATORY Embedded Images 5:16 PM CDT DERMATOPATHOLOGY LABORATORY Pathology/Cytolo gy TISSUE SPECIMEN FROM SKIN / Unknown 12/07/2022 3:33 AM CDT 12/12/2022 9:30 AM CDT us Faisal Narvaez MD LAB - PATHOLOGY/CYTOLOGY ORD ERABLES Final Result DERMATOPATHOLOGY LABORATORY [facility] - Department of Dermatology [facility] Medicine [address] [facility], [address]rd Floor [address] [phone] documented in this encounter Visit Diagnoses Not on filedocumented in this encounter Care Teams Cooler Operator Relationship Specialty Start Date End Date Jose Ellis MD PCP - General 06/28/17 documented as of this encounter
== END 2024-06-05 13:07 | disposition home or self-care (01) ==
PROVIDERS: PCP Internal Medicine; Visit Provider Urology
DX: N20.0 Calculus of kidney (principal)
CPT/HCPCS: 74018

== ENCOUNTER 2024-06-17 13:11 | Outpatient (CLI) | payer MEDICARE, BC, SELFPAY ==
--- NOTE | ~2024-06-17 | CT_ITS ---
Non-contrast CT scan of the Abdomen and Pelvis Clinical indication: Left ureteral stone Technique: 2.5 mm axial scans were obtained through the abdomen and pelvis without intravenous or or al contrast. Dose reduction technique was used on this scan by utilizing automated exposure control a nd iterative reconstruction technique. The dose-length product (DLP) was 380.80 mGy-cm. COMPARISON: 07/23/2021 Findings: Images through the lung bases reveal mild bibasilar chronic interstitial change versus ate lectatic change. Small bilateral nonobstructing renal stones are present, largest measuring 5 mm at the left kidney. N o ureteral stone or hydronephrosis on either side. The liver, spleen, pancreas, and adrenals appear normal. Cholecystectomy clips are present. There is no aortic aneurysm. There is no evidence of bowel obstruction. There is minimal haziness in the central mesentery with sm all shotty lymph nodes, compatible with mesenteric panniculitis. Images through the pelvis were performed. There is no evidence of ascites or lymphadenopathy. 2 urina ry bladder stones are present, largest measuring 8 mm in diameter. Prostate gland is significantly en larged. Impression: No ureteral stone or hydronephrosis on either side. Nonobstructing bilateral renal stones, as detailed above. Bladder stones, as detailed above. Reviewed, dictated and finalized at location . Impression: No ureteral stone or hydronephrosis on either side. Nonobstructing bilateral renal stones, as detailed above. Bladder stones, as detailed above.
--- OUTSIDE RECORDS SUMMARY | 2024-06-17 13:46 | XMS_ITS | Encounter Summary ---
Author Organization [facility] Address [address] [place] [address] Phone Care Team Providers Care Community Specialist Name Role Phone Jose Ellis MD Primary Care Provider Encounter Details Date Type Department Care Team (Late st Contact Info) Description 04/11/2017 Orders Only [facility] ProviderSita MD [address] [place] [id number] Social History Tobacco Use Types Packs/Day Years Used Date Smoking Tobacco: Never Smokeless Tobacco: Never Alcohol Use Standard Drinks/Week Comments Yes 0 (1 standard drink = 0.6 oz pur e alcohol) Sex and Gender Information Value Date Recorded Sex Assigned at Not on file Legal Sex Male 11:21 PM SOLAR ENERGY 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 Historical Provider LAB BLOOD ORDERABLES Celeste l Result documented in this encounter Visit Diagnoses Not on filedocumented in this encounter Care Teams Community Specialist Relationship Specialty Start Date End Date Jose Ellis MD [address] [facility] [address] [place] [address] PCP - General 05/13/16 documented as of this encounter
--- OUTSIDE RECORDS SUMMARY | 2024-06-17 13:46 | XMS_ITS | Encounter Summary ---
Author Organization [facility] Address [address] [place] [address] Care Team Providers Care Stock And Station Agent Name Role Phone Jose Ellis MD Primary Care Provider Encounter Details Date Type Department Care Team (Late st Contact Info) Description 04/24/2024 Results Follow-Up [facility] Medical Group Primary Care at [facility] [address] [facility] [address] [place] [phone] Jose Ellis MD [facility] [address] Social History Tobacco Use Types [...] on file Legal Sex Male 11:21 PM DOUBLE CUT [place] Gender Identity Male 08/26/2019 8:43 AM CDT Sexual Orientation Straight 08/26/2019 8: 43 AM CDT documented as of this encounter Plan of Treatment Not on file documented as of this encounter Visit Diagnoses Not on filedocumented in this encounter Care Teams Stock And Station Agent Relationship Specialty Start Date End Date Jose Ellis MD [address] [facility] [address] [place] [address] PCP - General 05/13/16 documented as of this encounter
--- OUTSIDE RECORDS SUMMARY | 2024-06-17 13:47 | XMS_ITS | Referral Summary ---
Author Organization [facility] Address [address] [place] [address] Care Team Providers Care Homicide Squad Commanding Officer Name Role Phone Jose Ellis MD Primary Care Provider Encounters Date Type Department Care Team Description 05/20/2024 2:00 PM CDT Procedure visit [facility] Otolaryngology [facility] Building [address] [place] [address] Yomaira Pérez Au.D. Sensorineural hearing loss, bilateral (Primary Dx); Subjective tinnitus, bilateral 05/15/2024 Orders Only [facility] Primary Care at [address] [place] [phone] Jose Ellis MD 04/24/2024 Results Follow-Up [facility] Primary Care at [address] [place] [phone] Jose Ellis MD 04/23/2024 2:15 PM CDT - 04/23/2024 11:59 PM CDT Hospital Encounter [address] [phone] Discharge Disposition: Discharge to home or self care 04/23/2024 1:45 PM CDT Lab [facility] at [place] [facility] [phone] Gout, unspecified cause, unspecified chronicity, unspecified site 04/23/2024 1:30 PM CDT Office Visit [facility] Primary Care at [address] [phone] Jose Ellis MD Gout, unspecified cause, unspecified chronicity, unspecified site (Primary Dx); Crohn's disease of small intestine without complication (HCC); Class 1 obesity due to excess calories with serious comorbidity and body mass index (BMI) of 30.0 to 30.9 in adult; Rash; Leukopenia, unspecified type; Malignant neoplasm of tongue (CMS/HCC) (HCC) 04/17/2024 1:00 PM WELDER MANUFACTURE [facility] [address] [place] [phone] Yonis Granda III, MD NSVT (nonsustained ventricular tachycardia) ([facility]) (Primary Dx); Cardiac arrhythmia, unspecified cardiac arrhythmia type 04/03/2024 1:45 PM WELDER MANUFACTURE Office Visit [facility] Primary Care at [address] [phone] Jose Ellis MD Left arm [...] EP Assessment & Plan (04/17/2024 1:20 PM WELDER MANUFACTURE): Chronic, stable. No symptoms. No PVCs/NSVT on ECG today. Stress testing without any evidence of ischemia. Inferior wall fixed defect with normal wall motion more suggestive of artifact. --Continue metoprolol XL 25 mg daily Assessment & Plan (10/24/2023 11:48 AM CDT): No known recurrence. Continue on low dose betablocker. Assessment & Plan (04/21/2023 10:56 AM WELDER MANUFACTURE): Continue BB Assessment & Plan (04/12/2023 4:13 PM WELDER MANUFACTURE): PVCs with moderate burden (7%) and short [...] reassuring Assessment & Plan (03/10/2023 2:46 PM WELDER MANUFACTURE): Start on low dose BB Refer to [...] Overview (10/07/2021): 09-02 CT abd ([facility]): right renal mass, ureteral stone. I asked him to bring CT to to compare to 2018 CT 01-03 CT abd ([place]) bilateral exophytic masses 09-03 CT abd: right [...] today. Assessment & Plan (04/05/2021 10:32 AM WELDER MANUFACTURE): To continue to efforts at getting 4-5 [...] week. Assessment & Plan (04/21/2023 10:55 AM WELDER MANUFACTURE): The blood pressure is adequately controlled. Ideally, I want it below 130/80. Will continue with the same medications as prescribed (metoprolol, irbesartan, amlodipine). Salt intake needs to be restricted to keep the sodium level at less than 2000 mg a day. Regular exercise is also important and should be at least four days a week. Assessment & Plan (03/10/2023 2:46 PM WELDER MANUFACTURE): Watch HR and BP on metoprolol. Assessment [...] week. Assessment & Plan (04/12/2022 1:02 PM WELDER MANUFACTURE): The blood pressure is adequately controlled. Ideally, [...] week. Assessment & Plan (04/05/2021 10:32 AM WELDER MANUFACTURE): The blood pressure is adequately controlled. Ideally, [...] week. Assessment & Plan (03/30/2020 10:07 AM WELDER MANUFACTURE): The blood pressure is adequately controlled. Ideally, [...] changes Assessment & Plan (02/19/2019 11:44 AM WELDER MANUFACTURE): The blood pressure is adequately controlled. Ideally, [...] week. Assessment & Plan (01/30/2018 11:33 AM WELDER MANUFACTURE): The blood pressure is adequately controlled. Ideally, [...] week. Assessment & Plan (03/08/2017 7:38 AM WELDER MANUFACTURE): The blood pressure is under good control. [...] today. Assessment & Plan (01/31/2017 1:36 PM WELDER MANUFACTURE): The blood pressure is not adequately controlled. [...] recurrence. Assessment & Plan (04/21/2023 10:55 AM WELDER MANUFACTURE): No known recurrence. Assessment & Plan (10/31/2022 1:16 PM CDT): No recurrence after resection. Assessment & Plan (04/12/2022 1:03 PM WELDER MANUFACTURE): Followed by ENT Assessment & Plan (10/07/2021 10:23 AM CDT): Follows with ENT Assessment & Plan (09/29/2020 1:53 PM CDT): No evidence of recurrence. Follows with ENT. Assessment & Plan (08/27/2019 11:31 AM CDT): No clinical evidence of recurrent disease. Assessment & Plan (02/19/2019 11:44 AM WELDER MANUFACTURE): Resected. No known recurrence. Gout 04/22/2013 Overview [...] effect. Assessment & Plan (04/21/2023 10:56 AM WELDER MANUFACTURE): No recent exacerbations. Assessment & Plan (10/31/2022 1:15 PM CDT): Follows with GI. Assessment & Plan (04/12/2022 1:03 PM WELDER MANUFACTURE): Now on stelara. Followed by GI. Assessment & Plan (10/07/2021 10:24 AM CDT): Not currently active. Follows with GI. Assessment & Plan (04/26/2021 3:29 PM CDT): I doubt that his pain is due to inflammatory arthritis but will check CRP, CBC. Assessment & Plan (04/05/2021 10:32 AM WELDER MANUFACTURE): Currently stable. Follows with GI. Assessment & Plan (09/29/2020 1:55 PM CDT): Follows with GI. Symptoms are currently stable. Assessment & Plan (03/30/2020 10:07 AM WELDER MANUFACTURE): Currently stable. Follows with GI. Assessment & Plan (08/27/2019 11:31 AM CDT): Currently stable. Assessment & Plan (02/19/2019 11:44 AM WELDER MANUFACTURE): Follows with GI. Relatively stable currently. Assessment & Plan (08/06/2018 11:29 AM CDT): Followed by GI. Currently stable. Assessment & Plan (01/30/2018 11:33 AM WELDER MANUFACTURE): Currently stable on current regimen. Assessment & [...] urology. Assessment & Plan (04/05/2021 10:59 AM WELDER MANUFACTURE): Drink plenty of water. At least 2 [...] 18 Assessment & Plan (03/21/2017 11:41 AM WELDER MANUFACTURE): I suspect this is pulmonary. Will treat for atypical organisms with azithromycin. Will have him start albuterol. Reassess in two weeks. Will consider full PFT's and a chest CT if no better. Assessment & Plan (03/08/2017 9:54 AM WELDER MANUFACTURE): Will get chest xray Will get echo [...] 25.0. Assessment & Plan (04/05/2021 10:59 AM WELDER MANUFACTURE): He needs to continue efforts at weight [...] 25.0. Assessment & Plan (03/30/2020 10:07 AM WELDER MANUFACTURE): He needs to continue efforts at weight [...] counseling. Assessment & Plan (02/19/2019 11:45 AM WELDER MANUFACTURE): He needs to continue efforts at weight [...] 25.0. Assessment & Plan (01/30/2018 11:56 AM WELDER MANUFACTURE): He needs to continue efforts at weight loss through regular exercise and calorie restriction, making sure to avoid high fat foods, simple carbohydrates (sugars) and any beverages containing sugar. To work at eating at least 4-5 servings of fruits and vegetables a day. The ideal BMI is 25.0. Assessment & Plan (01/31/2017 1:29 PM WELDER MANUFACTURE): He needs to continue efforts at weight [...] Immunization Administration Dates Next Due COVID-19 mRNA (Creabilis) 0.3 m L (30 mcg) vaccine (12 [...] Free, IM (FLUBLOK) 11/13/2013 Influenza, Unspecified 10/15/2023,2021,11/13/2020,11/13,01/10/2009 Hepa Wash SARS-CoV-2 Monovalent Vaccination (12+ Yrs) PURPLE 11/18/2020,11/06/2020 [...] on file Legal Sex Male 11:21 PM WELDER MANUFACTURE Gender Identity Male 08/26/2019 8:43 AM CDT Sexual Orientation Straight 08/26/2019 8: 43 AM CDT Last Filed Vital Signs Vital Sign Reading Time Taken Comments Blood Pressure 139/78 04/23/2024 12:57 PM CDT Pulse 76 04/17/2024 1:07 PM WELDER MANUFACTURE Temperature 37.2 C (99 F) 01/31/2023 2:52 PM WELDER MANUFACTURE Respiratory Rate 12 10/06/2020 1:21 PM CDT Oxygen Saturation 97% 04/12/2023 2:53 PM WELDER MANUFACTURE Inhaled Oxygen Concentration - - Weight 98 [...] site ECG 12-LEAD Routine 04/17/2024 1:04 PM WELDER MANUFACTURE Cardiac arrhythmia, unspecified cardiac arrhythmia type from Last 3 Months Results * [facility] Results (05/20/2024 1:52 PM CDT) Provider Scanning AUDIOLOGY SERVICES ORDERABLES Final Result * (ABNORMAL) CBC with auto differential (04/23/2024 1:37 PM CDT) WBC 2.3(L) 3.8 - 9.9 K/cumm Hgb 13.8 13.0 - 17.5 g/dL [facility] Hct 42.5 38.9 - 50.3 % [facility] Plt 173 150 - 400 K/cumm [facility] MPV 11.7 9.1 - 12.3 fL [facility] RBC 4.64 4.30 - 5.80 M/cumm [facility] MCV 91.6 81.3 - 96.4 fL [facility] MCH 29.7 27.1 - 33.3 pg [facility] MCHC 32.5 32.3 - 35.7 g/dL [facility] RDW CV 14.1 11.1 - 14.9 % [facility] RDW SD 46.9 35.7 - 48.1 fL [facility] NRBC abs 0.00 0.00 - 0.01 K/cumm [facility] Blood 04/23/2024 1:37 PM CDT 04/23/2024 7:46 PM CDT Jose Ellis MD LAB BLOOD ORDERABLES Final Result [facility] [address] [place] [address] * (ABNORMAL) Manual Differential (04/23/2024 1:37 PM CDT) Differential Manual Cells Counted 114 [facility] Neutrophil abs 0.7(L) 1.5 - 6.5 K/cumm [facility] Imm gran abs 0.1 0.0 - 0.1 K/cumm [facility] Lymphocyte abs 1.3 0.8 - 3.3 K/cumm [facility] Monocyte abs 0.2 0.2 - 0.8 K/cumm [facility] Basophil abs 0.0 0.0 - 0.1 K/cumm [facility] Neutrophil pct 31.6 % [facility] Comment: Interpretive Data Percent cell count reference ranges are not reported, since discordance with absolute values may lead to misinterpretation of CBC data. Current Interpretive Data was last revised on 2017. Lymphocyte pct 50.0 % [facility] Comment: Interpretive Data Percent cell count reference ranges are not reported, since discordance with absolute values may lead to misinterpretation of CBC data. Current Interpretive Data was last revised on 2017. Monocyte pct 7.9 % [facility] Comment: Interpretive Data Percent cell count reference ranges are not reported, since discordance with absolute values may lead to misinterpretation of CBC data. Current Interpretive Data was last revised on 2017. Basophil pct 0.9 % [facility] Comment: Interpretive Data Percent cell count reference ranges are not reported, since discordance with absolute values may lead to misinterpretation of CBC data. Current Interpretive Data was last revised on 2017. Myelocyte pct 3.5(H) 0.0 - 0.0 % [facility] Variant lymph pct 6.1(H) 0.0 - 0.0 % [facility] RBC morphology Present(A) [facility] Anisocytosis Slight(A) [facility] Microcytes 3-7/HPF(A) [facility] Morphology scrn See Comment [facility] Comment:PLT: Platelet morpho logy normal Blood 04/23/2024 1:37 PM CDT 04/23/2024 7:46 PM CDT Jose Ellis MD LAB BLOOD ORDERABLES Final Result [facility] [address] Department [place] [address] * ECG 12 lead (04/17/2024 1:04 PM WELDER MANUFACTURE) Yonis Granda III, MD ECG ORDERABLES Fin al Result from Last 3 Months Insurance MEDICARE [facility] MEDICARE [facility] [employer] MEDICARE [facility] [employer] Advance Directives For more information, please contact: [phone] * LIMITED - No CPR (Latest Code Status on File) Date Activated Date Inactivated Comments 10/24/2023 11:58 AM Question Answer Comments Cardio Resuscitation: No Chest CompressionsNo De fibrillation/Cardioversion Ventilation: No Intubation Care Teams Homicide Squad Commanding Officer Relationship Specialty Start Date End Date Jose Ellis MD [address] [facility] [address] [place] [address] [facility] - General 05/13/16
--- OUTSIDE RECORDS SUMMARY | 2024-06-17 13:47 | XMS_ITS | Encounter Summary ---
Author Organization [facility] Address [address] [place] [address] Care Team Providers Care Cashier Host/Hostess Name Role Phone Jose Ellis MD Primary Care Provider [phone] Encounter Details Date Type Department Care Team (Late st Contact Info) Description 11/22/2017 Lab Requisition [facility] Care DermPath Lab [address] [facility] [place] [phone] Faisal Narvaez MD [address] [place] [address] Social History Tobacco Use Types Packs/Day Years Used Date Smoking Tobacco: Never Assessed Sex and Gender Information Value Date Recorded Sex Assigned at Not on file Legal Sex Male 3:21 PM SHANK STAPLER Gender Identity Not on file Sexual Orientation Not on file documented as of this encounter Plan of Treatment Not on file documented as of this encounter Procedures Procedure Name Priority Date/Time Associated Diagnosis Comments DERMATOPATHOLOGY Routine 11/21/2017 12:0 0 AM CDT documented in this encounter Results * DERMATOPATHOLOGY (11/21/2017 12:00 AM CDT) Case Report Dermatopathology Report Case: [id number] Authorizing Provider: Faisal Narvaez MD Collected: 11/21/2017 12:00 AM Pathologist: Mackenzie Ferrell MD Received: 11/22/2017 12:20 PM Specimens: A) - Skin, right preauric cheek B) - Skin, right med cheek 3:17 PM [facility] DERMATOPATHOLOGY LABORATORY Final Diagnosis Specimen A. 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 SKIN, right med cheek: BASAL CELL CARCINOMA (C44.319) NOT PRESENT AT MARGIN 3:17 PM [facility] DERMATOPATHOLOGY LABORATORY Clinical History A: R/O SCC. B: R/O BCC. 3:17 PM [facility] DERMATOPATHOLOGY LABORATORY Gross Description Specimen A: Received is one formalin filled container labeled with the patient's name and designated right preauric cheek. The specimen consists of a shave biopsy measuring [id number]. Jar 0. Specimen B: Received is one formalin filled container labeled with the patient's name and designated right med cheek.The specimen consists of an ellipse measuring [id number] and is oriented with the notch at the 12 o'clock position labeled on the requisition as sup pole. The epidermal surface consists of centrally located [id number] papule. The 12 to 6 o'clock margin is inked green. The 6 o'clock to 12 o'clock margin is inked black. The 12 o'clock tip is submitted in cassette 1. The 6 o'clock tip is submitted in cassette 2. The remainder of the ellipse is serially sectioned and submitted in cassettes 3-4. Jar 0. 3:17 PM [facility] DERMATOPATHOLOGY LABORATORY Microscopic Description Specimen A. SKIN, [...] tip is flipped and bisected. 3:17 PM [facility] DERMATOPATHOLOGY LABORATORY Disclaimer An external and internal positive and negative controls are appropriate for the histochemical, immunohistochemical and immunofluorescence stain(s) in this case (if any), except where stated explicitly. The performance characteristics of the stain(s) cited in this report were developed and its performance characteristic determined by the Dermatopathology Laboratory at [facility]. These tests need not be, and therefore are not, approved by the [place] Food and Drug Administration. The tests are used for clinical purposes. Billing Codes Specimen Charges Stain Charges 46512 71637 1 1 8 3:17 PM CDT DERMATOPATHOLOGY LABORATORY Embedded Images 8 3:17 PM CDT DERMATOPATHOLOGY LABORATORY Pathology/Cytology TISSUE SPECIMEN FROM SKIN / Unknown 11/21/2017 11/22/2017 12:20 PM CDT Miscellaneous samples (specimen) TISSUE SPECIMEN FROM SKIN / Unknown 11/21/2017 11/22/2017 12:20 PM CDT Faisal Narvaez MD LAB - PATHOLOGY/CYTOLOGY ORD ERABLES Final Result DERMATOPATHOLOGY LABORATORY [facility] - Department of Dermatology [address] [place] [address] 5th Floor Lab [address] [phone] documented in this encounter Visit Diagnoses Not on filedocumented in this encounter Care Teams Cashier Host/Hostess Relationship Specialty Start Date End Date Jose Ellis MD PCP - General 06/28/17 documented as of this encounter
--- OUTSIDE RECORDS SUMMARY | 2024-06-17 13:47 | XMS_ITS | Encounter Summary ---
Author Organization [facility] Address [address] [place] [address] Care Team Providers Care House Cleaner Name Role Phone Jose Ellis MD Primary Care Provider [phone] Encounter Details Date Type Department Care Team (Late st Contact Info) Description 12/12/2022 Lab Requisition [facility] - DermPath Lab [address] [facility] [place] [phone] Faisal Narvaez MD [address] [place] [address] Social History Tobacco Use Types Packs/Day Years Used Date Smoking Tobacco: Never Smokeless Tobacco: Never Alcohol Use Standard Drinks/Week Comments Yes 0 (1 standard drink = 0.6 oz pur e alcohol) Sex and Gender Information Value Date Recorded Sex Assigned at Not on file 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 Gender Identity Not on file Sexual Orientation Not on file documented as of this encounter Plan of Treatment Not on file documented as of this encounter Procedures Procedure Name Priority Date/Time Associated Diagnosis Comments DERMATOPATHOLOGY Routine 12/07/2022 3:33 AM CDT documented in this encounter Results * DERMATOPATHOLOGY (12/07/2022 3:33 AM CDT) Case Report Dermatopathology Report Case: [id number] Authorizing Provider: Faisal Narvaez MD Collected: 12/07/2022 03:33 AM Ordering Location: [facility] DermPath Lab Received: 12/12/2022 09:30 AM Pathologist: [...] characteristic determined by the Dermatopathology Laboratory at [facility], directed by Dr. Rosina Ferrell. These tests need not be, and therefore are not, approved by the [place] Food and Drug Administration. The tests are used for clinical purposes. Billing Codes Specimen Charges Stain Charges 77564 1 5:16 PM CDT DERMATOPATHOLOGY LABORATORY Embedded Images 5:16 PM CDT DERMATOPATHOLOGY LABORATORY Pathology/Cytolo gy TISSUE SPECIMEN FROM SKIN / Unknown 12/07/2022 3:33 AM CDT 12/12/2022 9:30 AM CDT us Faisal Narvaez MD LAB - PATHOLOGY/CYTOLOGY ORD ERABLES Final Result DERMATOPATHOLOGY LABORATORY [facility] - Department of Dermatology [facility] Medicine [address] [facility], [address]rd Floor [address] [phone] documented in this encounter Visit Diagnoses Not on filedocumented in this encounter Care Teams House Cleaner Relationship Specialty Start Date End Date Jose Ellis MD PCP - General 06/28/17 documented as of this encounter
--- OUTSIDE RECORDS SUMMARY | 2024-06-17 13:47 | XMS_ITS | Clinical Summary ---
Author Organization [facility] Address [address] [place] [address] Care Team Providers Care Columnist/Commentator Name Role Phone Jose Ellis MD Primary Care Provider [phone] Source Comments [facility],non-owned Affiliates and Associated Physician Practices is amultiple site organization consisting of ambulatory clinics and hospital sitesin [place], [place], [place] and [place]. This disclosure is being madepursuant to the Care Everywhere program and may not contain all information available regarding this patient. 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 Gender Identity Not on file Sexual Orientation Not on file Last Filed Vital Signs Vital Sign Reading Time Taken Comments Blood Pressure 131/74 12/19/2018 10:43 AM RUG DYER HELPER Pulse 68 12/19/2018 10:43 AM RUG DYER HELPER Temperature 36.5 C (97.7 F) 12/11/2015 10:31 AM CDT Respiratory Rate 14 12/11/2015 10:31 AM CDT Oxygen Saturation 97% 06/05/2015 9:44 AM CDT Inhaled Oxygen Concentration - - Weight 101.2 kg (223 lb) 12/19/2018 10:43 AM RUG DYER HELPER Height 182.9 cm (6') 12/19/2018 10:43 AM RUG DYER HELPER Body Mass Index 30.24 12/19/2018 10:43 AM RUG DYER HELPER Plan of Treatment Health Maintenance Due Date [...] to complete this topic Insurance MEDICARE [facility] MEDICARE [facility] MEDICARE Advance Directives Documents on File Type Date Recorded 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
--- OUTSIDE RECORDS SUMMARY | 2024-06-17 13:47 | XMS_ITS | Encounter Summary ---
Author Organization [facility] Address [address] [place] [address] Care Team Providers Care Cath Lab Nurse Name Role Phone Jose Ellis MD Primary Care Provider [phone] Encounter Details Date Type Department Care Team (Late st Contact Info) Description 08/12/[address] 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 Care DermPath Lab Received: 08/12/2020 01:33 PM Pathologist: Holly Erazo MD Specimens: A) - Skin, right upper chest B) - Skin, right upper back 2:04 PM [facility] DERMAT[facility]Y [facility] Final Diagnosis Specimen A. SKIN, right upper chest: LICHEN PLANUS-LIKE KERATOSIS (BENIGN LICHENOID KERATOSIS) (L82.1) Specimen B. SKIN, right upper back: HYPERPLASTIC (HYPERTROPHIC) ACTINIC KERATOSIS (L57.0) 2:04 PM [facility]MAT[facility]ATH[facility] Clinical History A: R/O BCC, Cummings, SCC, LPLK. B: R/O BCC, rash nos, SCC. 2:04 PM [facility] DERMATOPATH[facility] Gross Description Specimen A: Received is one formalin filled container labeled with the patient's name and designated right upper chest. The specimen consists of a shave biopsy measuring [id number]. Jar 0. Specimen B: Received is one formalin filled container labeled with the patient's name and designated right upper back. The specimen consists of a shave biopsy measuring [id number]. Jar 0. 2:04 PM [facility] DERMAT[facility]ATH[facility] Microscopic Description Specimen A. SKIN, [...] lower half of the epidermis. 2:04 PM [facility] Disclaimer An external and internal positive and negative controls are appropriate for the histochemical, immunohistochemical and immunofluorescence stain(s) in this case (if any), except where stated explicitly. The performance characteristics of the stain(s) cited in this report were developed and its performance characteristic determined by the Dermatopathology Laboratory at [facility], directed by Dr. Rosina Ferrell. These tests need not be, and therefore are not, approved by the [place] Food and Drug Administration. The tests are used for clinical purposes. Billing Codes Specimen Charges Stain Charges 20345 60486 1 1 07/01/202 1 2:04 PM CDT DERMATOPATHOLOGY LABORATORY Embedded Images 1 2:04 PM CDT DERMATOPATHOLOGY LABORATORY Pathology/Cytology TISSUE SPECIMEN FROM SKIN / Unknown 08/11/2020 08/12/2020 1:33 PM CDT Miscellaneous samples (specimen) TISSUE SPECIMEN FROM SKIN / Unknown 08/11/2020 08/12/2020 1:33 PM CDT Faisal Narvaez MD LAB - PATHOLOGY/CYTOLOGY ORD ERABLES Final Result DERMATOPATHOLOGY LABORATORY [facility] - Department of Dermatology [facility] Medicine [address] [place] [address], [address] [phone] documented in this encounter Visit Diagnoses Not on filedocumented in this encounter Care Teams Cath Lab Nurse Relationship Specialty Start Date End Date Jose Ellis MD PCP - General 06/28/17 documented as of this encounter
--- OUTSIDE RECORDS SUMMARY | 2024-06-17 13:47 | XMS_ITS | Clinical Summary ---
Author Organization [facility] Address [address] [place] [address] Care Team Providers Care Loss Prevention Auditor Name Role Phone Jose Ellis MD Primary [...] EP Assessment & Plan (04/17/2024 1:20 PM RUBBER COVERING MACHINE OPERATOR): Chronic, stable. No symptoms. No PVCs/NSVT on ECG today. Stress testing without any evidence of ischemia. Inferior wall fixed defect with normal wall motion more suggestive of artifact. --Continue metoprolol XL 25 mg daily Assessment & Plan (10/24/2023 11:48 AM CDT): No known recurrence. Continue on low dose betablocker. Assessment & Plan (04/21/2023 10:56 AM RUBBER COVERING MACHINE OPERATOR): Continue BB Assessment & Plan (04/12/2023 4:13 PM RUBBER COVERING MACHINE OPERATOR): PVCs with moderate burden (7%) and short [...] reassuring Assessment & Plan (03/10/2023 2:46 PM RUBBER COVERING MACHINE OPERATOR): Start on low dose BB Refer to [...] CT abd ([facility]): right renal mass, ureteral stone. I asked him to bring CT to to compare to 2018 CT 01-03 CT abd ([place]) bilateral exophytic masses 09-03 CT abd: right [...] today. Assessment & Plan (04/05/2021 10:32 AM RUBBER COVERING MACHINE OPERATOR): To continue to efforts at getting 4-5 [...] week. Assessment & Plan (04/21/2023 10:55 AM RUBBER COVERING MACHINE OPERATOR): The blood pressure is adequately controlled. Ideally, I want it below 130/80. Will continue with the same medications as prescribed (metoprolol, irbesartan, amlodipine). Salt intake needs to be restricted to keep the sodium level at less than 2000 mg a day. Regular exercise is also important and should be at least four days a week. Assessment & Plan (03/10/2023 2:46 PM RUBBER COVERING MACHINE OPERATOR): Watch HR and BP on metoprolol. Assessment [...] week. Assessment & Plan (04/12/2022 1:02 PM RUBBER COVERING MACHINE OPERATOR): The blood pressure is adequately controlled. Ideally, [...] week. Assessment & Plan (04/05/2021 10:32 AM RUBBER COVERING MACHINE OPERATOR): The blood pressure is adequately controlled. Ideally, [...] week. Assessment & Plan (03/30/2020 10:07 AM RUBBER COVERING MACHINE OPERATOR): The blood pressure is adequately controlled. Ideally, [...] changes Assessment & Plan (02/19/2019 11:44 AM RUBBER COVERING MACHINE OPERATOR): The blood pressure is adequately controlled. Ideally, [...] week. Assessment & Plan (01/30/2018 11:33 AM RUBBER COVERING MACHINE OPERATOR): The blood pressure is adequately controlled. Ideally, [...] week. Assessment & Plan (03/08/2017 7:38 AM RUBBER COVERING MACHINE OPERATOR): The blood pressure is under good control. [...] today. Assessment & Plan (01/31/2017 1:36 PM RUBBER COVERING MACHINE OPERATOR): The blood pressure is not adequately controlled. [...] recurrence. Assessment & Plan (04/21/2023 10:55 AM RUBBER COVERING MACHINE OPERATOR): No known recurrence. Assessment & Plan (10/31/2022 1:16 PM CDT): No recurrence after resection. Assessment & Plan (04/12/2022 1:03 PM RUBBER COVERING MACHINE OPERATOR): Followed by ENT Assessment & Plan (10/07/2021 10:23 AM CDT): Follows with ENT Assessment & Plan (09/29/2020 1:53 PM CDT): No evidence of recurrence. Follows with ENT. Assessment & Plan (08/27/2019 11:31 AM CDT): No clinical evidence of recurrent disease. Assessment & Plan (02/19/2019 11:44 AM RUBBER COVERING MACHINE OPERATOR): Resected. No known recurrence. Gout 04/22/2013 Overview [...] effect. Assessment & Plan (04/21/2023 10:56 AM RUBBER COVERING MACHINE OPERATOR): No recent exacerbations. Assessment & Plan (10/31/2022 1:15 PM CDT): Follows with GI. Assessment & Plan (04/12/2022 1:03 PM RUBBER COVERING MACHINE OPERATOR): Now on stelara. Followed by GI. Assessment & Plan (10/07/2021 10:24 AM CDT): Not currently active. Follows with GI. Assessment & Plan (04/26/2021 3:29 PM CDT): I doubt that his pain is due to inflammatory arthritis but will check CRP, CBC. Assessment & Plan (04/05/2021 10:32 AM RUBBER COVERING MACHINE OPERATOR): Currently stable. Follows with GI. Assessment & Plan (09/29/2020 1:55 PM CDT): Follows with GI. Symptoms are currently stable. Assessment & Plan (03/30/2020 10:07 AM RUBBER COVERING MACHINE OPERATOR): Currently stable. Follows with GI. Assessment & Plan (08/27/2019 11:31 AM CDT): Currently stable. Assessment & Plan (02/19/2019 11:44 AM RUBBER COVERING MACHINE OPERATOR): Follows with GI. Relatively stable currently. Assessment & Plan (08/06/2018 11:29 AM CDT): Followed by GI. Currently stable. Assessment & Plan (01/30/2018 11:33 AM RUBBER COVERING MACHINE OPERATOR): Currently stable on current regimen. Assessment & [...] urology. Assessment & Plan (04/05/2021 10:59 AM RUBBER COVERING MACHINE OPERATOR): Drink plenty of water. At least 2 [...] 18 Assessment & Plan (03/21/2017 11:41 AM RUBBER COVERING MACHINE OPERATOR): I suspect this is pulmonary. Will treat for atypical organisms with azithromycin. Will have him start albuterol. Reassess in two weeks. Will consider full PFT's and a chest CT if no better. Assessment & Plan (03/08/2017 9:54 AM RUBBER COVERING MACHINE OPERATOR): Will get chest xray Will get echo [...] 25.0. Assessment & Plan (04/05/2021 10:59 AM RUBBER COVERING MACHINE OPERATOR): He needs to continue efforts at weight [...] 25.0. Assessment & Plan (03/30/2020 10:07 AM RUBBER COVERING MACHINE OPERATOR): He needs to continue efforts at weight [...] counseling. Assessment & Plan (02/19/2019 11:45 AM RUBBER COVERING MACHINE OPERATOR): He needs to continue efforts at weight [...] 25.0. Assessment & Plan (01/30/2018 11:56 AM RUBBER COVERING MACHINE OPERATOR): He needs to continue efforts at weight loss through regular exercise and calorie restriction, making sure to avoid high fat foods, simple carbohydrates (sugars) and any beverages containing sugar. To work at eating at least 4-5 servings of fruits and vegetables a day. The ideal BMI is 25.0. Assessment & Plan (01/31/2017 1:29 PM RUBBER COVERING MACHINE OPERATOR): He needs to continue efforts at weight [...] Description 05/20/2024 2:00 PM CDT Procedure visit [facility] Otolaryngology [address] [place] [phone] Yomaira Pérez Au.D. Sensorineural hearing loss, bilateral (Primary Dx); Subjective tinnitus, bilateral 05/15/2024 Orders Only [facility] Primary Care at [address] [place] [phone] Jose Ellis MD 04/24/2024 Results Follow-Up [facility] Primary Care at [address] [place] [phone] Jose Ellis MD 04/23/2024 2:15 PM CDT - 04/23/2024 11:59 PM CDT Hospital Encounter [id number] [place] [address] Discharge Disposition: Discharge to home or self care 04/23/2024 1:45 PM CDT Lab [facility] Primary Care at [address] [place] [phone] Gout, unspecified cause, unspecified chronicity, unspecified site 04/23/2024 1:30 PM CDT Office Visit [facility] Primary Care at [address] [place] [phone] Jose Ellis MD Gout, unspecified cause, unspecified chronicity, unspecified site (Primary Dx); Crohn's disease of small intestine without complication (HCC); Class 1 obesity due to excess calories with serious comorbidity and body mass index (BMI) of 30.0 to 30.9 in adult; Rash; Leukopenia, unspecified type; Malignant neoplasm of tongue (CMS/HCC) (HCC) 04/17/2024 1:00 PM RUBBER COVERING MACHINE OPERATOR [facility] [address] [place] [address] Yonis Granda III, MD NSVT (nonsustained ventricular tachycardia) (HCC) (Primary Dx); Cardiac arrhythmia, unspecified cardiac arrhythmia type 04/03/2024 1:45 PM RUBBER COVERING MACHINE OPERATOR Office Visit [facility] Primary Care at [facility] [address] [place] [address] Jose Ellis MD Left arm pain (Primary Dx); Axillary pain, right from Last 3 Months Immunizations Immunization Administration Dates Next Due COVID-19 mRNA (tydy) 0.3 m L (30 mcg) vaccine (12 [...] on file Legal Sex Male 11:21 PM RUBBER COVERING MACHINE OPERATOR Gender Identity Male 08/26/2019 8:43 AM CDT Sexual Orientation Straight 08/26/2019 8: 43 AM CDT Obstetrics History Last Filed Vital Signs Vital Sign Reading Time Taken Comments Blood Pressure 139/78 04/23/2024 12:57 PM CDT Pulse 76 04/17/2024 1:07 PM RUBBER COVERING MACHINE OPERATOR Temperature 37.2 C (99 F) 01/31/2023 2:52 PM RUBBER COVERING MACHINE OPERATOR Respiratory Rate 12 10/06/2020 1:21 PM CDT Oxygen Saturation 97% 04/12/2023 2:53 PM RUBBER COVERING MACHINE OPERATOR Inhaled Oxygen Concentration - - Weight 98 [...] site ECG 12-LEAD Routine 04/17/2024 1:04 PM RUBBER COVERING MACHINE OPERATOR Cardiac arrhythmia, unspecified cardiac arrhythmia type from Last 3 Months Results * [facility] Results (05/20/2024 1:52 PM CDT) us Provider Scanning AUDIOLOGY SERVICES ORDERABLES Final Result * (ABNORMAL) CBC with auto differential (04/23/2024 1:37 PM CDT) WBC 2.3(L) 3.8 - 9.9 K/cumm Hgb 13.8 13.0 - 17.5 g/dL [facility] Hct 42.5 38.9 - 50.3 % [facility] Plt 173 150 - 400 K/cumm [facility] MPV 11.7 9.1 - 12.3 fL [facility] RBC 4.64 4.30 - 5.80 M/cumm [facility] MCV 91.6 81.3 - 96.4 fL [facility] MCH 29.7 27.1 - 33.3 pg [facility] MCHC 32.5 32.3 - 35.7 g/dL [facility] RDW CV 14.1 11.1 - 14.9 % [facility] RDW SD 46.9 35.7 - 48.1 fL [facility] NRBC abs 0.00 0.00 - 0.01 K/cumm [facility] Blood 04/23/2024 1:37 PM CDT 04/23/2024 7:46 PM CDT Jose Ellis MD LAB BLOOD ORDERABLES Final Result [facility] [address] [place] [address] * (ABNORMAL) Manual Differential (04/23/2024 1:37 PM CDT) Differential Manual Cells Counted 114 [facility] Neutrophil abs 0.7(L) 1.5 - 6.5 K/cumm [facility] Imm gran abs 0.1 0.0 - 0.1 K/cumm [facility] Lymphocyte abs 1.3 0.8 - 3.3 K/cumm [facility] Monocyte abs 0.2 0.2 - 0.8 K/cumm [facility] Basophil abs 0.0 0.0 - 0.1 K/cumm [facility] Neutrophil pct 31.6 % [facility] Comment: Interpretive Data Percent cell count reference ranges are not reported, since discordance with absolute values may lead to misinterpretation of CBC data. Current Interpretive Data was last revised on 2017. Lymphocyte pct 50.0 % [facility] Comment: Interpretive Data Percent cell count reference ranges are not reported, since discordance with absolute values may lead to misinterpretation of CBC data. Current Interpretive Data was last revised on 2017. Monocyte pct 7.9 % [facility] Comment: Interpretive Data Percent cell count reference ranges are not reported, since discordance with absolute values may lead to misinterpretation of CBC data. Current Interpretive Data was last revised on 2017. Basophil pct 0.9 % [facility] Comment: Interpretive Data Percent cell count reference ranges are not reported, since discordance with absolute values may lead to misinterpretation of CBC data. Current Interpretive Data was last revised on 2017. Myelocyte pct 3.5(H) 0.0 - 0.0 % [facility] Variant lymph pct 6.1(H) 0.0 - 0.0 % [facility] RBC morphology Present(A) [facility] Anisocytosis Slight(A) [facility] Microcytes 3-7/HPF(A) [facility] Morphology scrn See Comment [facility] Comment:PLT: Platelet morpho logy normal Blood 04/23/2024 1:37 PM CDT 04/23/2024 7:46 PM CDT us Jose Ellis MD LAB BLOOD ORDERABLES Final Result [facility] [address] [place] [address] * ECG 12 lead (04/17/2024 1:04 PM RUBBER COVERING MACHINE OPERATOR) us Yonis Granda III, MD ECG ORDERABLES Fin al Result from Last 3 Months Insurance MEDICARE [facility] MEDICARE [facility] FEDERAL MEDICARE [facility] Advance Directives For more information, please contact: [phone] * LIMITED - No CPR (Latest Code Status on File) Date Activated Date Inactivated Comments 10/24/2023 11:58 AM Question Answer Comments Cardio Resuscitation: No Chest CompressionsNo De fibrillation/Cardioversion Ventilation: No Intubation Care Teams Loss Prevention Auditor Relationship Specialty Start Date End Date Jose Ellis MD [address] [facility] [address] [facility] [address] [place] [address] [facility] - General 05/13/16
== END 2024-06-17 13:12 | disposition home or self-care (01) ==
PROVIDERS: PCP Internal Medicine; Visit Provider Urology
DX: N20.0 Calculus of kidney (principal); N21.0 Calculus in bladder; N20.1 Calculus of ureter
CPT/HCPCS: 74176